=== PATIENT | female | born 1995 ===

== ENCOUNTER 2017-12-31 15:21 | Emergency (ER) | payer MEDICAID ==
[2017-12-31] MEDS ORDERED: Sodium Chloride 0.9% 1,000 ML IV STA (15:55)
--- NOTE | 2017-12-31 16:13 | ED PDOC ---
HPI: Chest Pain Time Seen by Provider: 12/31/17 15:47 Chief Complaint (Nursing): Palpitations Chief Complaint (Provider): Palpitations History Per: Patient History/Exam Limitations: no limitations Onset/Duration Of Symptoms: Days Current Symptoms Are (Timing): Still Present Additional Complaint(s): 22 y/o female with no significant PMHx presents to the ED for evaluation of on and off, sporadic palpitations, onset 3 months ago. Patient states palpitations are associated with shortness of breath and dizziness/lightheadedness. Patient reports symptoms resolve spontaneously. Denies nausea, vomiting, diarrhea, leg main, weakness, numbness, increase in caffeine intake, medications for pain and cough. No hormone pills or long distance travel. Patient is not on any me dications. No chest pain. PMD: No Provider Past Medical History Reviewed: Historical Data, Nursing Documentation, Vital Signs Vital Signs: Last Vital Signs Temp 97.3 F L 12/31/17 15:36 Pulse 79 12/31/17 17:55 Resp 20 12/31/17 17:55 BP 125/75 12/31/17 17:55 Pulse Ox 96 12/31/17 18:04 - Medical History PMH: No Chronic Diseases - Surgical History Surgical History: No Surg Hx - Family History Family History: States: Unknown Family Hx - Allergies Allergies/Adverse Reactions: Allergies Allergy/AdvReac Type Severity Reaction Status Date / Time No Known Allergies Allergy Verified 12/31/17 15:36 Review of Systems ROS Statement: Except As Marked, All Systems Reviewed And Found Negative Cardiovascular: Positive for: Palpitations Respiratory: Positive for: Shortness of Breath. Negative for: Cough Gastrointestinal: Negative for: Nausea, Vomiting, Diarrhea, Other (caffeine intake) Musculoskeletal: Negative for: Leg Pain Neurological: Positive for: Dizziness. Negative for: Weakness, Numbness Physical Exam - Reviewed Nursing Documentation Reviewed: Yes Vital Signs Reviewed: Yes - Physical Exam Appears: Positive for: Non-toxic, No Acute Distress Head Exam: Positive for: ATRAUMATIC, NORMOCEPHALIC Skin: Positive for: Normal Color, Warm, Dry Eye Exam: Positive for: Normal appearance, EOMI, PERRL ENT: Positive for: Normal ENT Inspection Neck: Positive for: Normal, Painless ROM, Supple Cardiovascular/Chest: Positive for: Regular Rate, Rhythm. Negative for: Edema, Murmur Respiratory: Positive for: Normal Breath Sounds. Negative for: Respiratory Distress Gastrointestinal/Abdominal: Positive for: Normal Exam, Soft. Negative for: Ten derness Back: Positive for: Normal Inspection. Negative for: L CVA Tenderness, R CVA Tenderness Extremity: Positive for: Normal ROM. Negative for: Tenderness, Pedal Edema, Deformity Neurologic/Psych: Positive for: Alert, teacher home therapy II-XII (INTACT), Oriented. Negative for: Motor/Sensory Deficits - Laboratory Results Result Diagrams: 12/31/17 16:36 12/31/17 16:36 Interpretation Of Abn Labs: no acute - ECG ECG: Positive for: Interpreted By Me, Viewed By Me ECG Rhythm: Positive for: ST/T Changes (anterior leads with inverted t waves.) O2 Sat by Pulse Oximetry: 96 (RA) Pulse Ox Interpretation: Normal - Progress ED Course And Treament: 1856: Stable. Dr. Amado to fu on imaging. Medical Decision Making Medical Decision Making: Time: 1600 Plan: -- EKG -- CMP -- Troponin I -- ED Urine -- CBC with differentials -- Sodium Chloride IV 1000 mls/hr -- POC Scribe Attestation: Documented by Jose Gordillo, acting as a scribe for Serafin Crespo MD. Provider Scribe Attestation: All medical record entries made by the Scribe were at my direction and personally dictated by me. I have reviewed the chart and agree that the record accurately reflects my personal performance of the history, physical exam, medical decision making, and the department course for this patient. I have also personally directed, reviewed, and agree with the discharge instructions and disposition. Disposition - Clinical Impression Clinical Impression: Palpitations, Dyspnea - Patient ED Disposition Is Patient to be Admitted: Yes - Disposition Disposition: Transfer of Care Disposition Time: 18:57 Condition: STABLE Patient Signed Over To: Shashi Amado
[2017-12-31 16:53] LABS: ALB/GLOB RATIO 1.1 (1.0-2.1); ALBUMIN 4.8 g/dL (3.5-5.0); BLOOD UREA NITROGEN 16 mg/dl (7-17); CALCIUM 9.6 mg/dL (8.4-10.2); GFR NON-AFRICAN AMERICAN > 60
[2017-12-31 16:59] LABS: BASO # 0.1 K/uL (0.0-0.2); BASO % 1.3 % (0.0-2.0); EOS # 0.2 K/uL (0.0-0.7); EOS % 1.8 % (0.0-4.0); HEMOGLOBIN 12.2 g/dL (12.0-16.0); LYMPH # 3.1 K/uL (1.0-4.3); LYMPH % 28.8 % (20.0-40.0); MEAN CELL VOLUME 72.3 fl (81.0-99.0); MEAN CORPUSCULAR HEMOGLOBIN 22.8 pg (27.0-31.0); MEAN CORPUSCULAR HGB CONC 31.5 g/dL (33.0-37.0); MEAN PLATELET VOLUME 8.5 fl (7.2-11.7); MONO # 0.9 K/uL (0.0-0.8); MONO % 8.1 % (0.0-10.0); NEUT # 6.5 K/uL (1.8-7.0); NRBC % 0.1 % (0.0-0.0); RBC 5.37 Mil/uL (3.80-5.20); WHITE BLOOD COUNT 10.8 K/uL (4.8-10.8)
[2017-12-31 17:02] LABS: ALT/SGPT 32 U/L (9-52); AST/SGOT 46 U/L (14-36)
[2017-12-31] MEDS ORDERED: Sodium Chloride 0.9% 50 ML IV ONE (18:09)
[2017-12-31] MEDS ORDERED: Iodixanol 320 MG/ML 100 ML BOTTLE IV ONE (18:09)
--- NOTE | 2017-12-31 19:01 | CT ---
Date of service: 12/31/2017 PROCEDURE: CT Chest with contrast (Pulmonary Angiogram) HISTORY: chest pain COMPARISON: None available. TECHNIQUE: Axial computed tomography images were obtained of the chest in the pulmonary arterial phase of enhancement. Coronal and sagittal reformatted images were created and reviewed. Intravenous contrast dose: Visipaque 320, 70 cc Radiation dose: Total exam DLP = 217.38 mGy-cm. This CT exam was performed using one or more of the following dose reduction techniques: Automated exposure control, adjustment of the mA and/or kV according to patient size, and/or use of iterative reconstruction technique. FINDINGS: PULMONARY ARTERIES: Unremarkable. No pulmonary embolism. AORTA: The thoracic aorta is normal in caliber. Main pulmonary artery is dilated to 3.1 cm. Clinically correlate for potential pulmonary artery hypertension. LUNGS: Unremarkable. No nodule, mass or pulmonary consolidation. PLEURAL SPACES: Unremarkable. No effusion or pneumothorax. HEART: Unremarkable. No cardiomegaly. No significant pericardial effusion. LYMPH NODES: No lymphadenopathy. BONES, CHEST WALL: Unremarkable. No fracture or destructive lesion OTHER FINDINGS: Unremarkable. IMPRESSION: 1. No pulmonary embolus identified by standard CT criteria. 2. No pulmonary infiltrate, pleural or pericardial effusion or significant lymphadenopathy. Main pulmonary artery appears somewhat dilated though not prominently so. Consider potential limited pulmonary artery hypertension. Clinically correlate further.
--- NOTE | 2017-12-31 19:05 | ED PDOC ---
- Laboratory Results Result Diagrams: 12/31/17 16:36 12/31/17 16:36 - ECG O2 Sat by Pulse Oximetry: 96 (RA) Pulse Ox Interpretation: Normal Medical Decision Making Medical Decision Making: Time: 1899 -- Patient endorsed to me by Dr. Crespo, pending CT scan results. 2099 -- Patient is feeling much better, no longer having shortness of breath -- Second troponin negative, Second EKG unchanged -- Case discussed with on-call blind eyeletter Dr. Goncalves who recommends no further intervention -- Will discharge to with strict instructions to followup in clinic in 2 days -- Advised to return to ER sooner if any worsening shortness of breath, chest pain, palpitations, dizziness, or any other concerning symptoms -- Upon discharge, patient is very well appearing with stable vital signs Scribe Attestation: Documented by Jose Gordillo acting as a scribe for Shashi Amado MD. Provider Scribe Attestation: All medical record entries made by the Scribe were at my direction and personally dictated by me. I have reviewed the chart and agree that the record accurately reflects my personal performance of the history, physical exam, medical decision making, and the department course for this patient. I have also personally directed, reviewed, and agree with the discharge instructions and disposition. Disposition - Clinical Impression Clinical Impression: Palpitations, Dyspnea - POA Present On Arrival: None - Disposition Referrals: [facility] [place] [Outside] Formerly [facility] [Outside] Disposition: Routine/Home Disposition Time: 21:21 Condition: STABLE Additional Instructions: You MUST followup in the clinic in 2 days for a checkup. If your symptoms of shortness of breath, palpitations, or any other concerning symptoms arise such as chest pain, please return to the ER for re-evaluation. Instructions: Palpitations, Shortness of Breath (Dyspnea) (DC) Forms: [facility] (Romansh)
[2017-12-31 19:12] LABS: ABG ALLEN TEST YES; ARTERIAL BLOOD GAS HCO3 20.7 mmol/L (21-28); ARTERIAL BLOOD GAS O2 SAT 92.5 % (95-98); ARTERIAL BLOOD GAS PCO2 24 mm/Hg (35-45); ARTERIAL BLOOD GAS PH 7.46 (7.35-7.45); ARTERIAL BLOOD GAS PO2 55 mm/Hg (80-100); ARTERIAL BLOOD GAS TCO2 17.8 mmol/L (22-28)
[2017-12-31 22:02] VITALS: BP 112/66; PULSE 66; RESP 18; TEMP 98.2; O2SAT 99
--- NOTE | 2018-01-01 07:52 | CARD ---
APPROVED REPORT Date of service: 12/31/2017 EKG Measurement Heart [id number] <Conclusion> Normal sinus rhythm Biatrial enlargement Right ventricular hypertrophy with repolarization abnormality Nonspecific T wave abnormality Prolonged QT Abnormal ECG
--- NOTE | 2018-01-01 10:32 | CARD ---
APPROVED REPORT Date of service: 12/31/2017 <Conclusion> Normal sinus rhythm Biatrial enlargement Right axis deviation Right ventricular hypertrophy with repolarization abnormality Nonspecific T wave abnormality Prolonged QT Abnormal ECG
== END 2017-12-31 21:42 | disposition home or self-care (01) ==
LOC: H.ER 15:21
DX: R00.2 Palpitations (principal); R06.00 Dyspnea, unspecified
CPT/HCPCS: 71275; 80053; 81025; 82803; 82948; 84484; 85025; 93005; 96360; 99285; J7030; Q9967

== ENCOUNTER 2018-01-03 16:12 | Inpatient (IN) | payer MEDICAID ==
--- NOTE | 2018-01-03 16:34 | ED PDOC ---
HPI: SOB/CHF/COPD Time Seen by Provider: 01/03/18 16:22 Chief Complaint (Nursing): Syncope Chief Complaint (Provider): SOB History Per: Patient History/Exam Limitations: no limitations Additional Complaint(s): Pt sent from [facility] for SOB. Pt reports 2 block WOLFE and palpitations X 2 months, constant. Denies fever, CP, recent travel, OCP use, calf pain/swelling. FP discussed case with Dr. Hardin who recommended admission and echo. - Risk Factors PE Risk Factors: Neg: Previous DVT, Previous PE Past Medical History Reviewed: Nursing Documentation, Vital Signs Vital Signs: Last Vital Signs Temp 97.6 F 01/03/18 16:14 Pulse 93 H 01/03/18 16:14 Resp 19 01/03/18 16:14 BP 119/63 01/03/18 16:14 Pulse Ox 100 01/03/18 16:14 - Medical History PMH: No Chronic Diseases - Surgical History Surgical History: No Surg Hx - Family History Family History: States: No Known Family Hx - Social History Current smoker - smoking cessation education provided: No Alcohol: None - Home Medications Home Medications: Ambulatory Orders Medication Instructions Recorded Apixaban [Eliquis] 2.5 mg PO BID #60 tab 01/08/18 - Allergies Allergies/Adverse Reactions: Allergies Allergy/AdvReac Type Severity Reaction Status Date / Time No Known Allergies Allergy Verified 12/31/17 15:36 Wells Criteria for PE - Wells Criteria for Pulmonary Embolism Clinical Signs and Symptoms of DVT: No P.E is #1 Diagnosis, or Equally Likely: No Heart Rate >100: No Immobilization at least 3 days;Surgery previous 4 weeks: No Previous, objectively diagnosed PE or DVT: No Hemoptysis: No Malignancy w/treatment within 6 months, or palliative: No Total Score: 0 Review of Systems Constitutional: Negative for: Fever, Chills Cardiovascular: Positive for: Palpitations. Negative for: Chest Pain, Edema Respiratory: Positive for: Shortness of Breath, SOB with Exertion. Negative for: Cough Gastrointestinal: Negative for: Abdominal Pain Skin: Negative for: Rash, Lesions Neurological: Negative for: Headache, Dizziness Physical Exam - Reviewed Nursing Documentation Reviewed: Yes Vital Signs Reviewed: Yes - Physical Exam Appears: Positive for: Well, No Acute Distress (Speaking full sentences) Skin: Positive for: Normal Color, Warm, Dry Eye Exam: Positive for: EOMI, PERRL Cardiovascular/Chest: Positive for: Regular Rate, Rhythm, Other (S3). Negative for: Murmur, Irregularly Irregular Respiratory: Positive for: Normal Breath Sounds. Negative for: Rales, Rhonchi, Wheezing Gastrointestinal/Abdominal: Positive for: Normal Exam Extremity: Positive for: Normal ROM. Negative for: Tenderness, Pedal Edema, Calf Tenderness, Swelling Neurologic/Psych: Positive for: Alert, Oriented - Laboratory Results Result Diagrams: 01/10/18 04:25 01/10/18 04:25 - ECG O2 Sat by Pulse Oximetry: 100 Medical Decision Making Medical Decision Makin yo female with WOLFE and palpitations. - labs - EKG - CXR - echo Accession No. : [id number] Patient Name / ID : CAROLIN SOSA / [id number] Exam Date : 01/03/2018 16:55:40 ( Approved ) Study Comment : Sex / Age : F / 22Y Creator : Prosper Wolfe MD Dictator : Prosper Wolfe MD [employer] Member : [employer] Officer : Prosper Wolfe MD Approver2 : Report Date : 01/03/2018 17:11:02 My Comment : Date of service: 01/03/2018 HISTORY: SOB COMPARISON: Correlations made to CT angiography of the pulmonary arteries performed 12/31/2017. TECHNIQUE: Chest PA and lateral FINDINGS: LUNGS: No active pulmonary disease. PLEURA: No significant pleural effusion identified. No pneumothorax apparent. CARDIOVASCULAR: Stable prominence of the main pulmonary artery. Cardiomediastinal silhouette otherwise within normal limits. OSSEOUS STRUCTURES: No significant abnormalities. VISUALIZED UPPER ABDOMEN: Normal. OTHER FINDINGS: None. IMPRESSION: No active disease. Disposition - Clinical Impression Clinical Impression: Palpitations, Dyspnea - Patient ED Disposition Is Patient to be Admitted: Yes - Disposition Disposition Time: 19:04 Condition: STABLE - Pt Status Changed To: Hospital Disposition Of: Inpatient - Admit Certification Admit to Inpatient:: After my assessment, the patient will require hospitalization for at least two midnights. This is because of the severity of symptoms shown, intensity of services needed, and/or the medical risk in this patient being treated as an outpatient. - POA Present On Arrival: None
[2018-01-03 16:48] LABS: BASO # 0.1 K/uL (0.0-0.2); EOS # 0.1 K/uL (0.0-0.7); EOS % 0.9 % (0.0-4.0); HEMOGLOBIN 12.7 g/dL (12.0-16.0); LYMPH # 3.3 K/uL (1.0-4.3); MEAN CORPUSCULAR HEMOGLOBIN 22.5 pg (27.0-31.0); MEAN CORPUSCULAR HGB CONC 31.2 g/dL (33.0-37.0); MONO # 0.7 K/uL (0.0-0.8); MONO % 6.8 % (0.0-10.0); NEUT # 5.6 K/uL (1.8-7.0); NEUT % 57.3 % (50.0-75.0); RBC 5.64 Mil/uL (3.80-5.20); RED CELL DISTRIBUTION WIDTH 17.6 % (11.5-14.5); WHITE BLOOD COUNT 9.7 K/uL (4.8-10.8)
[2018-01-03 16:53] LABS: INR 1.3; PROTHROMBIN TIME 14.1 Seconds (9.8-13.1)
[2018-01-03 17:11] LABS: ALB/GLOB RATIO 1.1 (1.0-2.1); ALBUMIN 5.1 g/dL (3.5-5.0); ALT/SGPT 34 U/L (9-52); AST/SGOT 32 U/L (14-36); BLOOD UREA NITROGEN 13 mg/dl (7-17); CALCIUM 9.7 mg/dL (8.4-10.2); GFR NON-AFRICAN AMERICAN > 60
--- NOTE | 2018-01-03 17:13 | RAD ---
Date of service: 01/03/2018 HISTORY: SOB COMPARISON: Correlations made to CT angiography of the pulmonary arteries performed 12/31/2017. TECHNIQUE: Chest PA and lateral FINDINGS: LUNGS: No active pulmonary disease. PLEURA: No significant pleural effusion identified. No pneumothorax apparent. CARDIOVASCULAR: Stable prominence of the main pulmonary artery. Cardiomediastinal silhouette otherwise within normal limits. OSSEOUS STRUCTURES: No significant abnormalities. VISUALIZED UPPER ABDOMEN: Normal. OTHER FINDINGS: None. IMPRESSION: No active disease.
[2018-01-03 17:19] LABS: B-TYPE NATRIURETIC PEPTIDE 1450 pg/ml (0-450)
[2018-01-03] MEDS ORDERED: Iodixanol 320 MG/ML 100 ML BOTTLE IV ONE (17:42)
[2018-01-03] MEDS ORDERED: Sodium Chloride 0.9% 50 ML IV ONE (17:42)
[2018-01-03 17:43] LABS: SQUAMOUS EPITHIAL 1 /hpf (0-5); URINE BILIRUBIN NEGATIVE (NEGATIVE); URINE BLOOD NEGATIVE (NEGATIVE); URINE CLARITY SLIGHTY-CLOUDY (Clear); URINE COLOR YELLOW (YELLOW); URINE GLUCOSE (UA) NEG (Normal); URINE LEUKOCYTE ESTERASE TRACE Leu/uL (Negative); URINE PROTEIN 30 mg/dL (NEGATIVE); URINE UROBILINOGEN 0.2-1.0 mg/dL (0.2-1.0)
--- NOTE | 2018-01-03 18:58 | CT ---
Date of service: 01/03/2018 CTA chest PE protocol Indication: Shortness of breath Technique: Contiguous axial images were obtained through the chest with intravenous contrast enhancement. Sagittal and coronal reconstructions were generated and reviewed. This CT exam was performed using 1 or more of the following dose reduction techniques: Automated exposure control, adjustment of the MAA and/or kV according to patient size, and/or use of iterative reconstruction technique. IV contrast: 99 mL Visipaque 320 Radiation dose (DLP): 185.41 MGy-cm. Comparison: Chest x-ray performed 01/03/18 Findings: Visualized portions of the inferior thyroid gland appear unremarkable. The mediastinal and hilar vascular structures appear within normal limits. The heart appears within normal limits of size. No large central or segmental pulmonary embolus evident. No focal consolidation. No pleural effusion. No pneumothorax. No suspicious pulmonary nodules measuring greater than 5 mm. Elevation of the right hemidiaphragm. Limited visualized portions of the upper abdomen appear grossly unremarkable. No acute osseous abnormality is detected. Impression: No large central or segmental pulmonary embolus identified.
--- NOTE | 2018-01-03 20:02 | CP.PCM.HP ---
<Keenan Roy - Last Filed: 01/03/18 19:25> History of Present Illness - History of Present Illness History of Present Illness: CC: dyspnea HPI: 22 y/o woman w/ no pmh sent from the clinic to the ED for dyspnea. Patient was seen in [facility] today and during ambulation, her O2 saturation dropped down in the 80s. The patient reports episodes of dyspnea w/ palpitations going on for the past 2 months. The patient is unsure of when exactly or how her symptoms started. Patient reports episodes are becoming more frequent and she is unable to walk without becoming short of breath after a few feet. Patient works in a [employer] and is unable to walk down entire aisle without becoming short of breath. Patient reports associated palpitations, headaches, and lightheadedness that lasts a few seconds. Patient reports 1 episode of LOC about 1 month ago for which she was brought to [facility]. Patient denies trauma, seizure, nausea, vomiting, diarrhea, dysuria, fever, swelling, recent illness, or recent travel. ED course: vitals: 98.3 F, 85 beats/min, 106/67 mm Hg, resp 19, O2 95% room air CBC: 9.7>12.7/40.6<424 PT: 14.1 INR: 1.3 aPTT: 35.0 D-dimer: 2102 CMP: 142/3.8, 107/20, 13/0.6, glucose 81, AST 32, ALT 34, alk phos 101 troponin: <0.0120 pro-BNP: 1450 TSH: 4.60 EKG: right axis deviation, RVH CXR: no active disease CT chest: no large central or segmental pulmonary embolus PMD: [facility] PMH: none meds: none PSH: none Fam: Hx LVH on mother's side of the family SOC: denies smoking, alcohol, and drugs ROS: 12 points assessed and negative unless otherwise reported in HPI Present on Admission - Present on Admission Any Indicators Present on Admission: No History of DVT/PE: No History of Uncontrolled Diabetes: No Urinary Catheter: No Decubitus Ulcer Present: No Review of Systems - Review of Systems All systems: reviewed and no additional remarkable complaints except - Constitutional Constitutional: Headache. absent: Chills, Fever - EENT Eyes: absent: Change in Vision - Cardiovascular Cardiovascular: As Per HPI, Dyspnea, Dyspnea on Exertion, Palpitations, Syncope. absent: Chest Pain, Leg Edema - Respiratory Respiratory: As Per HPI, Dyspnea. absent: Cough - Gastrointestinal Gastrointestinal: absent: Abdominal Pain, Diarrhea, Nausea, Vomiting - Genitourinary Genitourinary: absent: Dysuria - Integumentary Integumentary: absent: Rash - Neurological Neurological: Dizziness, Headaches, Syncope Past Patient History - Infectious Disease Hx of Infectious Diseases: None - Past Social History Alcohol: None - PSYCHIATRIC Hx Substance Use: No Meds Allergies/Adverse Reactions: Allergies Allergy/AdvReac Type Severity Reaction Status Date / Time No Known Allergies Allergy Verified 12/31/17 15:36 Physical Exam - Constitutional Appears: Non-toxic, No Acute Distress - Head Exam Head Exam: ATRAUMATIC, NORMAL INSPECTION, NORMOCEPHALIC - Eye Exam Eye Exam: EOMI, PERRL Additional comments: right amblyopia - ENT Exam ENT Exam: Mucous Membranes Moist - Neck Exam Neck exam: Positive for: Full Rom. Negative for: Tenderness - Respiratory Exam Respiratory Exam: Clear to Auscultation Bilateral. absent: Accessory Muscle Use, Decreased Breath Sounds, Rales, Rhonchi, Wheezes - Cardiovascular Exam Cardiovascular Exam: Tachycardia, Gallop, REGULAR RHYTHM, +S1, +S2. absent: Diastolic murmur, Systolic Murmur - GI/Abdominal Exam GI & Abdominal Exam: Normal Bowel Sounds, Soft. absent: Distended, Tenderness - Extremities Exam Extremities exam: Positive for: normal inspection, pedal pulses present. Negative for: calf tenderness, pedal edema, tenderness - Neurological Exam Neurological exam: Alert, Oriented x3 - Psychiatric Exam Psychiatric exam: Normal Affect, Normal Mood - Skin Skin Exam: Dry, Intact, Normal Color, Warm Results - Vital Signs Recent Vital Signs: Last Vital Signs Temp 97.6 F 01/03/18 16:14 Pulse 93 H 01/03/18 16:14 Resp 19 01/03/18 16:14 BP 119/63 01/03/18 16:14 Pulse Ox 100 01/03/18 17:14 - Labs Result Diagrams: 01/03/18 16:44 01/03/18 16:44 Labs: Laboratory Results - last 24 hr 01/03/18 01/03/18 01/03/18 16:44 16:44 16:44 WBC 9.7 RBC 5.64 H Hgb 12.7 Hct 40.6 MCV 72.0 L MCH 22.5 L MCHC 31.2 L RDW 17.6 H Plt Count 424 H MPV 8.0 Neut % (Auto) 57.3 Lymph % (Auto) 34.0 Leon % (Auto) 6.8 Eos % (Auto) 0.9 Baso % (Auto) 1.0 Neut # (Auto) 5.6 Lymph # (Auto) 3.3 Leon # (Auto) 0.7 Eos # (Auto) 0.1 Baso # (Auto) 0.1 PT 14.1 H INR 1.3 APTT 35.0 D-Dimer, Quantitative 2102 H Sodium 142 Potassium 3.8 Chloride 107 Carbon Dioxide 20 L Anion Gap 19 BUN 13 Creatinine 0.6 L Est GFR ( Amer) > 60 Est GFR (Non-Af Amer) > 60 Random Glucose 81 Calcium 9.7 Total Bilirubin 0.7 AST 32 ALT 34 Alkaline Phosphatase 101 Troponin I < 0.0120 NT-Pro-B Natriuret Pep 1450 H Total Protein 9.6 H Albumin 5.1 H Globulin 4.5 H Albumin/Globulin Ratio 1.1 TSH 3rd Generation Urine Color Urine Clarity Urine pH Ur Specific [place] Urine Protein Urine Glucose (UA) Urine Ketones Urine Blood Urine Nitrate Urine Bilirubin Urine Urobilinogen Ur Leukocyte Esterase Urine RBC (Auto) Urine Microscopic WBC Ur Squamous Epith Cells Blood Type Antibody Screen BBK History Checked 01/03/18 01/03/18 01/03/18 16:46 17:34 17:40 WBC RBC Hgb Hct MCV MCH MCHC RDW Plt Count MPV Neut % (Auto) Lymph % (Auto) Leon % (Auto) Eos % (Auto) Baso % (Auto) Neut # (Auto) Lymph # (Auto) Leon # (Auto) Eos # (Auto) Baso # (Auto) PT INR APTT D-Dimer, Quantitative Sodium Potassium Chloride Carbon Dioxide Anion Gap BUN Creatinine Est GFR ( Amer) Est GFR (Non-Af Amer) Random Glucose Calcium Total Bilirubin AST ALT Alkaline Phosphatase Troponin I NT-Pro-B Natriuret Pep Total Protein Albumin Globulin Albumin/Globulin Ratio TSH 3rd Generation 4.60 Urine Color Yellow Urine Clarity Slighty-cloudy Urine pH 5.0 Ur Specific [place] 1.019 Urine Protein 30 Urine Glucose (UA) Neg Urine Ketones Negative Urine Blood Negative Urine Nitrate Negative Urine Bilirubin Negative Urine Urobilinogen 0.2-1.0 Ur Leukocyte Esterase Trace Urine RBC (Auto) 1 Urine Microscopic WBC 2 Ur Squamous Epith Cells 1 Blood Type O POSITIVE Antibody Screen Negative BBK History Checked No verified bt Assessment & Plan (1) Dyspnea Status: Acute (2) Palpitations Status: Acute - Assessment and Plan (Free Text) Assessment: 22 y/o woman w/ no pmh sent from the clinic to the ED for dyspnea. Plan: Dyspnea - dyspnea on exertion - hypoxemia on exertion - vital signs stable - CBC: 9.7>12.7/40.6<424 - PT: 14.1 - INR: 1.3 - aPTT: 35.0 - D-dimer: 2102 - CMP: 142/3.8, 107/20, 13/0.6, glucose 81, AST 32, ALT 34, alk phos 101 - troponin: <0.0120 - pro-BNP: 1450 - TSH: 4.60 - EKG: right axis deviation, RVH - CXR: no active disease - CT chest: no large central or segmental pulmonary embolus - f/u CBC, CMP - f/u ABG - f/u repeat EKG - f/u echo - cardiology consult ordered - monitor for acute changes - admit to Tele Palpitations - no murmurs on exam - S3 audible - f/u repeat EKG - f/u echo - cardiology consulted Prophylactic measures - DVT: lovenox 40 mg SC daily <Marty Myrick - Last Filed: 01/04/18 17:35> Results - Vital Signs Recent Vital Signs: Last Vital Signs Temp 98 F 01/04/18 16:00 Pulse 89 01/04/18 16:00 Resp 18 01/04/18 16:00 BP 96/61 L 01/04/18 16:00 Pulse Ox 91 L 01/04/18 16:00 - Labs Result Diagrams: 01/04/18 05:25 01/04/18 05:25 Labs: Laboratory Results - last 24 hr 01/03/18 01/03/18 01/03/18 16:46 17:34 17:40 WBC RBC Hgb Hct MCV MCH MCHC RDW Plt Count MPV Neut % (Auto) Lymph % (Auto) Leon % (Auto) Eos % (Auto) Baso % (Auto) Neut # (Auto) Lymph # (Auto) Leon # (Auto) Eos # (Auto) Baso # (Auto) ESR pCO2 pO2 HCO3 ABG pH ABG Total CO2 ABG O2 Saturation ABG O2 Content ABG Base Excess ABG Hemoglobin ABG Carboxyhemoglobin POC ABG HHb (Measured) ABG Methemoglobin ABG O2 Capacity Jeff Test A-a O2 Difference Hgb O2 Saturation FiO2 Blood Gas Comments Crit Value Read Back Sodium Potassium Chloride Carbon Dioxide Anion Gap BUN Creatinine Est GFR ( Amer) Est GFR (Non-Af Amer) Random Glucose Calcium Iron TIBC % Saturation Total Bilirubin AST ALT Alkaline Phosphatase Total Protein Albumin Globulin Albumin/Globulin Ratio TSH 3rd Generation 4.60 Urine Color Yellow Urine Clarity Slighty-cloudy Urine pH 5.0 Ur Specific [place] 1.019 Urine Protein 30 Urine Glucose (UA) Neg Urine Ketones Negative Urine Blood Negative Urine Nitrate Negative Urine Bilirubin Negative Urine Urobilinogen 0.2-1.0 Ur Leukocyte Esterase Trace Urine RBC (Auto) 1 Urine Microscopic WBC 2 Ur Squamous Epith Cells 1 Blood Type O POSITIVE Antibody Screen Negative BBK History Checked No verified bt 01/03/18 01/04/18 01/04/18 19:56 05:25 05:25 WBC 10.7 RBC 5.11 Hgb 11.6 L Hct 36.2 MCV 71.0 L MCH 22.7 L MCHC 32.0 L RDW 17.8 H Plt Count 411 H MPV 8.3 Neut % (Auto) 48.5 L Lymph % (Auto) 40.2 H Leon % (Auto) 9.0 Eos % (Auto) 1.6 Baso % (Auto) 0.7 Neut # (Auto) 5.2 Lymph # (Auto) 4.3 Leon # (Auto) 1.0 H Eos # (Auto) 0.2 Baso # (Auto) 0.1 ESR pCO2 24 L pO2 60 L HCO3 21.6 ABG pH 7.48 H ABG Total CO2 18.6 L ABG O2 Saturation 94.1 L ABG O2 Content 15.3 ABG Base Excess -4.1 L ABG Hemoglobin 11.9 ABG Carboxyhemoglobin 1.8 H POC ABG HHb (Measured) 5.7 H ABG Methemoglobin 1.2 ABG O2 Capacity 16.3 Jeff Test Yes A-a O2 Difference 60.0 Hgb O2 Saturation 91.2 L FiO2 21.0 Blood Gas Comments 21%rr Crit Value Read Back N Sodium 142 Potassium 3.9 Chloride 110 H Carbon Dioxide 21 L Anion Gap 15 BUN 13 Creatinine 0.7 Est GFR ( Amer) > 60 Est GFR (Non-Af Amer) > 60 Random Glucose 79 Calcium 9.1 Iron TIBC % Saturation Total Bilirubin 0.6 AST 24 ALT 29 Alkaline Phosphatase 80 Total Protein 7.5 Albumin 4.0 Globulin 3.5 Albumin/Globulin Ratio 1.1 TSH 3rd Generation Urine Color Urine Clarity Urine pH Ur Specific [place] Urine Protein Urine Glucose (UA) Urine Ketones Urine Blood Urine Nitrate Urine Bilirubin Urine Urobilinogen Ur Leukocyte Esterase Urine RBC (Auto) Urine Microscopic WBC Ur Squamous Epith Cells Blood Type Antibody Screen BBK History Checked 01/04/18 01/04/18 13:58 13:58 WBC RBC Hgb Hct MCV MCH MCHC RDW Plt Count MPV Neut % (Auto) Lymph % (Auto) Leon % (Auto) Eos % (Auto) Baso % (Auto) Neut # (Auto) Lymph # (Auto) Leon # (Auto) Eos # (Auto) Baso # (Auto) ESR 8 pCO2 pO2 HCO3 ABG pH ABG Total CO2 ABG O2 Saturation ABG O2 Content ABG Base Excess ABG Hemoglobin ABG Carboxyhemoglobin POC ABG HHb (Measured) ABG Methemoglobin ABG O2 Capacity Jeff Test A-a O2 Difference Hgb O2 Saturation FiO2 Blood Gas Comments Crit Value Read Back Sodium Potassium Chloride Carbon Dioxide Anion Gap BUN Creatinine Est GFR ( Amer) Est GFR (Non-Af Amer) Random Glucose Calcium Iron 20 L TIBC 419 % Saturation 5 L Total Bilirubin AST ALT Alkaline Phosphatase Total Protein Albumin Globulin Albumin/Globulin Ratio TSH 3rd Generation Urine Color Urine Clarity Urine pH Ur Specific [place] Urine Protein Urine Glucose (UA) Urine Ketones Urine Blood Urine Nitrate Urine Bilirubin Urine Urobilinogen Ur Leukocyte Esterase Urine RBC (Auto) Urine Microscopic WBC Ur Squamous Epith Cells Blood Type Antibody Screen BBK History Checked Attending/Attestation - Attestation I have personally seen and examined this patient.: Yes I have fully participated in the care of the patient.: Yes I have reviewed all pertinent clinical information: Yes Notes (Text): Hypoxia Dyspnea on exertion Possible PE Possible Shunt? check bubble study
[2018-01-04 06:37] LABS: BASO # 0.1 K/uL (0.0-0.2); BASO % 0.7 % (0.0-2.0); EOS # 0.2 K/uL (0.0-0.7); EOS % 1.6 % (0.0-4.0); HEMOGLOBIN 11.6 g/dL (12.0-16.0); LYMPH # 4.3 K/uL (1.0-4.3); LYMPH % 40.2 % (20.0-40.0); MEAN CORPUSCULAR HEMOGLOBIN 22.7 pg (27.0-31.0); MEAN PLATELET VOLUME 8.3 fl (7.2-11.7); NEUT # 5.2 K/uL (1.8-7.0); NEUT % 48.5 % (50.0-75.0); NRBC % 0.1 % (0.0-0.0); RBC 5.11 Mil/uL (3.80-5.20); RED CELL DISTRIBUTION WIDTH 17.8 % (11.5-14.5); WHITE BLOOD COUNT 10.7 K/uL (4.8-10.8)
[2018-01-04 06:54] LABS: ALB/GLOB RATIO 1.1 (1.0-2.1); ALT/SGPT 29 U/L (9-52); AST/SGOT 24 U/L (14-36); BLOOD UREA NITROGEN 13 mg/dl (7-17); CALCIUM 9.1 mg/dL (8.4-10.2); GFR NON-AFRICAN AMERICAN > 60
[2018-01-04 08:51] LABS: ABG ALLEN TEST YES; ARTERIAL BLOOD GAS HCO3 21.6 mmol/L (21-28); ARTERIAL BLOOD GAS HEMOGLOBIN 11.9 g/dL (11.7-17.4); ARTERIAL BLOOD GAS O2 CAPACITY 16.3 mL/dL (16-24); ARTERIAL BLOOD GAS O2 CONTENT 15.3 ML/dL (15-23); ARTERIAL BLOOD GAS O2 SAT 94.1 % (95-98); ARTERIAL BLOOD GAS PCO2 24 mm/Hg (35-45); ARTERIAL BLOOD GAS PH 7.48 (7.35-7.45); ARTERIAL BLOOD GAS PO2 60 mm/Hg (80-100); ARTERIAL BLOOD GAS TCO2 18.6 mmol/L (22-28)
--- NOTE | 2018-01-04 09:31 | CARD ---
APPROVED REPORT Date of service: 01/03/2018 EKG Measurement Heart [id number] <Conclusion> Normal sinus rhythm Biatrial enlargement Right axis deviation Pulmonary disease pattern Right ventricular hypertrophy with repolarization abnormality Nonspecific T wave abnormality Prolonged QT Abnormal ECG
--- NOTE | 2018-01-04 10:53 | CP.PCM.CON ---
History of Present Illness - History of Present Illness History of Present Illness: CARDIOLOGY CONSULT 22 y/o female admitted with WOLFE and palpitations Pt claims that 1 month ago she started having WOLFE associated with palpitations vague c/o chest pain no leg swelling or pain CT Scan 12/31 : dilated Pulmonary Artery 01/03 does not report this EKG: [facility] Echo: Dilated Right Ventricle / RA and large Pulmonary Artery with increased PA pressure @ 76 Severe TR All consistent with Pulmonary Embolus Past Patient History - Infectious Disease Hx of Infectious Diseases: None - Past Medical History & Family History Past Medical History?: No - Past Social History Smoking Status: Never Smoked - CARDIAC Hx Cardiac Disorders: No - PULMONARY Hx Respiratory Disorders: No - NEUROLOGICAL Hx Syncope: Yes - HEENT Hx HEENT Problems: No - RENAL Hx Chronic Kidney Disease: No - ENDOCRINE/METABOLIC Hx Endocrine Disorders: No - HEMATOLOGICAL/ONCOLOGICAL Hx Blood Disorders: No - INTEGUMENTARY Hx Dermatological Problems: No - MUSCULOSKELETAL/RHEUMATOLOGICAL Hx Falls: Yes - GASTROINTESTINAL Hx Gastrointestinal Disorders: No - GENITOURINARY/GYNECOLOGICAL Hx Genitourinary Disorders: No - PSYCHIATRIC Hx Substance Use: No - SURGICAL HISTORY Hx Surgeries: No - ANESTHESIA Hx Anesthesia: No Hx Anesthesia Reactions: No Meds Allergies/Adverse Reactions: Allergies Allergy/AdvReac Type Severity Reaction Status Date / Time No Known Allergies Allergy Verified 12/31/17 15:36 - Medications Medications: Current Medications Enoxaparin Sodium (Lovenox) 40 mg SC DAILY [facility]; Protocol Physical Exam - Constitutional Appears: Well - Head Exam Head Exam: NORMAL INSPECTION, NORMOCEPHALIC - Eye Exam Eye Exam: Normal appearance - ENT Exam ENT Exam: Normal Exam - Neck Exam Neck exam: Positive for: Normal Inspection - Respiratory Exam Respiratory Exam: NORMAL BREATHING PATTERN - Cardiovascular Exam Cardiovascular Exam: REGULAR RHYTHM Results - Vital Signs Recent Vital Signs: Last Vital Signs Temp 98.2 F 01/04/18 08:00 Pulse 84 01/04/18 08:00 Resp 22 01/04/18 08:00 BP 88/60 L 01/04/18 08:00 Pulse Ox 99 01/04/18 08:00 - Labs Result Diagrams: 01/04/18 05:25 01/04/18 05:25 Labs: Laboratory Results - last 24 hr 01/03/18 01/03/18 01/03/18 16:44 16:44 16:44 WBC 9.7 RBC 5.64 H Hgb 12.7 Hct 40.6 MCV 72.0 L MCH 22.5 L MCHC 31.2 L RDW 17.6 H Plt Count 424 H MPV 8.0 Neut % (Auto) 57.3 Lymph % (Auto) 34.0 [place] % (Auto) 6.8 Eos % (Auto) 0.9 Baso % (Auto) 1.0 Neut # (Auto) 5.6 Lymph # (Auto) 3.3 [place] # (Auto) 0.7 Eos # (Auto) 0.1 Baso # (Auto) 0.1 PT 14.1 H INR 1.3 APTT 35.0 D-Dimer, Quantitative 2102 H pCO2 pO2 HCO3 ABG pH ABG Total CO2 ABG O2 Saturation ABG O2 Content ABG Base Excess ABG Hemoglobin ABG Carboxyhemoglobin POC ABG HHb (Measured) ABG Methemoglobin ABG O2 Capacity Jeff Test A-a O2 Difference Hgb O2 Saturation FiO2 Blood Gas Comments Crit Value Read Back Sodium 142 Potassium 3.8 Chloride 107 Carbon Dioxide 20 L Anion Gap 19 BUN 13 Creatinine 0.6 L Est GFR ( Amer) > 60 Est GFR (Non-Af Amer) > 60 Random Glucose 81 Calcium 9.7 Total Bilirubin 0.7 AST 32 ALT 34 Alkaline Phosphatase 101 Troponin I < 0.0120 NT-Pro-B Natriuret Pep 1450 H Total Protein 9.6 H Albumin 5.1 H Globulin 4.5 H Albumin/Globulin Ratio 1.1 TSH 3rd Generation Urine Color Urine Clarity Urine pH Ur Specific [place] Urine Protein Urine Glucose (UA) Urine Ketones Urine Blood Urine Nitrate Urine Bilirubin Urine Urobilinogen Ur Leukocyte Esterase Urine RBC (Auto) Urine Microscopic WBC Ur Squamous Epith Cells Blood Type Antibody Screen BBK History Checked 01/03/18 01/03/18 01/03/18 16:46 17:34 17:40 WBC RBC Hgb Hct MCV MCH MCHC RDW Plt Count MPV Neut % (Auto) Lymph % (Auto) [place] % (Auto) Eos % (Auto) Baso % (Auto) Neut # (Auto) Lymph # (Auto) [place] # (Auto) Eos # (Auto) Baso # (Auto) PT INR APTT D-Dimer, Quantitative pCO2 pO2 HCO3 ABG pH ABG Total CO2 ABG O2 Saturation ABG O2 Content ABG Base Excess ABG Hemoglobin ABG Carboxyhemoglobin POC ABG HHb (Measured) ABG Methemoglobin ABG O2 Capacity Jeff Test A-a O2 Difference Hgb O2 Saturation FiO2 Blood Gas Comments Crit Value Read Back Sodium Potassium Chloride Carbon Dioxide Anion Gap BUN Creatinine Est GFR ( Amer) Est GFR (Non-Af Amer) Random Glucose Calcium Total Bilirubin AST ALT Alkaline Phosphatase Troponin I NT-Pro-B Natriuret Pep Total Protein Albumin Globulin Albumin/Globulin Ratio TSH 3rd Generation 4.60 Urine Color Yellow Urine Clarity Slighty-cloudy Urine pH 5.0 Ur Specific [place] 1.019 Urine Protein 30 Urine Glucose (UA) Neg Urine Ketones Negative Urine Blood Negative Urine Nitrate Negative Urine Bilirubin Negative Urine Urobilinogen 0.2-1.0 Ur Leukocyte Esterase Trace Urine RBC (Auto) 1 Urine Microscopic WBC 2 Ur Squamous Epith Cells 1 Blood Type O POSITIVE Antibody Screen Negative BBK History Checked No verified bt 01/03/18 01/04/18 01/04/18 19:56 05:25 05:25 WBC 10.7 RBC 5.11 Hgb 11.6 L Hct 36.2 MCV 71.0 L MCH 22.7 L MCHC 32.0 L RDW 17.8 H Plt Count 411 H MPV 8.3 Neut % (Auto) 48.5 L Lymph % (Auto) 40.2 H [place] % (Auto) 9.0 Eos % (Auto) 1.6 Baso % (Auto) 0.7 Neut # (Auto) 5.2 Lymph # (Auto) 4.3 [place] # (Auto) 1.0 H Eos # (Auto) 0.2 Baso # (Auto) 0.1 PT INR APTT D-Dimer, Quantitative pCO2 24 L pO2 60 L HCO3 21.6 ABG pH 7.48 H ABG Total CO2 18.6 L ABG O2 Saturation 94.1 L ABG O2 Content 15.3 ABG Base Excess -4.1 L ABG Hemoglobin 11.9 ABG Carboxyhemoglobin 1.8 H POC ABG HHb (Measured) 5.7 H ABG Methemoglobin 1.2 ABG O2 Capacity 16.3 Jeff Test Yes A-a O2 Difference 60.0 Hgb O2 Saturation 91.2 L FiO2 21.0 Blood Gas Comments 21%rr Crit Value Read Back N Sodium 142 Potassium 3.9 Chloride 110 H Carbon Dioxide 21 L Anion Gap 15 BUN 13 Creatinine 0.7 Est GFR ( Amer) > 60 Est GFR (Non-Af Amer) > 60 Random Glucose 79 Calcium 9.1 Total Bilirubin 0.6 AST 24 ALT 29 Alkaline Phosphatase 80 Troponin I NT-Pro-B Natriuret Pep Total Protein 7.5 Albumin 4.0 Globulin 3.5 Albumin/Globulin Ratio 1.1 TSH 3rd Generation Urine Color Urine Clarity Urine pH Ur Specific [place] Urine Protein Urine Glucose (UA) Urine Ketones Urine Blood Urine Nitrate Urine Bilirubin Urine Urobilinogen Ur Leukocyte Esterase Urine RBC (Auto) Urine Microscopic WBC Ur Squamous Epith Cells Blood Type Antibody Screen BBK History Checked Assessment & Plan (1) Pulmonary embolus Assessment and Plan: Echo is consistent with Pulmonary Embolus Suggest Pulmonary Consult Status: Acute
[2018-01-04] MEDS: Enoxaparin 40 mg Syringe SC SCH ×2 (10:56→11:53)
[2018-01-04] MEDS ORDERED: Heparin 25,000units in D5W 25,000 UNITS/250 ML BAG IV SCH (11:15)
--- NOTE | 2018-01-04 11:45 | CP.PCM.PN ---
Addendum entered and electronically signed by Valarie Godwin MD 01/04/18 16:02: Patient seen and examined. All chart and clinical data reviewed . Care resumed . Case discussed with resident . Agree with assessment and plan. 22 y/o female with no significant PMH admitted for hypoxemia. ABG showed PO2 60 CTA chest showed no PE ( was discussed with radiologist Dr. Gee in detail ) ECho showed RV and RA dilatation with elevated PA pressures [address] Sacha Quevedo etiology of hypoxemia, probably primary pulmonary hypertenison Will transfer patient to ICU for close monitoring 3 L O2 via [place] Pulmonary consulted Original Note: Subjective - Date & Time of Evaluation Date of Evaluation: 01/04/18 Time of Evaluation: 08:45 - Subjective Subjective: Patient seen at bedside in not acute distress. NO acute events since admission. She tolerates flat decubitus. Denies CP, afebrile. States all symptoms started about 1 M/a. SOB is usually with exertion. 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 Denies recent illness, born in the [facility] and no recent travel Hx. Denies drugs or tobacco abuse. Objective - Vital Signs/Intake and Output Vital Signs (last 24 hours): Temp Pulse Resp BP Pulse Ox 98.2 F 84 22 88/60 L 99 01/04/18 08:00 01/04/18 09:00 01/04/18 08:00 01/04/18 08:00 01/04/18 08:00 Intake and Output: 01/04/18 01/04/18 06:59 18:59 Intake Total 860 Balance 860 - Medications Medications: Current Medications Enoxaparin Sodium (Lovenox) 40 mg SC DAILY [facility]; Protocol Last Admin: 01/04/18 10:56 Dose: Not Given - Labs Labs: 01/04/18 05:25 01/04/18 05:25 PT 14.1 Seconds (9.8-13.1) H 01/03/18 16:44 INR 1.3 01/03/18 16:44 APTT 35.0 Seconds (25.6-37.1) 01/03/18 16:44 - Constitutional Appears: Non-toxic, No Acute Distress - Eye Exam Eye Exam: EOMI, PERRL. absent: Normal appearance (R/eye ptosis) - ENT Exam ENT Exam: Mucous Membranes Moist - Respiratory Exam Respiratory Exam: Clear to Ausculation Bilateral, NORMAL BREATHING PATTERN - Cardiovascular Exam Cardiovascular Exam: REGULAR RHYTHM, +S1, +S2. absent: Murmur - Extremities Exam Extremities Exam: Full ROM, Normal Capillary Refill, Normal Inspection. absent: Pedal Edema, Tenderness - Neurological Exam Neurological Exam: Alert, Awake, Oriented x3 - Psychiatric Exam Psychiatric exam: Normal Affect, Normal Mood - Skin Skin Exam: Normal Color, Warm Assessment and Plan - Assessment and Plan (Free Text) Assessment: 22 y/o admitted for recent onset of SOB on exertion Hypoxemia with Dyspnea and palpitations on exertion Started 1 m/a and worsened Tolerates room air ABG this AM shows low PO2(60) and PH is 7.[address] angio x2(12/31/17 and 01/03/18) neg for PE DDimers elevated Rest of blood work unremarkable EKG shows RVH Cardiology consulted: Dr Goncalves, Echo reviewed and positive for pulm HTN, and increased r/heart pressures. As per Cardio suspicious for PE and rec Pulm Consult Pulmonology consult placed: Dr Cardoan. F/U recs Critical Care consult: Dr Hair. Patient transferred to ICU for closer monitoring and questionable PE Hypercoag workup ordered. F/U LE US ordered to R/O DVT Prophylactic measures - DVT: lovenox 40 mg SC daily
--- NOTE | 2018-01-04 12:16 | CARD ---
APPROVED REPORT Date of service: 01/04/2018 EXAM: Two-dimensional and M-mode echocardiogram with Doppler and color Doppler. Other Information Quality : GoodRhythm : NSR INDICATION Dyspnea 2D DIMENSIONS IVSd0.91 (0.7-1.1cm)LVDd3.06 (3.9-5.9cm) LVOT Diameter1.88 (1.8-2.4cm)PWd0.91 (0.7-1.1cm) IVSs0.78 (0.8-1.2cm)LVDs2.68 (2.5-4.0cm) FS (%) 12.7 %PWs1.12 (0.8-1.2cm) M-Mode DIMENSIONS Left Atrium (MM)2.94 (2.5-4.0cm)IVSd1.00 (0.7-1.1cm) Aortic Root2.37 (2.2-3.7cm)LVDd3.49 (4.0-5.6cm) Aortic Cusp Exc.1.74 (1.5-2.0cm)PWd0.72 (0.7-1.1cm) IVSs1.00 cmFS (%) 29 % LVDs2.49 (2.0-3.8cm)PWs1.31 cm Aortic Valve AoV Peak Aznlbpmc11.7cm/sAoV VTI16.2cmAO Peak GR.3mmHg LVOT Peak Kaecfhpr54.8cm/sLVOT VTI10.99cmAO Mean GR.2mmHg PARISH (VMAX)1.59oe6VXT (VTI)1.22cm2 Mitral Valve MV E Srgxabii52.7cm/sMV DECEL [id number] A Kyafqmmc62.2cm/s MV [id number]/A ratio1.0MVA (PHT)2.10cm2 TDI E/Lateral E'0.0E/Medial E'0.0 Tricuspid Valve TR Peak Dcxqrymn578hy/sRAP PTLLHBKS14ihNuTT Peak Gr.66mmHg [id number] LEFT VENTRICLE The left ventricle is normal size. There is normal left ventricular wall thickness. The left ventricular systolic function is normal. The estimated ejection fraction is 55%. Calculated EF on M mode is 56%. No regional wall motion abnormalities noted.. Transmitral Doppler flow pattern is normal for age. No left ventricle thrombus noted on this study. There is no ventricular septal defect visualized. There is no left ventricular aneurysm. There is no mass noted in the left ventricle. RIGHT VENTRICLE The right ventricle is moderate to severely dilated. There is normal right ventricular wall thickness. Systolic function is mildly reduced ( TAPSE 1.47 cm). Right Ventricular septal motion is consistent with both pressure and volume overload. ATRIA The left atrium size is normal. The right atrium is mildly dilated. The interatrial septum is intact with no evidence for an atrial septal defect. AORTIC VALVE The aortic valve is normal in structure. No aortic regurgitation is present. There is no aortic valvular stenosis. There is no aortic valvular vegetation. MITRAL VALVE The mitral valve is normal in structure. There is no evidence of mitral valve prolapse. There is no mitral valve stenosis. There is no mitral valve regurgitation noted. TRICUSPID VALVE The tricuspid valve is normal in structure. There is moderate to severe tricuspid regurgitation. RVSP is calculated at 72 mm Hg and consistent with severe pulmonary HTN. There is no tricuspid valve prolapse or vegetation. There is no tricuspid valve stenosis. PULMONIC VALVE The pulmonary valve is normal in structure. There is no pulmonic valvular regurgitation. There is no pulmonic valvular stenosis. GREAT VESSELS The aortic root is normal in size. The ascending aorta is normal in size. The pulmonary artery is normal. The IVC is likely normal in size but collapses <50% with inspiration. PERICARDIAL EFFUSION There is no pericardial effusion. There is no pleural effusion. <Conclusion> The estimated ejection fraction is 55%. Calculated EF on M mode is 56%. Transmitral Doppler flow pattern is normal for age. The right ventricle is moderate to severely dilated. RV Systolic function is mildly reduced ( TAPSE 1.47 cm). Right Ventricular septal motion is consistent with both pressure and volume overload. There is moderate to severe tricuspid regurgitation. RVSP is calculated at 72 mm Hg and consistent with moderate to severe pulmonary HTN.
--- NOTE | 2018-01-04 15:04 | US ---
Date of service: 01/04/2018 PROCEDURE: Bilateral lower extremity venous duplex Doppler. HISTORY: Rule out DVT COMPARISON: None available. TECHNIQUE: Bilateral common femoral, superficial femoral, popliteal and posterior tibial veins were evaluated. Flow was assessed with color Doppler, compressibility, assessment of phasic flow and augmentation response. FINDINGS: COMMON FEMORAL VEIN: Right CFV: Unremarkable. Left CFV: Unremarkable. SUPERFICIAL FEMORAL VEIN: Right SFV: Unremarkable. Left SFV: Unremarkable. POPLITEAL VEIN: Right Popliteal: Unremarkable. Left Popliteal: Unremarkable. POSTERIOR TIBIAL VEIN: Right PTV: Unremarkable. Left PTV: Unremarkable. OTHER FINDINGS: None. IMPRESSION: No evidence of deep venous thrombosis.
[2018-01-04 17:07] LABS: IRON 20 ug/dL (37-170)
[2018-01-04 17:17] LABS: % IRON SATURATION 5 % (20-55); TOTAL IRON BINDING CAPACITY 419 ug/dL (250-450)
--- NOTE | 2018-01-04 22:32 | CARD ---
APPROVED REPORT Date of service: 01/04/2018 EKG Measurement Heart [id number] <Conclusion> Normal sinus rhythm Right ventricular hypertrophy with repolarization abnormality Nonspecific T wave abnormality Abnormal ECG
--- NOTE | 2018-01-05 02:05 | PN ---
DATE: 01/04/2018 patient is seen and evaluated at the bedside. Past medical, surgical, family and social history reviewed as noted in H and P. 22-year-old female was seen in family practice clinic and noted to be dyspneic on exertion and associated with oxygen desaturation, was sent to emergency room for further evaluation. HISTORY OF PRESENT ILLNESS: Ms. Padron is a 22-year-old female,non smoker,nonEtOH user. Denies recreational drug use presented to clinic complaining of dyspnea more so on mild to moderate exertion, worsening over the last 2-3 months. The patient reports that she becomes dyspneic on moderate exertion and that has progressed to mild exertion associated with palpitations, discomfort in the chest, also complaining of headache. She is unable to work in [employer] because of her activity being limited by dyspnea. Also reportedly had an episode of syncope while on the street. The patient was evaluated at the [facility] and was discharged with no further recommendation. PAST MEDICAL HISTORY: Negative for asthma, chronic obstructive pulmonary disease, diabetes, hypertension, hyperlipidemia. Denies swelling of her extremities. No cramps. She does not use any oral contraceptives. No trauma. No travel history outside the [facility]. PAST SURGICAL HISTORY: Noncontributory. FAMILY HISTORY: Negative for deep venous thrombosis, pulmonary embolism, premature miscarriage or . REVIEW OF SYSTEMS: Dyspnea on mild to moderate exertion, progressively worsening. No swelling of the lower extremities. Denies cough, hemoptysis. Palpitation associated with exertion, bilateral diffuse headache not associated withnausea,photophobia. PHYSICAL EXAMINATION: GENERAL: A thin well-built female, oriented to name, place and time. No distress noted. Able to sleep without discomfort. VITAL SIGNS: Temperature 98.4, heart rate 78, respiratory rate 15-21 thoracoabdominal, blood pressure 99/63 to 103/56, oxygen saturation 98% on room air. Her intake and output to be recorded. Weight 123 pounds. HEAD, EYES, EARS, NOSE AND THROAT: Pupils are reactive. Conjunctivae pink. Sclerae white. NECK: Supple. Trachea is central. CHEST: Bilateral breath sounds clear to auscultation. HEART: Rhythm regular. S1, S2 normal intensity. No S3, S4 or gallop. No audible murmur. ABDOMEN: Bowel sounds are present, soft. Liver and spleen not pulsatile. EXTREMITIES: Without clubbing, cyanosis or edema. No palpable cord. Dorsalis pedis palpable, equal in intensity. No central or peripheral cyanosis. NEUROLOGIC: No cranial nerve deficit. No motor deficit. No sensory impairment. Deep tendon reflex 2+. No cerebellar insufficiency. CURRENT MEDICATIONS: Lovenox 40 mg subcu daily. LABORATORY DATA: WBC 10.7, hemoglobin 11.6, hematocrit 36.2, platelet count: 411, neutrophils 48.5, lymphocytes 40.2, monocytes 9. PT 14.1, INR1.3, PTT 35, D-dimer 2102. ABG; pH of 7.48, pCO2 24, pO2 60, bicarb 21.6 on room air consistent with respiratory alkalosis, hypoxemia with wide A-a gradient. SMA-7; sodium 142, potassium 3.9, chloride 110, CO2 21, blood urea nitrogen 13, creatinine 0.7. Random glucose 79, calcium 9.1, total bilirubin 0.6, AST 24, ALT 29, alkaline phosphatase 80. Troponin less than 0.0120. ProBNP 1450, total protein 7.5, albumin 4, A/G ratio 1.1. TSH 4.6. Urinalysis negative. Microbiology, none reported. Chest x-ray, prominent pulmonary artery, cardiomediastinal silhouette, otherwise within normal limits, no pleural effusion, no pneumonia, attenuation of the peripheral pulmonary artery. Electrocardiogram, normal sinus rhythm,biatrial enlargement, right axis deviation, incomplete right bundle branch block, right ventricular hypertrophy with nonspecific ST-T changes. Echocardiogram, estimated EF 55%, right ventricle is moderate to severely dilated, RV systolic function is mildly reduced, right ventricular septal motion is consistent with both pressure and volume overload, moderate to severe tricuspid regurgitation, RVSP calculated at 72 mm and consistent with moderate to severe pulmonary hypertension, the interatrial septum is intact with no evidence for atrial septal defect. There is no evidence of ventricular septal defect. Chest CT with contrast shows no large central or segmental pulmonary embolus, no focal consolidation, no pleural effusion, no pneumothorax. IMPRESSION: 22-year-old female,non smoker, non ethyl alcohol user. No recreational drug use. Not on oral contraceptives, noted taking any anorexic agents, no history of recent trauma, presenting with dyspnea since 3 months, more on moderate exertion, currently progressive to mild to moderate exertion associated with palpitation and a recent syncopal episode. CT chest with contrast shows no pulmonary embolism. Echocardiogram shows moderate to severe pulmonary hypertension with right ventricular hypertrophy significant tricuspid regurgitation consistent with pulmonary artery hypertension, etiology unclear. No clear evidence of left heart disease. No significant lung disease. Denies using anorexic agents or similar narcotic abuse. The patient has no sign or symptoms suggesting systemic disorders such as sarcoidosis, lymphangioleiomyomatosis, histiocytosis., likely pulmonary arterial hypertension idiopathic;clss 2 to 3. however, chronic thromboembolic disease needs to be ruled out. No family history suggestive of hypercoagulable state. PLAN: To follow iron and iron saturation level. Collagen vascular disease screening with BUSTER, rheumatoid factor, ANCA, and scleroderma 70, centromere and O[employer] antibodies. HIV testing to rule out the possibility as a cause for pulmonary hypertension, so also we will obtain hepatitis B and C serology. though no evidence of portal hypertension Chest x-ray and EKG are consistent with right ventricular hypertrophy, strain, right axis deviation and increased P-wave amplitude consistent with pulmonic pattern.. Echocardiogram suggest RV dilatation, RV thickening with tricuspid regurgitation and pulmonary hypertension . We will obtain a V/Q scan to rule out any thromboembolic events. The patient may benefit from right heart catheterization to assess pulmonary hypertension, and response to vasodilator therapy. including calcium channel blockers and/or PDEF or prostacyclin derivatives. We will hold until right heart catheterization is completed to avoid systemic hypotension and assessment of the response to the dilator therapy.. We will also schedule for PFTs to assess any ongoing lung pathology though clinically less likely. Continue oxygen 2 liters nasal cannula, 2 gm low-sodium diet, head of bed 30 degrees up, DVT prophylaxis. We will discuss with cardiology and pulmonary to see warfarin would be of any benefit, as thromboemboloic events are associated with pulmonary hypertension.. Munir Hair MD [facility]
[2018-01-05 04:52] LABS: HEMOGLOBIN 11.3 g/dL (12.0-16.0); MEAN CELL VOLUME 71.2 fl (81.0-99.0); MEAN CORPUSCULAR HEMOGLOBIN 21.9 pg (27.0-31.0); MEAN CORPUSCULAR HGB CONC 30.8 g/dL (33.0-37.0); RBC 5.17 Mil/uL (3.80-5.20); RED CELL DISTRIBUTION WIDTH 17.6 % (11.5-14.5); WHITE BLOOD COUNT 11.2 K/uL (4.8-10.8)
[2018-01-05 04:59] LABS: BLOOD UREA NITROGEN 13 mg/dl (7-17); CALCIUM 9.3 mg/dL (8.4-10.2); GFR NON-AFRICAN AMERICAN > 60
[2018-01-05 08:22] LABS: HEPATITIS B SURFACE AG Negative (NEGATIVE)
[2018-01-05 08:28] LABS: HEPATITIS B CORE AB NEGATIVE (NEGATIVE)
[2018-01-05 08:40] LABS: HEPATITIS C ANTIBODY NEGATIVE (NEGATIVE)
--- NOTE | 2018-01-05 08:57 | CP.PCM.PN ---
<GerardoPriyank - Last Filed: 01/05/18 09:46> Subjective - Date & Time of Evaluation Date of Evaluation: 01/05/18 Time of Evaluation: 09:30 - Subjective Subjective: Seen at bedside in not aucte distress. No events overnight. Tolerating PO. No acute changes in urination or stools. States she feels "fine". Afebrile. Objective - Vital Signs/Intake and Output Vital Signs (last 24 hours): Temp Pulse Resp BP Pulse Ox 98.0 F 86 22 88/56 L 96 01/05/18 04:00 01/05/18 06:00 01/05/18 06:00 01/05/18 06:00 01/05/18 06:00 Intake and Output: 01/05/18 01/05/18 06:59 18:59 Intake Total 265 Output Total 400 Balance -135 - Medications Medications: Current Medications Ferrous Sulfate (Feosol) 325 mg PO DAILY [facility] Multivitamins/Minerals (Therapeutic-M Tab) 1 tab PO DAILY [facility] - Labs Labs: 01/05/18 04:41 01/05/18 04:41 PT 14.1 Seconds (9.8-13.1) H 01/03/18 16:44 INR 1.3 01/03/18 16:44 APTT 35.0 Seconds (25.6-37.1) 01/03/18 16:44 - Constitutional Appears: Non-toxic, No Acute Distress - Eye Exam Eye Exam: EOMI, PERRL. absent: Normal appearance (R/ptosis) - ENT Exam ENT Exam: Mucous Membranes Moist - Neck Exam Neck Exam: Full ROM - Respiratory Exam Respiratory Exam: Clear to Ausculation Bilateral, NORMAL BREATHING PATTERN - Cardiovascular Exam Cardiovascular Exam: REGULAR RHYTHM, +S1, +S2. absent: Gallop - GI/Abdominal Exam GI & Abdominal Exam: Soft, Normal Bowel Sounds. absent: Distended, Guarding, Tenderness - Extremities Exam Extremities Exam: Full ROM, Normal Capillary Refill, Normal Inspection. absent: Calf Tenderness, Pedal Edema - Neurological Exam Neurological Exam: Alert, Awake, Oriented x3 - Psychiatric Exam Psychiatric exam: Normal Affect, Normal Mood - Skin Skin Exam: Normal Color, Warm Assessment and Plan - Assessment and Plan (Free Text) Assessment: 22 y/o admitted for recent onset of SOB on exertion Hypoxemia with Dyspnea and palpitations on exertion Stable Unclear cause at this time R/O PE no resp distress at rest CT angio x2(12/31/17 and 01/03/18) neg for PE DDimers elevated EKG shows RVH Cardiology consulted: Dr Goncalves, Echo reviewed and positive for pulm HTN, and increased r/heart pressures. As per Cardio suspicious for PE and rec Pulm Consult Pulmonology consult placed: Dr Cardona. F/U recs Hypercoag workup ordered. F/U LE US neg for DVT VQ scan ordered to r/o PE Radiologist re-reviewed both CT angio and there is no obvious PE present on any study. Technique was appropriate. Iron deficiency Started on iron PO RVH on Echocardiogram F/U Cardio recs Pulmonary hypertension on Echocardiogram F/U Cardio recs <Mayra Delacruz - Last Filed: 01/05/18 14:36> Objective - Vital Signs/Intake and Output Vital Signs (last 24 hours): Temp Pulse Resp BP Pulse Ox 98 F 78 20 89/56 L 98 01/05/18 12:00 01/05/18 12:00 01/05/18 12:00 01/05/18 12:00 01/05/18 12:00 Intake and Output: 01/05/18 01/05/18 06:59 18:59 Intake Total 265 0 Output Total 400 400 Balance -135 -400 - Medications Medications: Current Medications Ferrous Sulfate (Feosol) 325 mg PO DAILY [facility] Last Admin: 01/05/18 12:20 Dose: 325 mg Multivitamins/Minerals (Therapeutic-M Tab) 1 tab PO DAILY [facility] Last Admin: 01/05/18 12:20 Dose: 1 tab - Labs Labs: 01/05/18 04:41 01/05/18 04:41 PT 14.1 Seconds (9.8-13.1) H 01/03/18 16:44 INR 1.3 01/03/18 16:44 APTT 35.0 Seconds (25.6-37.1) 01/03/18 16:44 Attending/Attestation - Attestation I have personally seen and examined this patient.: Yes I have fully participated in the care of the patient.: Yes I have reviewed all pertinent clinical information, including history, physical exam and plan: Yes Notes (Text): Will consult Interventional Cardiology - Dr Barry for possible Right Heart Catheterization
[2018-01-05] MEDS ORDERED: Multivitamin With Minerals Tab PO SCH (09:00)
[2018-01-05] MEDS: Multivitamin With Minerals Tab PO SCH (12:20)
--- NOTE | 2018-01-05 23:02 | CON ---
DATE: 01/05/2018 HISTORY OF PRESENT ILLNESS: Ms. Padron is a 22-year-old female who was referred for pulmonary consultation by Dr. Delacruz. She was admitted from the [facility] because of exertional dyspnea for the past several months. She indicates that symptoms have worsened over the past several months. She denies dyspnea at rest, but indicates that when she starts to walk around over the past 2 to 3 months, she has become more short of breath and unable to function. She denies chest pains or palpitations. Her past medical history is unremarkable, including drug use, alcohol use, or cigarette use. She does not use control pills, and family history is nonrevealing. PHYSICAL EXAMINATION: GENERAL: The patient is alert, oriented, appears to be comfortable at present, in no apparent distress. VITAL SIGNS: Remarkable for blood pressure of 96/65, pulse of 70, respiratory rate is 20 per minute. She is afebrile. O2 sat is 100% on room air. SKIN: Shows fair turgor. Pupils are equal and reactive to light and accommodation. JVP flat. LUNGS: Clear. HEART: Regular. No murmurs or gallop. ABDOMEN: Soft, nontender. No organomegaly. EXTREMITIES: Shows no edema, clubbing, or cyanosis. CENTRAL NERVOUS SYSTEM: Grossly intact. LABORATORY DATA: Remarkable for WBC of 11.2, hemoglobin 11.3, platelet count 419,000. Arterial blood gas: PH 7.48, pCO2 of 24, pO2 of 60. O2 saturation 94.1, this is on room air. Sodium 140, potassium 4.2, BUN 13, creatinine 0.7, AST 24, ALT 29. ProBNP 1450. Thyroid function normal. Chest x-ray, no active disease. CT scan of the chest, no large central or segmental pulmonary embolus, elevation of right hemidiaphragm. Venous Doppler of lower extremities, no evidence of deep venous thrombosis. Echocardiogram is remarkable for left ventricular ejection fraction of 55%. Right ventricle moderately to severely dilated. Systolic function is mildly reduced. Right ventricular septum motion is consistent with both pressure and volume overload. There is moderate to severe tricuspid regurgitation. RV systolic pressure is calculated as 72 mmHg, consistent with moderate to severe pulmonary hypertension. IMPRESSION: A young female with exertional dyspnea and echocardiogram finding of pulmonary hypertension, question is etiology of pulmonary hypertension. It could be primary pulmonary hypertension. It could also be secondary to some undiagnosed pathology at present. One has to rule out connective tissue disease, pulmonary sarcoidosis, some form of interstitial lung disease. One also has to consider interventional cardiology evaluation for possible cardiac catheterization to evaluate right heart pressures. Presently, oxygen is advised. We will offer intravenous steroids empirically. We will continue to follow with you. Case was discussed at length with Dr. Delacruz. Alex Healy MD
--- NOTE | 2018-01-05 23:47 | CP.PCM.CON ---
History of Present Illness - History of Present Illness History of Present Illness: consult for RHCx 22-year-old female presented with complains of dyspnea on exertion and palpitations symptoms of dyspnea on exertion started about a month prior to presentation I was called for evaluation of pulmonary hypertension which was noted on the echocardiogram EKG showed LVH CAT scan showed a dilated pulmonary artery with no evidence of PE a VQ scan was done which showed no evidence of PE. Review of Systems - Review of Systems Systems not reviewed;Unavailable: Acuity of Condition - Constitutional Constitutional: As Per HPI - EENT Eyes: As Per HPI Ears: As Per HPI Nose/Mouth/Throat: As Per HPI - Breasts Breasts: As Per HPI - Cardiovascular Cardiovascular: As Per HPI - Respiratory Respiratory: As Per HPI - Gastrointestinal Gastrointestinal: As Per HPI - Genitourinary Genitourinary: As Per HPI - Reproductive: Female Reproductive:Female: As Per HPI - Menstruation Menstruation: As Per HPI - Musculoskeletal Musculoskeletal: As Per HPI - Integumentary Integumentary: As Per HPI - Neurological Neurological: As Per HPI - Psychiatric Psychiatric: As Per HPI - Endocrine Endocrine: As Per HPI - Hematologic/Lymphatic Hematologic: As Per HPI Past Patient History - Infectious Disease Hx of Infectious Diseases: None - Past Medical History & Family History Past Medical History?: No - Past Social History Smoking Status: Never Smoked - CARDIAC Hx Cardiac Disorders: No - PULMONARY Hx Respiratory Disorders: No - NEUROLOGICAL Hx Syncope: Yes - HEENT Hx HEENT Problems: No - RENAL Hx Chronic Kidney Disease: No - ENDOCRINE/METABOLIC Hx Endocrine Disorders: No - HEMATOLOGICAL/ONCOLOGICAL Hx Blood Disorders: No - INTEGUMENTARY Hx Dermatological Problems: No - MUSCULOSKELETAL/RHEUMATOLOGICAL Hx Falls: Yes - GASTROINTESTINAL Hx Gastrointestinal Disorders: No - GENITOURINARY/GYNECOLOGICAL Hx Genitourinary Disorders: No - PSYCHIATRIC Hx Substance Use: No - SURGICAL HISTORY Hx Surgeries: No - ANESTHESIA Hx Anesthesia: No Hx Anesthesia Reactions: No Meds Home Medications: Home Medication List Medication Instructions Recorded Confirmed Type Apixaban [Eliquis] 2.5 mg PO BID #60 tab 01/08/18 Rx Allergies/Adverse Reactions: Allergies Allergy/AdvReac Type Severity Reaction Status Date / Time No Known Allergies Allergy Verified 12/31/17 15:36 - Medications Medications: Current Medications Ferrous Sulfate (Feosol) 325 mg PO DAILY [facility] Last Admin: 01/05/18 12:20 Dose: 325 mg Multivitamins/Minerals (Therapeutic-M Tab) 1 tab PO DAILY [facility] Last Admin: 01/05/18 12:20 Dose: 1 tab Physical Exam - Constitutional Appears: Well - Head Exam Head Exam: ATRAUMATIC, NORMAL INSPECTION, NORMOCEPHALIC - Eye Exam Eye Exam: EOMI, Normal appearance, PERRL Pupil Exam: NORMAL ACCOMODATION, PERRL - ENT Exam ENT Exam: Mucous Membranes Moist, Normal Exam - Neck Exam Neck exam: Positive for: Normal Inspection - Respiratory Exam Respiratory Exam: Clear to Auscultation Bilateral, NORMAL BREATHING PATTERN - Cardiovascular Exam Cardiovascular Exam: REGULAR RHYTHM, Systolic Murmur - GI/Abdominal Exam GI & Abdominal Exam: Normal Bowel Sounds, Soft. absent: Tenderness - Extremities Exam Extremities exam: Positive for: normal inspection - Back Exam Back exam: NORMAL INSPECTION - Neurological Exam Neurological exam: Alert, CN II-XII Intact, Normal Gait, Oriented x3, Reflexes Normal - Psychiatric Exam Psychiatric exam: Normal Affect, Normal Mood - Skin Skin Exam: Dry, Intact, Normal Color, Warm Results - Vital Signs Recent Vital Signs: Last Vital Signs Temp 98.6 F 01/05/18 16:00 Pulse 106 H 01/05/18 18:00 Resp 22 01/05/18 18:00 BP 93/64 L 01/05/18 18:00 Pulse Ox 97 01/05/18 18:00 - Labs Result Diagrams: 01/08/18 04:30 01/08/18 04:30 Labs: Laboratory Results - last 24 hr 01/04/18 01/04/18 01/05/18 13:58 13:58 04:41 WBC 11.2 H RBC 5.17 Hgb 11.3 L Hct 36.8 MCV 71.2 L MCH 21.9 L MCHC 30.8 L RDW 17.6 H Plt Count 419 H Sodium Potassium Chloride Carbon Dioxide Anion Gap BUN Creatinine Est GFR ( Amer) Est GFR (Non-Af Amer) Random Glucose Calcium Hep Bs Antigen Negative Hep B Core IgM Ab Negative Hepatitis C Antibody Negative HIV 1&2 Antibody Screen Negative 01/05/18 04:41 WBC RBC Hgb Hct MCV MCH MCHC RDW Plt Count Sodium 140 Potassium 4.2 Chloride 107 Carbon Dioxide 23 Anion Gap 14 BUN 13 Creatinine 0.7 Est GFR ( Amer) > 60 Est GFR (Non-Af Amer) > 60 Random Glucose 91 Calcium 9.3 Hep Bs Antigen Hep B Core IgM Ab Hepatitis C Antibody HIV 1&2 Antibody Screen Assessment & Plan (1) Pulmonary HTN Assessment and Plan: rhc immune workup evaluation for pda Status: Acute Priority: High (2) Dyspnea Status: Acute Priority: High (3) Palpitations Status: Acute Priority: High
--- NOTE | 2018-01-06 01:35 | PN ---
DATE: 01/05/2018 CRITICAL CARE PROGRESS NOTE LOCATION: The patient in ICU, bed 431. TIME SPENT: 35 minutes. The patient is seen and evaluated at the bedside. Past medical, surgical, family, and social history reviewed. A 22-year-old female, nonsmoker, non-EtOH user, admitted with exertional dyspnea, fatigue, palpitation, status post syncopal episode. CT chest negative for pulmonary embolism. Venous Doppler negative for deep venous thrombosis. Echocardiogram consistent with severe pulmonary hypertension with right ventricular wall hypertrophy and tricuspid regurgitation. Overnight normotensive, afebrile, telemetry sinus rhythm. This morning alert and awake, follows commands appropriate. No distress noted at rest. Denies shortness of breath at rest. No cough, chest pain, or palpitation. No abdominal discomfort. No diarrhea, dysuria, or hematuria. No swelling of lower extremities. PHYSICAL EXAMINATION: VITAL SIGNS: Temperature 97.9, heart rate 71 to 90 regular, blood pressure 96/55, mean arterial pressure 68, respiratory rate 21, oxygen saturation 100% on oxygen supplement 2 liters nasal cannula. Intake 1125, output of 400, positive balance 725. Weight 122 pounds. EXAMINATION OF HEAD, EYES, EARS, NOSE, AND THROAT: Pupils are reactive. Conjunctivae pink. Sclerae are white. NECK: Supple. Trachea central. CHEST: Bilateral breath sounds. Clear to auscultation. HEART: Rhythm regular. S1, S2 normal intensity. No S3, S4 gallop. No audible murmur. ABDOMEN: Bowel sounds are present. Soft. Liver and spleen are not palpable. Bladder not distended. EXTREMITIES: No clubbing, cyanosis, or edema. NEUROLOGIC: Nonfocal. CURRENT MEDICATIONS: Iron tablet 325 mg p.o. daily, multivitamin with minerals 1 tablet p.o. daily. LABORATORY DATA: WBC 11.2, hemoglobin 11.3, hematocrit 36.8, MCV 71.2, MCH 21.9, platelet count 490. PT 14.1, INR 1.3, PTT 35. D-dimer 2102. SMA-7, sodium 140, potassium 4.2, chloride 107, CO2 of 23, BUN 13, creatinine of 0.7, random glucose 91, calcium 9.3, iron 20, iron saturation 5, TIBC 419, homocystine 12.8. TSH of 4.6, albumin 5.1. Normal LFT. Microbiology, none reported. Ultrasound extremities, no deep venous thrombosis bilaterally. EKG, normal sinus rhythm, right ventricular hypertrophy with repolarization abnormality. Nonspecific T-wave abnormality. P-wave consistent with pulmonary _pattern_ CT chest, no large central or segmental pulmonary embolus. No focal consolidation/pleural effusions/pneumothorax, elevation of the right hemidiaphragm. Echocardiogram: Left ventricle normal in size, normal LV wall thickness. LV systolic function, normal. Estimated EF 55%. No wall motion abnormality. No left ventricular thrombus. No ventricular septal defect. No left ventricular aneurysm. No mass noted in the left ventricle. Right ventricle is moderate to severely dilated. Normal right ventricular wall thickness, systolic function is mildly reduced. Right ventricular septal wall motion is consistent with both pressure and volume overload. The left atrium is normal. Right atrium is mildly dilated. The intra-atrial septum is intact with no evidence for an atrial septal defect. No aortic regurgitation. No aortic valve stenosis. No aortic valve vegetation. Mitral valve normal in structure. No mitral valve stenosis. No mitral valve regurgitation. Tricuspid valve is normal in structure. Moderate to severe tricuspid regurgitation. Calculated RVSP of 72, consistent with severe pulmonary hypertension. Tricuspid valve prolapse vegetation. No pulmonic valve regurgitation. The ascending aorta is normal. Pulmonary valve__ normal. No pericardial effusion. IMPRESSION AND PLAN: 1. Neurologic: Status post syncopal episode x1 in the past, likely related to pulmonary artery hypertension. EKG shows right atrial enlargement, right ventricular hypertrophy, tricuspid regurgitation with severe pulmonary hypertension. Cardiology evaluation in progress. May need right heart catheterization to assess the degree of pulmonary hypertension and the response to vasodilator treatment. 2. Pulmonary: Pulmonary arterial hypertension, likely idiopathic, thromboembolic events to be ruled out. V/Q scan pending. We will discuss with Pulmonary/Cardiology to add Warfarin if indicated as thromboembolic events are associated with pulmonary artery hypertension. 3. Cardiac: Associated with palpitation, syncopal episode, pulmonary artery hypertension. No evidence of left heart disease, normal left ventricular function and no wall motion abnormality based on echocardiogram pending cardiac catheterization. 4. Gastrointestinal: No evidence of portal hypertension. Normal liver function tests. Follow hepatitis B and C serology. 5. Renal. No electrolyte abnormalities. Normal renal function. 6. Infectious Disease. No acute issues. 7. Hematology. Microcytic hyperchromic anemia, likely related to loss of iron associated with menstrual cycle. We will add iron and multivitamin tablet. especially in the setting of pulmonary hypertension and hypoxemia. 8. Endocrinology. No evidence of thyroid disease. No history of diabetes. Maintain blood sugar in the normal range. Munir Hair MD [facility]
[2018-01-06 05:32] LABS: HEMOGLOBIN 11.8 g/dL (12.0-16.0); MEAN CELL VOLUME 71.8 fl (81.0-99.0); MEAN CORPUSCULAR HEMOGLOBIN 22.2 pg (27.0-31.0); RBC 5.3 Mil/uL (3.80-5.20); RED CELL DISTRIBUTION WIDTH 18.1 % (11.5-14.5); WHITE BLOOD COUNT 12.8 K/uL (4.8-10.8)
[2018-01-06 05:41] LABS: BLOOD UREA NITROGEN 10 mg/dl (7-17); CALCIUM 9.3 mg/dL (8.4-10.2); GFR NON-AFRICAN AMERICAN > 60
--- NOTE | 2018-01-06 09:22 | CP.PCM.PN ---
Subjective - Date & Time of Evaluation Date of Evaluation: 01/06/18 Time of Evaluation: 09:22 - Subjective Subjective: NO DYSPNEA AT REST NO NEW CLINICAL FINDINGS CARDIAC NOTE REVIEWED IMP-PULMONARY HTN--?ETIOLOGY PLAN-FOR V/Q SCAN TO R/O CHRONIC PULM EMBOLI SYNDROME IF NO CARDIAC INTERVENTION IS PLABNNED,THE PT MAY CONTINUE OUT PT WORKUP IF V/Q SCAN IS NON-REVEALING Objective - Vital Signs/Intake and Output Vital Signs (last 24 hours): Temp Pulse Resp BP Pulse Ox 98 F 79 17 92/73 L 94 L 01/06/18 04:00 01/06/18 08:00 01/06/18 08:00 01/06/18 08:00 01/06/18 08:00 - Medications Medications: Current Medications Ferrous Sulfate (Feosol) 325 mg PO DAILY [facility] Last Admin: 01/05/18 12:20 Dose: 325 mg Multivitamins/Minerals (Therapeutic-M Tab) 1 tab PO DAILY [facility] Last Admin: 01/05/18 12:20 Dose: 1 tab - Labs Labs: 01/06/18 04:50 01/06/18 04:50 PT 14.1 Seconds (9.8-13.1) H 01/03/18 16:44 INR 1.3 01/03/18 16:44 APTT 35.0 Seconds (25.6-37.1) 01/03/18 16:44
[2018-01-06] MEDS: Multivitamin With Minerals Tab PO SCH (11:41)
--- NOTE | 2018-01-06 12:12 | RAD ---
Date of service: 01/06/2018 HISTORY: Shortness of breath. COMPARISON: Chest CT 01/03/2018 and echocardiogram 12/31/2017. FINDINGS: LUNGS: No active pulmonary disease. PLEURA: No significant pleural effusion identified, no pneumothorax apparent. CARDIOVASCULAR: Cardiac size remains normal however the main pulmonary artery segment appears dilated, likely related to pulmonary artery hypertension as diagnosed by echocardiogram 01/04/2018. Dilated pulmonary artery also appreciated on prior chest CT 01/03/2018 as well OSSEOUS STRUCTURES: No significant abnormalities. VISUALIZED UPPER ABDOMEN: Normal. OTHER FINDINGS: None. IMPRESSION: No acute pulmonary disease bilaterally. Dilated main pulmonary segment is suggested based on convex superior structure superior to the left heart border in this patient with known diagnosis of pulmonary artery hypertension.
--- NOTE | 2018-01-06 16:18 | CP.PCM.PN ---
<Sarthak Mora - Last Filed: 01/06/18 16:32> Subjective - Date & Time of Evaluation Date of Evaluation: 01/06/18 Time of Evaluation: 16:15 - Subjective Subjective: 22 YO F seen resting comfortably in bed. Denies any chest pain, palpitation or SOB while resting currently. Awaiting to be taken for VQ scan -Cath scheduled for AM Objective - Vital Signs/Intake and Output Vital Signs (last 24 hours): Temp Pulse Resp BP Pulse Ox 98.3 F 103 H 25 H 95/63 L 96 01/06/18 15:57 01/06/18 15:57 01/06/18 15:57 01/06/18 14:00 01/06/18 15:57 Intake and Output: 01/06/18 01/06/18 06:59 18:59 Intake Total 120 Output Total 250 Balance -130 - Medications Medications: Current Medications Ferrous Sulfate (Feosol) 325 mg PO DAILY [facility] Last Admin: 01/06/18 11:41 Dose: 325 mg Multivitamins/Minerals (Therapeutic-M Tab) 1 tab PO DAILY [facility] Last Admin: 01/06/18 11:41 Dose: 1 tab - Labs Labs: 01/06/18 04:50 01/06/18 04:50 PT 14.1 Seconds (9.8-13.1) H 01/03/18 16:44 INR 1.3 01/03/18 16:44 APTT 35.0 Seconds (25.6-37.1) 01/03/18 16:44 - Constitutional Appears: Non-toxic, No Acute Distress - Head Exam Head Exam: NORMAL INSPECTION - Eye Exam Eye Exam: Normal appearance - ENT Exam ENT Exam: Mucous Membranes Moist, Normal Exam - Respiratory Exam Respiratory Exam: Clear to Ausculation Bilateral, NORMAL BREATHING PATTERN. a bsent: Rales, Rhonchi - Cardiovascular Exam Cardiovascular Exam: REGULAR RHYTHM, +S1, +S2 - GI/Abdominal Exam GI & Abdominal Exam: Soft, Normal Bowel Sounds - Extremities Exam Extremities Exam: Normal Capillary Refill - Neurological Exam Neurological Exam: Alert, Awake, CN II-XII Intact, Oriented x3 - Skin Skin Exam: Normal Color, Warm Assessment and Plan - Assessment and Plan (Free Text) Assessment: 22 y/o admitted for recent onset of SOB on exertion Hypoxemia with Dyspnea and palpitations on exertion Stable Unclear cause at this time CT angio x2(12/31/17 and 01/03/18) neg for PE no resp distress at rest Dimers elevated EKG shows RVH Cardiology consulted: Dr Goncalves, Echo reviewed and positive for pulm HTN, and increased r/heart pressures. As per Cardio suspicious for PE - Pulmonary consult appreciated Hypercoag workup ordered. F/U LE US neg for DVT Chest X ray from today (01/06/18) No active disease Dilated pulmonary segment. Consistent with pulm HTN VQ scan ordered to r/o PE: Follow up with results Radiologist re-reviewed both CT angio and there is no obvious PE present on any study. Technique was appropriate. Patient scheduled for Cath tomorrow with Dr. Barry Iron deficiency Started on iron PO Pulmonary hypertension on Echocardiogram F/U Cardio recs Cath scheduled for AM NPO overnight <Mayra Delacruz - Last Filed: 01/06/18 18:02> Objective - Vital Signs/Intake and Output Vital Signs (last 24 hours): Temp Pulse Resp BP Pulse Ox 98.3 F 103 H 25 H 95/63 L 96 01/06/18 15:57 01/06/18 15:57 01/06/18 15:57 01/06/18 14:00 01/06/18 15:57 Intake and Output: 01/06/18 01/06/18 06:59 18:59 Intake Total 120 Output Total 1750 Balance -1630 - Medications Medications: Current Medications Ferrous Sulfate (Feosol) 325 mg PO DAILY [facility] Last Admin: 01/06/18 11:41 Dose: 325 mg Multivitamins/Minerals (Therapeutic-M Tab) 1 tab PO DAILY [facility] Last Admin: 01/06/18 11:41 Dose: 1 tab - Labs Labs: 01/06/18 04:50 01/06/18 04:50 PT 14.1 Seconds (9.8-13.1) H 01/03/18 16:44 INR 1.3 01/03/18 16:44 APTT 35.0 Seconds (25.6-37.1) 01/03/18 16:44 Attending/Attestation - Attestation I have personally seen and examined this patient.: Yes I have fully participated in the care of the patient.: Yes I have reviewed all pertinent clinical information, including history, physical exam and plan: Yes Notes (Text): 10/01/18 18:[address] Goncalves and Dr Camilo - plan for Right hEart catheterization
--- NOTE | 2018-01-06 21:47 | PN ---
DATE: 01/06/2018 LOCATION: The patient in ICU, bed 431. TIME SPENT: 35 minutes. The patient is seen and evaluated at the bedside. Past medical, surgical, family, social history reviewed. SUBJECTIVE: A 22-year-old female nonsmoker, non-EtOH user, admitted with exertional dyspnea, fatigue, palpitation status post syncopal episode with sustained abrasion on the knee. CT chest negative for pulmonary embolism but for pulmonary artery dilatation. Venous Doppler negative for deep venous thrombosis. Echocardiogram consistent with severe pulmonary hypertension with right ventricular wall hypertrophy, tricuspid regurgitation. Overnight, normotensive, afebrile. Telemetry sinus rhythm. No arrhythmias noted. This morning, alert, awake, follows commands appropriate. No distress noted at rest. Complaining of dyspnea on exertion only. No further palpitation. Denies cough, chest pain. No abdominal discomfort. No swelling of the lower extremities. PHYSICAL EXAMINATION: VITAL SIGNS: Temperature 98, heart rate 77-79 regular, saturating 94% on room air, respiratory rate 17-19 thoracoabdominal. HEAD, EYES, EARS, NOSE AND THROAT: Pupils are reactive. Conjunctivae pink. Sclerae are white. NECK: Supple. Trachea central. CHEST: Bilateral breath sounds clear to auscultation. HEART: Rhythm regular. S1, S2 normal intensity. No S3, S4 gallop. No audible murmur. ABDOMEN: Bowel sounds are present. Soft. Liver and spleen not palpable. Bladder not distended. EXTREMITIES: Without clubbing, cyanosis or edema. NEUROLOGIC: Nonfocal. LABORATORY DATA: Urinalysis negative. SMA-7 sodium 139, potassium 4.1, chloride 107, CO2 19, blood urea nitrogen 10, creatinine 0.4, calcium 9.3, INR 20, TIBC of 419, percent iron saturation 5, homocystine 12.8. Serology; hepatitis B surface antigen negative, hepatitis B core IgM antibody negative, hepatitis C antibody negative. HIV-1 and 2 antibody screen negative. Microbiology, nasal smear MRSA not detected. Extremity ultrasound, negative DVT. IMPRESSION: 1. Neurologic: Status post syncopal episode x1 in the past, likely related to pulmonary artery hyper tension. EKG shows right atrial enlargement, right ventricular hypertrophy, tricuspid regurgitation with severe pulmonary hypertension, estimated by echo around 72 mm. Cardiology evaluation in progress. May need right heart catheterization to assess the degree of pulmonary hypertension and the response to vasodilator treatment likely to be done today. 2. Pulmonary: Pulmonary arterial hypertension, likely idiopathic, thromboembolic events to be ruled out, V/Q scan pending. Based on the V/Q scan consider adding Coumadin if needed to prevent further thromboembolic events. 3. Cardiac: Associated palpitations, status post syncopal episode, pulmonary artery hypertension. No evidence of left heart disease, normal left ventricular function and no wall motion abnormality based on echocardiogram. The patient awaiting for cardiac catheterization today. 4. Gastrointestinal: No evidence of portal hypertension. Normal liver function test. Hepatitis B and C serology negative. 5. Renal: No acute issues noted. 6. Infectious disease: No acute issues. Leukocytosis noted, probably reactive. We will closely monitor. 7. Hematology: Microcytic hypochromic anemia, likely related to loss of iron through the menstrual cycle. The patient currently on iron and multivitamin tablet. 8. Endocrinology: No evidence of thyroid disease. No history of diabetes. Maintain blood sugar in the normal range. Keep head of bed 30 degrees up. Follow cardiac catheter report, V/Q scan report, also followup rheumatology workup. Continue iron and the multivitamin tablet. Munir Hair MD
[2018-01-07 05:59] LABS: HEMOGLOBIN 11.8 g/dL (12.0-16.0); MEAN CELL VOLUME 72.1 fl (81.0-99.0); MEAN CORPUSCULAR HGB CONC 31.9 g/dL (33.0-37.0); RBC 5.11 Mil/uL (3.80-5.20); RED CELL DISTRIBUTION WIDTH 17.7 % (11.5-14.5)
[2018-01-07 06:47] LABS: BLOOD UREA NITROGEN 15 mg/dl (7-17); CALCIUM 9.2 mg/dL (8.4-10.2); GFR NON-AFRICAN AMERICAN > 60
[2018-01-07] MEDS: Multivitamin With Minerals Tab PO SCH (08:48)
--- NOTE | 2018-01-07 08:54 | CP.PCM.PN ---
Subjective - Date & Time of Evaluation Date of Evaluation: 01/07/18 Time of Evaluation: 08:54 - Subjective Subjective: MORE AWAKE AND RESPONSIVE TO VERBAL COMMANDS LESS DYSPNEIC Objective - Vital Signs/Intake and Output Vital Signs (last 24 hours): Temp Pulse Resp BP Pulse Ox 98.5 F 81 100 H 86/50 L 95 01/07/18 08:00 01/07/18 08:00 01/07/18 08:00 01/07/18 04:00 01/07/18 04:00 - Medications Medications: Current Medications Ferrous Sulfate (Feosol) 325 mg PO DAILY [facility] Last Admin: 01/07/18 08:48 Dose: Not Given Multivitamins/Minerals (Therapeutic-M Tab) 1 tab PO DAILY [facility] Last Admin: 01/07/18 08:48 Dose: Not Given - Labs Labs: 01/07/18 04:20 01/07/18 04:20 PT 14.1 Seconds (9.8-13.1) H 01/03/18 16:44 INR 1.3 01/03/18 16:44 APTT 35.0 Seconds (25.6-37.1) 01/03/18 16:44 - Constitutional Appears: Chronically Ill - Head Exam Head Exam: ATRAUMATIC, NORMAL INSPECTION, NORMOCEPHALIC - Eye Exam Eye Exam: EOMI, Normal appearance, PERRL Pupil Exam: NORMAL ACCOMODATION, PERRL - ENT Exam ENT Exam: Mucous Membranes Moist, Normal Exam - Neck Exam Neck Exam: Full ROM, Normal Inspection. absent: Lymphadenopathy - Respiratory Exam Respiratory Exam: Decreased Breath Sounds, Prolonged Expiratory Phase, Rales, NORMAL BREATHING PATTERN Additional comments: ON O2 SUPPLEMENT - Cardiovascular Exam Cardiovascular Exam: REGULAR RHYTHM, +S1, +S2. absent: Murmur - GI/Abdominal Exam GI & Abdominal Exam: Soft, Normal Bowel Sounds. absent: Tenderness - Rectal Exam Rectal Exam: NORMAL INSPECTION - Extremities Exam Extremities Exam: Full ROM, Normal Capillary Refill, Normal Inspection, Pedal Edema. absent: Joint Swelling - Back Exam Back Exam: NORMAL INSPECTION - Neurological Exam Neurological Exam: Alert, Awake, CN II-XII Intact - Psychiatric Exam Psychiatric exam: Normal Affect, Normal Mood - Skin Skin Exam: Dry, Intact, Normal Color, Warm Assessment and Plan - Assessment and Plan (Free Text) Assessment: ACUTE CHF SUPERIMPOSED PNEUMONIA Plan: CONTINUE CURRENT RX
--- NOTE | 2018-01-07 12:25 | CP.CCUPN ---
CCU Subjective - Physician Review Events Since Last Encounter (Free Text): 01/07/18 The patient was Seen/interviewed and examined by me at the bedside during ICU round, Medical records reviewed and Management issues were discussed and formulated with the house staff. Events reviewed Clinically improving, hemodynamically stable This morning she feels well Denies any chest pain, SOB or Palpitations Pt AAO x3 Comfortable, NAD Afebrile, NSR on the monitor Last 24H I&O 120/1750 Scheduled for transfer to [facility] for Cardiac Cath Pt's current status is discussed with pt CCU Objective - Vital Signs / Intake & Output Intake and Output (Last 8hrs): Intake & Output 01/06/18 01/07/18 01/07/18 22:59 06:59 14:59 Output Total 1500 Balance -1500 Output: Urine 1500 Urine, Voided 1500 - Physical Exam Head: Positive for: Atraumatic, Normocephalic Pupils: Positive for: PERRL Extroacular Muscles: Positive for: EOMI Conjunctiva: Positive for: Normal Ears: Positive for: Normal Mouth: Positive for: Moist Mucous Membranes Pharnyx: Positive for: Normal. Negative for: ERYTHEMA Nose (Internal): Positive for: Normal Inspection Neck: Positive for: Normal Range of Motion, Trachea Midline. Negative for: Meningeal Signs, MIDLINE TENDERNESS, Paraspinal Tenderness, JVD, Lymphadenopathy, Bruit, Other Respiratory/Chest: Positive for: Clear to Auscultation, Good Air Exchange. Negative for: Respiratory Distress, Accessory Muscle Use, Wheezes, Decreased Breath Sounds, Rales, Retracting, Rhonchi, Tender to Palpation Cardiovascular: Positive for: Regular Rate and Rhythm, Normal S1, S2, Peripheal Pulses Present. Negative for: Murmurs, Irregular Rhythm, Tachycardic, Bradycardic Abdomen: Positive for: Normal Bowel Sounds. Negative for: Tenderness, Distention, Peritoneal Signs Back: Negative for: Normal Inspection, CVA Tenderness Upper Extremity: Positive for: Normal Inspection. Negative for: Cyanosis, Edema Lower Extremity: Positive for: Normal Inspection. Negative for: Edema, CALF TENDERNESS Neurological: Positive for: GCS=15, CN II-XII Intact, Speech Normal, Motor Func Grossly Intact, Normal Sensory Function Psychiatric: Positive for: Alert, Oriented x 3. Negative for: Anxious, Agitated - Medications Active Medications: Active Medications Generic Name Dose Route Start Last Admin Trade Name Malena PRN Reason Stop Dose Admin Ferrous Sulfate 325 mg 01/05/18 09:00 01/07/18 08:48 Feosol PO Not Given DAILY [facility] Multivitamins/Minerals 1 tab 01/05/18 09:00 01/07/18 08:48 Therapeutic-M Tab PO Not Given DAILY [facility] - Patient Studies Lab Studies: Lab Studies 01/07/18 01/07/18 01/04/18 Range/Units 04:20 04:20 13:58 WBC 12.0 H (4.8-10.8) K/uL RBC 5.11 (3.80-5.20) Mil/uL Hgb 11.8 L (12.0-16.0) g/dL Hct 36.8 (34.0-47.0) % MCV 72.1 L (81.0-99.0) fl MCH 23.0 L (27.0-31.0) pg MCHC 31.9 L (33.0-37.0) g/dL RDW 17.7 H (11.5-14.5) % Plt Count 444 H (130-400) K/uL Sodium 138 (132-148) mmol/l Potassium 3.9 (3.6-5.0) MMOL/L Chloride 108 H (98-107) mmol/L Carbon Dioxide 20 L (22-30) mmol/L Anion Gap 14 (10-20) BUN 15 (7-17) mg/dl Creatinine 0.6 L (0.7-1.2) mg/dl Est GFR ( Amer) > 60 Est GFR (Non-Af Amer) > 60 Random Glucose 87 (65-105) mg/dL Calcium 9.2 (8.4-10.2) mg/dL Proteinase 3 (PR3) <1.0 (<1.0) AI Myeloperoxidase Ab <1.0 (<1.0) AI Laboratory Results - last 24 hr 01/04/18 01/07/18 01/07/18 13:58 04:20 04:20 WBC 12.0 H RBC 5.11 Hgb 11.8 L Hct 36.8 MCV 72.1 L MCH 23.0 L MCHC 31.9 L RDW 17.7 H Plt Count 444 H Sodium 138 Potassium 3.9 Chloride 108 H Carbon Dioxide 20 L Anion Gap 14 BUN 15 Creatinine 0.6 L Est GFR ( Amer) > 60 Est GFR (Non-Af Amer) > 60 Random Glucose 87 Calcium 9.2 Proteinase 3 (PR3) <1.0 Myeloperoxidase Ab <1.0 Review of Systems - Constitutional Constitutional: absent: Fever, Chills, Sweats, Weakness, Malaise - Cardiovascular Cardiovascular: absent: Chest Pain, Chest Pain at Rest, Chest Pain with Activity, Claudication, Diaphoresis - Respiratory Respiratory: Dyspnea on Exertion. absent: Cough, Dyspnea, Hemoptysis, Wheezing, Snoring - Gastrointestinal Gastrointestinal: absent: Abdominal Pain, Coffee Ground Emesis, Melena, Nausea, Vomiting Critical Care Progress Note - Extremities/Vascular Does the Patient have a Central Venous Catheter?: No Does the Patient need a Central Venous Catheter?: No Does the Patient have a Moore Catheter?: No Does the Patient need a Moore Catheter?: No - Nutrition Nutrition: Nutrition Category Date Time Status NPO Diet [DIET] Diets 01/06/18 Breakfast Active Assessment/Plan (1) Pulmonary HTN Current Visit: Yes Status: Acute Priority: High Comment: Scheduled for transfer to [facility] for Cardiac Cath Hypercoag workup and rheumatological work up in progress, (2) Pulmonary embolus Current Visit: No Status: Ruled-out Priority: Medium Comment: B/L LE ultrasound neg for DVT CT angio no central PE (3) Dyspnea Current Visit: Yes Status: Acute Priority: High (4) Palpitations Current Visit: Yes Status: Acute Priority: High
--- NOTE | 2018-01-07 15:02 | CP.PCM.PN ---
Addendum entered and electronically signed by Alejandro Moyer MD 01/07/18 19:19: pt seen and evaluated at bedside this evening. s/p cath procedure today. Pt tolerated procedure well, w/o complications. Pt seen laying comfortably in bed. No complaints. Tolerated PO intake w/o issue. Dressing overlying cath insertion site C/D/I. Denies pain. Original Note: <Sarthak Mora - Last Filed: 01/07/18 16:57> Subjective - Date & Time of Evaluation Date of Evaluation: 01/07/18 Time of Evaluation: 14:59 - Subjective Subjective: 22 YO F who was admitted for SOB was transported to [facility] this morning for Cath. Patient was not at bedside during evaluation today. Objective - Vital Signs/Intake and Output Vital Signs (last 24 hours): Temp Pulse Resp BP Pulse Ox 98.5 F 81 100 H 86/50 L 95 01/07/18 08:00 01/07/18 08:00 01/07/18 08:00 01/07/18 04:00 01/07/18 04:00 - Medications Medications: Current Medications Ferrous Sulfate (Feosol) 325 mg PO DAILY [facility] Last Admin: 01/07/18 08:48 Dose: Not Given Multivitamins/Minerals (Therapeutic-M Tab) 1 tab PO DAILY [facility] Last Admin: 01/07/18 08:48 Dose: Not Given - Labs Labs: 01/07/18 04:20 01/07/18 04:20 PT 14.1 Seconds (9.8-13.1) H 01/03/18 16:44 INR 1.3 01/03/18 16:44 APTT 35.0 Seconds (25.6-37.1) 01/03/18 16:44 Assessment and Plan - Assessment and Plan (Free Text) Assessment: 22 y/o admitted for recent onset of SOB on exertion Hypoxemia with Dyspnea and palpitations on exertion Stable Unclear cause at this time CT angio x2(12/31/17 and 01/03/18) neg for PE. Radiologist re-reviewed both CT angio and there is no obvious PE present on any study. Dimers elevated EKG shows RVH Cardiology consulted: Dr Goncalves, Echo reviewed and positive for pulm HTN, and increased r/heart pressures. As per Cardio suspicious for PE - Pulmonary consult appreciated LE US neg for DVT VQ scan ordered: Showed low probability of pulm embolism Patient currently gone for cath today with Dr. Barry today. Hypercoag workup ordered. F/U Iron deficiency c/w iron PO Pulmonary hypertension on Echocardiogram Patient had Cath today <Mayra Delacruz - Last Filed: 01/07/18 17:28> Objective - Vital Signs/Intake and Output Vital Signs (last 24 hours): Temp Pulse Resp BP Pulse Ox 98.5 F 81 100 H 86/50 L 95 01/07/18 08:00 01/07/18 08:00 01/07/18 08:00 01/07/18 04:00 01/07/18 04:00 - Medications Medications: Current Medications Ferrous Sulfate (Feosol) 325 mg PO DAILY [facility] Last Admin: 01/07/18 08:48 Dose: Not Given Multivitamins/Minerals (Therapeutic-M Tab) 1 tab PO DAILY [facility] Last Admin: 01/07/18 08:48 Dose: Not Given - Labs Labs: 01/07/18 04:20 01/07/18 04:20 PT 14.1 Seconds (9.8-13.1) H 01/03/18 16:44 INR 1.3 01/03/18 16:44 APTT 35.0 Seconds (25.6-37.1) 01/03/18 16:44 Attending/Attestation - Attestation I have fully participated in the care of the patient.: Yes I have reviewed all pertinent clinical information, including history, physical exam and plan: Yes Notes (Text): I did not see patient today as she was transferred to [facility] early in the morning for Cardiac cath and has not come back will wait to see patient again later in the day and will discuss Cardiac cath result with Dr Barry
[2018-01-07 15:35] LABS: RNP <1.0 AI (<1.0)
[2018-01-07 22:02] LABS: B2 GLYCOPROTEIN I AB(IGA) 13 SAU (<=20); B2 GLYCOPROTEIN I AB(IGG) <9 SGU (<=20); B2 GLYCOPROTEIN I AB(IGM) >150 SMU (<=20); CARDIOLIPIN AB (IGA) <11 APL (<=11); CARDIOLIPIN AB (IGG) <14 GPL (<=14); CARDIOLIPIN AB (IGM) 116 MPL (<=12)
[2018-01-08 02:24] LABS: PHOSPHATIDYLSERINE AB IGA <20 U/mL (<20); PHOSPHATIDYLSERINE AB IGG 19 U/mL (<10); PHOSPHATIDYLSERINE AB IGM >100 U/mL (<25)
[2018-01-08 05:45] LABS: HEMOGLOBIN 11.1 g/dL (12.0-16.0); MEAN CORPUSCULAR HEMOGLOBIN 22.4 pg (27.0-31.0); MEAN CORPUSCULAR HGB CONC 31.2 g/dL (33.0-37.0); RBC 4.94 Mil/uL (3.80-5.20); RED CELL DISTRIBUTION WIDTH 17.9 % (11.5-14.5); WHITE BLOOD COUNT 13.9 K/uL (4.8-10.8)
[2018-01-08 06:16] LABS: BLOOD UREA NITROGEN 15 mg/dl (7-17); GFR NON-AFRICAN AMERICAN > 60
[2018-01-08 08:08] LABS: BASO # 0.1 K/uL (0.0-0.2); BASO % 0.6 % (0.0-2.0); EOS # 0.1 K/uL (0.0-0.7); LYMPH % 28.8 % (20.0-40.0); MEAN PLATELET VOLUME 8.7 fl (7.2-11.7); MONO # 1.2 K/uL (0.0-0.8); MONO % 8.7 % (0.0-10.0); NEUT # 8.5 K/uL (1.8-7.0); NEUT % 60.9 % (50.0-75.0)
--- NOTE | 2018-01-08 09:01 | CP.PCM.PN ---
Subjective - Date & Time of Evaluation Date of Evaluation: 01/08/18 Time of Evaluation: 09:02 - Subjective Subjective: NO APPARENT DISTRESS S/P CARDIAC CATH YESTERDAY Objective - Vital Signs/Intake and Output Vital Signs (last 24 hours): Temp Pulse Resp BP Pulse Ox 98.2 F 85 18 88/56 L 94 L 01/08/18 08:00 01/08/18 08:00 01/08/18 08:00 01/08/18 08:00 01/08/18 08:00 - Medications Medications: Current Medications Ferrous Sulfate (Feosol) 325 mg PO DAILY [facility] Last Admin: 01/07/18 08:48 Dose: Not Given Multivitamins/Minerals (Therapeutic-M Tab) 1 tab PO DAILY [facility] Last Admin: 01/07/18 08:48 Dose: Not Given - Labs Labs: 01/08/18 04:30 01/08/18 04:30 PT 14.1 Seconds (9.8-13.1) H 01/03/18 16:44 INR 1.3 01/03/18 16:44 APTT 35.0 Seconds (25.6-37.1) 01/03/18 16:44 - Constitutional Appears: No Acute Distress - Head Exam Head Exam: ATRAUMATIC, NORMAL INSPECTION, NORMOCEPHALIC - Eye Exam Eye Exam: EOMI, Normal appearance, PERRL Pupil Exam: NORMAL ACCOMODATION, PERRL - ENT Exam ENT Exam: Mucous Membranes Moist, Normal Exam - Neck Exam Neck Exam: Full ROM, Normal Inspection. absent: Lymphadenopathy - Respiratory Exam Respiratory Exam: Clear to Ausculation Bilateral, NORMAL BREATHING PATTERN - Cardiovascular Exam Cardiovascular Exam: REGULAR RHYTHM, +S1, +S2. absent: Murmur - GI/Abdominal Exam GI & Abdominal Exam: Soft, Normal Bowel Sounds. absent: Tenderness - Rectal Exam Rectal Exam: NORMAL INSPECTION - Extremities Exam Extremities Exam: Full ROM, Normal Capillary Refill, Normal Inspection. absent: Joint Swelling, Pedal Edema - Back Exam Back Exam: NORMAL INSPECTION - Neurological Exam Neurological Exam: Alert, Awake, CN II-XII Intact, Normal Gait, Oriented x3 - Psychiatric Exam Psychiatric exam: Normal Affect, Normal Mood - Skin Skin Exam: Dry, Intact, Normal Color, Warm Assessment and Plan - Assessment and Plan (Free Text) Assessment: PUMONARY HYPERTENSION--?ETIOLOGY Plan: AWAIT CARDIOLOGY RECOMMENDATION RE-THERAPY
[2018-01-08] MEDS ORDERED: Iohexol 240 (50 ml) PO ONE (10:22)
[2018-01-08] MEDS: Multivitamin With Minerals Tab PO SCH (10:34)
--- NOTE | 2018-01-08 11:04 | CP.PCM.CON ---
History of Present Illness - History of Present Illness History of Present Illness: This is a 22 yrs old female who was admitted because she was seen in the clinic with mild shortness of breath and chest pain . CXR and CT scan were [id number] for PE, and there was no DVT either. Her D dimers were very elevated . She had a echocadiogram which showed evidence of pulmonary hypertension, She has a cath yesterday but no results are available yet. She is very hypoxic with a po2 of 60%. No family h/o CVA or thrombotic problems. No respiratory problema either. She is not a smoker She does not drink. Past Patient History - Infectious Disease Hx of Infectious Diseases: None - Past Medical History & Family History Past Medical History?: No - Past Social History Smoking Status: Never Smoked - CARDIAC Hx Cardiac Disorders: No - PULMONARY Hx Respiratory Disorders: No - NEUROLOGICAL Hx Syncope: Yes - HEENT Hx HEENT Problems: No - RENAL Hx Chronic Kidney Disease: No - ENDOCRINE/METABOLIC Hx Endocrine Disorders: No - HEMATOLOGICAL/ONCOLOGICAL Hx Blood Disorders: No - INTEGUMENTARY Hx Dermatological Problems: No - MUSCULOSKELETAL/RHEUMATOLOGICAL Hx Falls: Yes - GASTROINTESTINAL Hx Gastrointestinal Disorders: No - GENITOURINARY/GYNECOLOGICAL Hx Genitourinary Disorders: No - PSYCHIATRIC Hx Substance Use: No - SURGICAL HISTORY Hx Surgeries: No - ANESTHESIA Hx Anesthesia: No Hx Anesthesia Reactions: No Meds Allergies/Adverse Reactions: Allergies Allergy/AdvReac Type Severity Reaction Status Date / Time No Known Allergies Allergy Verified 12/31/17 15:36 - Medications Medications: Current Medications Ferrous Sulfate (Feosol) [address] [facility] Last Admin: 01/08/18 10:34 Dose: 325 mg Multivitamins/Minerals (Therapeutic-M Tab) [address] [facility] Last Admin: 01/08/18 10:34 Dose: 1 tab Physical Exam - Additional Findings Additional findings: Physical exam; Alert well oriented with mild respiratory distress. Neck; supple ,no adenopathy Chest; air entry poor bilaterallly, no rhonchi or rales Heartt; RSR, no murmur Abd; soft, no mass, no h/s megaly Results - Vital Signs Recent Vital Signs: Last Vital Signs Temp 98.2 F 01/08/18 08:00 Pulse 85 01/08/18 08:00 Resp 18 01/08/18 08:00 BP 88/56 L 01/08/18 08:00 Pulse Ox 94 L 01/08/18 08:00 - Labs Result Diagrams: 01/08/18 04:30 01/08/18 04:30 Labs: Laboratory Results - last 24 hr 01/04/18 01/04/18 01/04/18 13:58 13:58 13:58 WBC RBC Hgb Hct MCV MCH MCHC RDW Plt Count MPV Neut % (Auto) Lymph % (Auto) [place] % (Auto) Eos % (Auto) Baso % (Auto) Neut # (Auto) Lymph # (Auto) [place] # (Auto) Eos # (Auto) Baso # (Auto) Total Counted Neutrophils % (Manual) Band Neutrophils % Lymphocytes % (Manual) Reactive Lymphs % Monocytes % (Manual) Eosinophils % (Manual) Basophils % (Manual) Metamyelocytes % Myelocytes % Promyelocytes % Blast Cells % Plasma Cell % (Manual) Nucleated RBC % Hypersegmented Polys Smudge Cells Toxic Granulation Dohle Bodies Mami Rods Platelet Estimate Plt Clumps, EDTA Large Platelets Giant Platelets RBC Morphology Polychromasia Hypochromasia (manual) Poikilocytosis (manual Basophilic Stippling Anisocytosis (manual) Microcytosis (manual) Macrocytosis (manual) Spherocytes Sickle Cells Target Cells Tear Drop Cells Ovalocytes Stomatocytes Helmet Cells Reyes-Spalding Bodies Ignacio Cells Acanthocytes (Spur) Rouleaux Schistocytes Protein C Activity 64 L Protein S Activity 63 Sodium Potassium Chloride Carbon Dioxide Anion Gap BUN Creatinine Est GFR ( Amer) Est GFR (Non-Af Amer) Random Glucose Calcium Angiotensin Convert Enz Proteinase 3 (PR3) Myeloperoxidase Ab CLINICAL DATA MANAGEMENT MANAGER Antibody CLINICAL DATA MANAGEMENT MANAGER Antibody Interp Double Strand DNA Ab 1 [id number] Ab Beta-2 GPI IgG Ab Beta-2 GPI IgM Ab Phosphatidylserine IgG Phosphatidylserine IgA Phosphatidylserine IgM Anti-Phospholipid Intrp Anti-Cardiolipin IgG Ab Anti-Cardiolipin IgA Ab Anti-Cardiolipin IgM Ab 01/04/18 01/04/18 01/04/18 13:58 13:58 13:58 WBC RBC Hgb Hct MCV MCH MCHC RDW Plt Count MPV Neut % (Auto) Lymph % (Auto) [place] % (Auto) Eos % (Auto) Baso % (Auto) Neut # (Auto) Lymph # (Auto) [place] # (Auto) Eos # (Auto) Baso # (Auto) Total Counted Neutrophils % (Manual) Band Neutrophils % Lymphocytes % (Manual) Reactive Lymphs % Monocytes % (Manual) Eosinophils % (Manual) Basophils % (Manual) Metamyelocytes % Myelocytes % Promyelocytes % Blast Cells % Plasma Cell % (Manual) Nucleated RBC % Hypersegmented Polys Smudge Cells Toxic Granulation Dohle Bodies Mami Rods Platelet Estimate Plt Clumps, EDTA Large Platelets Giant Platelets RBC Morphology Polychromasia Hypochromasia (manual) Poikilocytosis (manual Basophilic Stippling Anisocytosis (manual) Microcytosis (manual) Macrocytosis (manual) Spherocytes Sickle Cells Target Cells Tear Drop Cells Ovalocytes Stomatocytes Helmet Cells Reyes-Spalding Bodies Ignacio Cells Acanthocytes (Spur) Rouleaux Schistocytes Protein C Activity Protein S Activity Sodium Potassium Chloride Carbon Dioxide Anion Gap BUN Creatinine Est GFR ( Amer) Est GFR (Non-Af Amer) Random Glucose Calcium Angiotensin Convert Enz Proteinase 3 (PR3) <1.0 Myeloperoxidase Ab <1.0 CLINICAL DATA MANAGEMENT MANAGER Antibody <1.0 CLINICAL DATA MANAGEMENT MANAGER Antibody Interp Negative Double Strand DNA Ab [id number] Ab 13 Beta-2 GPI IgG Ab <9 Beta-2 GPI IgM Ab >150 H Phosphatidylserine IgG 19 H Phosphatidylserine IgA <20 Phosphatidylserine IgM >100 H Anti-Phospholipid Intrp see note Anti-Cardiolipin IgG Ab <14 Anti-Cardiolipin IgA Ab <11 Anti-Cardiolipin IgM Ab 116 H 01/05/18 01/08/18 01/08/18 12:07 04:30 04:30 WBC 13.9 H RBC 4.94 Hgb 11.1 L Hct 35.6 MCV 72.0 L MCH 22.4 L MCHC 31.2 L RDW 17.9 H Plt Count 415 H MPV 8.7 Neut % (Auto) 60.9 Lymph % (Auto) 28.8 [place] % (Auto) 8.7 Eos % (Auto) 1.0 Baso % (Auto) 0.6 Neut # (Auto) 8.5 H Lymph # (Auto) 4.0 [place] # (Auto) 1.2 H Eos # (Auto) 0.1 Baso # (Auto) 0.1 Total Counted Cancelled Neutrophils % (Manual) Cancelled Band Neutrophils % Cancelled Lymphocytes % (Manual) Cancelled Reactive Lymphs % Cancelled Monocytes % (Manual) Cancelled Eosinophils % (Manual) Cancelled Basophils % (Manual) Cancelled Metamyelocytes % Cancelled Myelocytes % Cancelled Promyelocytes % Cancelled Blast Cells % Cancelled Plasma Cell % (Manual) Cancelled Nucleated RBC % Cancelled Hypersegmented Polys Cancelled Smudge Cells Cancelled Toxic Granulation Cancelled Dohle Bodies Cancelled Mami Rods Cancelled Platelet Estimate Cancelled Plt Clumps, EDTA Cancelled Large Platelets Cancelled Giant Platelets Cancelled RBC Morphology Cancelled Polychromasia Cancelled Hypochromasia (manual) Cancelled Poikilocytosis (manual Cancelled Basophilic Stippling Cancelled Anisocytosis (manual) Cancelled Microcytosis (manual) Cancelled Macrocytosis (manual) Cancelled Spherocytes Cancelled Sickle Cells Cancelled Target Cells Cancelled Tear Drop Cells Cancelled Ovalocytes Cancelled Stomatocytes Cancelled Helmet Cells Cancelled Reyes-Spalding Bodies Cancelled Daphne Cells Cancelled Acanthocytes (Spur) Cancelled Rouleaux Cancelled Schistocytes Cancelled Protein C Activity Protein S Activity Sodium 138 Potassium 4.0 Chloride 108 H Carbon Dioxide 18 L Anion Gap 16 BUN 15 Creatinine 0.6 L Est GFR ( Amer) > 60 Est GFR (Non-Af Amer) > 60 Random Glucose 86 Calcium 9.0 Angiotensin Convert Enz 42 Proteinase 3 (PR3) Myeloperoxidase Ab CLINICAL DATA MANAGEMENT MANAGER Antibody CLINICAL DATA MANAGEMENT MANAGER Antibody Interp Double Strand DNA Ab [id number] Ab Beta-2 GPI IgG Ab Beta-2 GPI IgM Ab Phosphatidylserine IgG Phosphatidylserine IgA Phosphatidylserine IgM Anti-Phospholipid Intrp Anti-Cardiolipin IgG Ab Anti-Cardiolipin IgA Ab Anti-Cardiolipin IgM Ab Assessment & Plan - Assessment and Plan (Free Text) Assessment: Impression; Severe chest discomfort and hypoxia ? pulmonary emboli ? Pulmonary hypertension Plan: Plan; I have ordered a ct scan of the abdomen and pelvis to r/O occult malignancy or IVC clot. Have also ordered tests for hypercoagulable state Will follow. - Date & Time Date: 01/08/18 Time: 11:30
[2018-01-08] MEDS ORDERED: Sodium Chloride 0.9% 50 ML IV ONE (13:18)
[2018-01-08] MEDS ORDERED: Iohexol 300 100 ML IJ ONE (13:18)
--- NOTE | 2018-01-08 14:14 | CT ---
Date of service: 01/08/2018 PROCEDURE: CT Abdomen and Pelvis with contrast HISTORY: chst pain ? PE COMPARISON: Upper abdomen sections from chest CT with contrast 01/03/2018. TECHNIQUE: Following oral and intravenous contrast administration, a CT examination of the abdomen and pelvis performed from the domes of the diaphragms to the symphysis pubis with reformatted datasets provided not only axial but also sagittal and coronal series. Coronal and sagittal reformats were generated. contrast dose: Omnipaque 300, 95 cc Radiation dose: Total exam DLP = 257.25 mGy-cm. This CT exam was performed using one or more of the following dose reduction techniques: Automated exposure control, adjustment of the mA and/or kV according to patient size, and/or use of iterative reconstruction technique. FINDINGS: LOWER THORAX: Elevated right hemidiaphragm. No pleural or pericardial effusion appreciable. Dilated right lateral ventricle with straightening of the interventricular septum suggesting strain. LIVER: Heterogeneous, mottled attenuation is seen throughout the liver with moderate prominence of the inferior vena cava. No focal mass is appreciated or definite intrahepatic biliary dilatation with a pattern suggesting hepatic venous congestion. In a patient with history of pulmonary artery hypertension, this pattern is not unusual. Other etiologies could include congestive heart failure from other etiologies, constrictive pericarditis or patent veno-occlusive disease. The caudate lobe also enhances abnormally and Budd-Chiari syndrome is not included in the differential diagnosis. GALLBLADDER AND BILE DUCTS: Moderate gallbladder distension. Cholelithiasis is minimally identified. No mural thickening or pericholecystic fluid to suggest active gallbladder disease at this time. PANCREAS: Unremarkable. No gross lesion or ductal dilatation. SPLEEN: Unremarkable. ADRENALS: Unremarkable. No mass. KIDNEYS AND URETERS: Unremarkable. No hydronephrosis. No solid mass. VASCULATURE: Unremarkable. No aortic aneurysm. BOWEL: The stomach is distended with retained food and a bit of oral contrast and is otherwise unremarkable appearing. Bowel is not appear obstructed. No constricting or obstructing mass grossly appreciated in large bowel. Retained fecal material obscures the lumen of left hemicolon somewhat. APPENDIX: Normal appendix. PERITONEUM: Unremarkable. No free fluid. No free air. LYMPH NODES: Unremarkable. No enlarged lymph nodes. BLADDER: Unremarkable. REPRODUCTIVE: 1.9 cm left adnexal cyst. Fluid is seen in the endometrial cavity with trace cul-de-sac fluid of uncertain origin. BONES: No acute fracture. OTHER FINDINGS: None. IMPRESSION: Findings most compatible with congestive hepatopathy likely as a function of patient's known pulmonary artery hypertension and likely right heart failure. Cholelithiasis. 1.9 cm left adnexal cyst. Fluid is seen in the endometrial cavity and there is trace cul-de-sac fluid in the pelvis. Consider follow-up pelvic ultrasonography, both transabdominal and transvaginal.
--- NOTE | 2018-01-08 15:18 | NM ---
Date of service: 01/04/2018 COMPARISON: CT angiogram chest 01/03/2018. TECHNIQUE: 37.98 mCi technetium 99-m DTPA aerosol. 4.88 mCI technetium 99-m MAA administered intravenously. FINDINGS: VENTILATION COMPONENT: Limited nonsegmental defect right hilar region. PERFUSION COMPONENT: Matching nonsegmental defect right hilar region. No suspicious perfusion mismatches. IMPRESSION: Lowprobability ventilation perfusion scan for pulmonary embolism.
--- NOTE | 2018-01-08 16:02 | CP.PCM.PN ---
Subjective - Date & Time of Evaluation Date of Evaluation: 01/07/18 Time of Evaluation: 09:00 - Subjective Subjective: plan for RHCx today machinery murmur on exam Objective - Vital Signs/Intake and Output Vital Signs (last 24 hours): Temp Pulse Resp BP Pulse Ox 98.5 F 115 H 18 103/67 95 01/08/18 12:00 01/08/18 14:00 01/08/18 14:00 01/08/18 14:00 01/08/18 14:00 - Medications Medications: Current Medications Ferrous Sulfate (Feosol) 325 mg PO DAILY [facility] Last Admin: 01/08/18 10:34 Dose: 325 mg Multivitamins/Minerals (Therapeutic-M Tab) 1 tab PO DAILY [facility] Last Admin: 01/08/18 10:34 Dose: 1 tab - Labs Labs: 01/08/18 04:30 01/08/18 04:30 PT 14.1 Seconds (9.8-13.1) H 01/03/18 16:44 INR 1.3 01/03/18 16:44 APTT 35.0 Seconds (25.6-37.1) 01/03/18 16:44 - Constitutional Appears: Well - Head Exam Head Exam: ATRAUMATIC, NORMAL INSPECTION, NORMOCEPHALIC - Eye Exam Eye Exam: EOMI, Normal appearance, PERRL Pupil Exam: NORMAL ACCOMODATION, PERRL - ENT Exam ENT Exam: Mucous Membranes Moist, Normal Exam - Neck Exam Neck Exam: Full ROM, Normal Inspection. absent: Lymphadenopathy - Respiratory Exam Respiratory Exam: Clear to Ausculation Bilateral, NORMAL BREATHING PATTERN - Cardiovascular Exam Cardiovascular Exam: REGULAR RHYTHM, +S1, +S2, Murmur - GI/Abdominal Exam GI & Abdominal Exam: Soft, Normal Bowel Sounds. absent: Tenderness - Extremities Exam Extremities Exam: Full ROM, Normal Capillary Refill, Normal Inspection. absent: Joint Swelling, Pedal Edema - Back Exam Back Exam: NORMAL INSPECTION - Neurological Exam Neurological Exam: Alert, Awake, CN II-XII Intact, Normal Gait, Oriented x3 - Psychiatric Exam Psychiatric exam: Normal Affect, Normal Mood - Skin Skin Exam: Dry, Intact, Normal Color, Warm Assessment and Plan (1) Pulmonary HTN Assessment & Plan: Step up from RV to PA suggestive of left to right shunt will need OLIVA with bubble study severe pulmonary HTN with PASP of 90/50 with mean PAP of 54 Status: Acute (2) Dyspnea Status: Acute (3) Palpitations Status: Acute
--- NOTE | 2018-01-08 17:08 | CP.PCM.PN ---
Addendum entered and electronically signed by Valarie Godwin MD 01/08/18 18:20: Patient seen and examined bedside.All chart and clinical data reviewed . Case discussed with resident. Agree with assessment and plan . 22 y/o f with no PMH admitted for dyspnea omn exertion and hypoxia PO2 60 in RA CTA showed no PE , Doppler US - neg for DVT Echo showed dilated RV , RA and PA s/p cardic cath that showed pulmonary hypertension , normal coronaries plan to perform OLIVA in Am to r/o PDA Continue current management hematology consulted and case discussed.Will start patient on Low dose eliquist on discharge Original Note: Subjective - Date & Time of Evaluation Date of Evaluation: 01/08/18 Time of Evaluation: 10:02 - Subjective Subjective: 22 YO F seen at bedside resting comfortably at bedside. Resting comfortably today. Have spoke with the patient in detail with Dr. Barry at bedside regarding her Cath findings. She will require a OLIVA with bubble study tomorrow, for possible PDA. - Denies any chest pain, SOB, N/V/D today. Objective - Vital Signs/Intake and Output Vital Signs (last 24 hours): Temp Pulse Resp BP Pulse Ox 97.5 F L 112 H 22 90/58 L 95 01/08/18 16:00 01/08/18 16:00 01/08/18 16:00 01/08/18 16:00 01/08/18 16:00 - Medications Medications: Current Medications Ferrous Sulfate (Feosol) 325 mg PO DAILY [facility] Last Admin: 01/08/18 10:34 Dose: 325 mg Multivitamins/Minerals (Therapeutic-M Tab) 1 tab PO DAILY [facility] Last Admin: 01/08/18 10:34 Dose: 1 tab - Labs Labs: 01/08/18 04:30 01/08/18 04:30 PT 14.1 Seconds (9.8-13.1) H 01/03/18 16:44 INR 1.3 01/03/18 16:44 APTT 35.0 Seconds (25.6-37.1) 01/03/18 16:44 Assessment and Plan - Assessment and Plan (Free Text) Assessment: 22 y/o admitted for recent onset of SOB on exertion 1) Hypoxemia with Dyspnea and palpitations on exertion Stable Unclear cause at this time CT angio x2(12/31/17 and 01/03/18) neg for PE. Radiologist re-reviewed both CT angio and there is no obvious PE present on any study. Dimers elevated EKG shows RVH Cardiology consulted: Dr Goncalves, Echo reviewed and positive for pulm HTN, and increased r/heart pressures. As per Cardio suspicious for PE - Pulmonary consult appreciated LE US neg for DVT VQ scan ordered: Showed low probability of pulm embolism Patient went for cath yesterday: Showed Step up from RV to PA suggestive of left to right shunt. Possibly PDA. Will need OLIVA with bubble study tomorrow . NPO overnight 2) Iron deficiency c/w iron PO. 3) Pulmonary hypertension on Echocardiogram Patient had Cath yesterday Showed Step up from RV to PA suggestive of left to right shunt. Possibly PDA.
[2018-01-09 05:34] LABS: BASO # 0.1 K/uL (0.0-0.2); BASO % 0.7 % (0.0-2.0); EOS # 0.2 K/uL (0.0-0.7); EOS % 1.7 % (0.0-4.0); HEMOGLOBIN 11.3 g/dL (12.0-16.0); LYMPH # 4.8 K/uL (1.0-4.3); LYMPH % 32.8 % (20.0-40.0); MEAN CORPUSCULAR HEMOGLOBIN 22.8 pg (27.0-31.0); MEAN CORPUSCULAR HGB CONC 31.6 g/dL (33.0-37.0); MEAN PLATELET VOLUME 8.3 fl (7.2-11.7); MONO # 1.2 K/uL (0.0-0.8); MONO % 8.2 % (0.0-10.0); NEUT # 8.2 K/uL (1.8-7.0); NEUT % 56.6 % (50.0-75.0); RBC 4.95 Mil/uL (3.80-5.20); WHITE BLOOD COUNT 14.5 K/uL (4.8-10.8)
[2018-01-09 05:58] LABS: ALB/GLOB RATIO 1.2 (1.0-2.1); ALBUMIN 3.8 g/dL (3.5-5.0); ALT/SGPT 28 U/L (9-52); AST/SGOT 29 U/L (14-36); BLOOD UREA NITROGEN 11 mg/dl (7-17); CALCIUM 9.2 mg/dL (8.4-10.2); GFR NON-AFRICAN AMERICAN > 60
[2018-01-09] MEDS: Multivitamin With Minerals Tab PO SCH (08:03)
--- NOTE | 2018-01-09 09:17 | CP.PCM.PN ---
Subjective - Date & Time of Evaluation Date of Evaluation: 01/09/18 Time of Evaluation: 09:04 - Subjective Subjective: Pt's VQ scan was negative. She is to have a OLIVA today. Among the hypercoagulable tests sent the one that has come back positive is the ardiolipin antibody. Since there is no evidence of thrombosis this may be an incidental finding. On discharge however would put her on ASA 81 mg. or eliquis because pulmonary hypertension may lead to thrombosis. Her abdominal CT scan only showed some mottling of the liver, but there was no evidence of thrombosis., or malignancy. Objective - Vital Signs/Intake and Output Vital Signs (last 24 hours): Temp Pulse Resp BP Pulse Ox 98.2 F 79 16 98/63 L 95 01/09/18 08:00 01/09/18 08:00 01/09/18 08:00 01/09/18 08:00 01/09/18 08:00 Intake and Output: 01/09/18 01/09/18 06:59 18:59 Intake Total 240 Balance 240 - Medications Medications: Current Medications Ferrous Sulfate (Feosol) 325 mg PO DAILY [facility] Last Admin: 01/09/18 08:03 Dose: Not Given Multivitamins/Minerals (Therapeutic-M Tab) 1 tab PO DAILY [facility] Last Admin: 01/09/18 08:03 Dose: Not Given - Labs Labs: 01/09/18 04:30 01/09/18 04:30 PT 14.1 Seconds (9.8-13.1) H 01/03/18 16:44 INR 1.3 01/03/18 16:44 APTT 35.0 Seconds (25.6-37.1) 01/03/18 16:44
[2018-01-09] MEDS ORDERED: Benzocaine/Butamben/Tetracai 14-2-2% TOP Spray TOP ONE (11:56)
--- NOTE | 2018-01-09 13:57 | CP.PCM.PN ---
Addendum entered and electronically signed by Valarie Godwin MD 01/09/18 18:43: Patient seen and examined bedside.All chart and clinical data reviewed . Case discussed with resident. Agree with assessment and plan . 22 y/o F with no PMH admitted for dyspnea on exertion and hypoxia, PO2 60 n ABG in RA CTA showed no PE , Doppler US - neg for DVT Echo showed dilated RV , RA and PA s/p cardic cath that showed pulmonary hypertension , normal coronaries Underwent OLIVA today that showed VSD Continue current management Patient will nee to follow up with tertiary center for surgical correction of VSD Hematology consulted and case discussed.Will start patient on Low dose eliquist on discharge Dispo : d/c in AM with follow up with clinic Original Note: Subjective - Date & Time of Evaluation Date of Evaluation: 01/09/18 Time of Evaluation: 13:54 - Subjective Subjective: 22 YO F is seen at bedside. Appears to be doing well. Denies any chest pain or SOB. - She has been NPO overnight and is awaiting OLIVA today. She otherwise is doing well and is seen happily spending time with her friend. Objective - Vital Signs/Intake and Output Vital Signs (last 24 hours): Temp Pulse Resp BP Pulse Ox 98.7 F 86 16 93/53 L 96 01/09/18 12:00 01/09/18 12:00 01/09/18 12:00 01/09/18 12:00 01/09/18 12:00 Intake and Output: 01/09/18 01/09/18 06:59 18:59 Intake Total 240 Balance 240 - Medications Medications: Current Medications Ferrous Sulfate (Feosol) 325 mg PO DAILY [facility] Last Admin: 01/09/18 08:03 Dose: Not Given Multivitamins/Minerals (Therapeutic-M Tab) 1 tab PO DAILY [facility] Last Admin: 01/09/18 08:03 Dose: Not Given - Labs Labs: 01/09/18 04:30 01/09/18 04:30 PT 14.1 Seconds (9.8-13.1) H 01/03/18 16:44 INR 1.3 01/03/18 16:44 APTT 35.0 Seconds (25.6-37.1) 01/03/18 16:44 - Constitutional Appears: No Acute Distress - Head Exam Head Exam: NORMAL INSPECTION - Eye Exam Eye Exam: Normal appearance - ENT Exam ENT Exam: Mucous Membranes Moist - Neck Exam Neck Exam: Full ROM, Normal Inspection - Respiratory Exam Respiratory Exam: Clear to Ausculation Bilateral, NORMAL BREATHING PATTERN. absent: Rhonchi, Wheezes - Cardiovascular Exam Cardiovascular Exam: REGULAR RHYTHM, +S1, +S2, Murmur (systolic) Additional comments: systolic murmur - GI/Abdominal Exam GI & Abdominal Exam: Soft, Normal Bowel Sounds - Extremities Exam Extremities Exam: Full ROM, Normal Inspection - Neurological Exam Neurological Exam: Alert, Awake, Oriented x3 - Skin Skin Exam: Dry, Warm Assessment and Plan - Assessment and Plan (Free Text) Assessment: 22 y/o admitted for recent onset of SOB on exertion 1) Hypoxemia with Dyspnea and palpitations on exertion - Stable - CT angio x2(12/31/17 and 01/03/18) neg for PE. Radiologist re-reviewed both CT angio and there is no obvious PE present on any study. - Dimers elevated - EKG shows RVH - Cardiology consulted: Dr Goncalves, Echo reviewed and positive for pulm HTN, and increased r/heart pressures. As per Cardio suspicious for PE - Pulmonary consult appreciated. - Patient had positive cardiolipin antibody. Since patient was found to have positive cardiolipin antibody and pulmonary HTN which may lead to thrombosis. - - Plan is to discharge patient on asprin or Elliquis on discharge. - LE US neg for DVT - VQ scan ordered: Showed low probability of pulm embolism - Patient went for cath yesterday: PO2:60 in RA. Showed Step up from RV to PA suggestive of left to right shunt. Possibly PDA. - Most likely secondary to VSD - OLIVA shows psuedomembronous VSD. Spoke with Dr. Barry in detail. 2) Iron deficiency c/w iron PO. 3) Pulmonary hypertension on Echocardiogram - Most likely secondary to VS - Showed Step up from RV to PA suggestive of left to right shunt. Possibly PDA. - OLIVA shows psuedomembronous VSD
[2018-01-09 14:06] LABS: SQUAMOUS EPITHIAL 2 /hpf (0-5); URINE BILIRUBIN NEGATIVE (NEGATIVE); URINE BLOOD NEGATIVE (NEGATIVE); URINE CLARITY SLIGHTY-CLOUDY (Clear); URINE COLOR YELLOW (YELLOW); URINE GLUCOSE (UA) NEG (Normal); URINE LEUKOCYTE ESTERASE SMALL Leu/uL (Negative); URINE PROTEIN NEGATIVE (NEGATIVE); URINE UROBILINOGEN 0.2-1.0 mg/dL (0.2-1.0)
[2018-01-09] MEDS ORDERED: Phenylephrine 10 mg/ml Inj ONE (14:46)
[2018-01-09] MEDS ORDERED: Propofol 10 mg/ml Inj (20 ML) ONE (14:52)
[2018-01-09] MEDS ORDERED: Midazolam 2 MG/2 ML VIAL ONE (14:53)
[2018-01-09] MEDS ORDERED: Etomidate 20 mg/10ml Inj IV ONE (14:53)
--- NOTE | 2018-01-09 16:01 | CP.PCM.PN ---
Subjective - Date & Time of Evaluation Date of Evaluation: 01/09/18 Time of Evaluation: 16:00 - Subjective Subjective: s/p OLIVA showing perimembranous VSD Objective - Vital Signs/Intake and Output Vital Signs (last 24 hours): Temp Pulse Resp BP Pulse Ox 98.7 F 98 H 17 104/43 L 99 01/09/18 12:00 01/09/18 14:00 01/09/18 14:00 01/09/18 14:00 01/09/18 14:00 Intake and Output: 01/09/18 01/09/18 06:59 18:59 Intake Total 240 Balance 240 - Medications Medications: Current Medications Ferrous Sulfate (Feosol) 325 mg PO DAILY [facility] Last Admin: 01/09/18 08:03 Dose: Not Given Multivitamins/Minerals (Therapeutic-M Tab) 1 tab PO DAILY [facility] Last Admin: 01/09/18 08:03 Dose: Not Given - Labs Labs: 01/09/18 04:30 01/09/18 04:30 PT 14.1 Seconds (9.8-13.1) H 01/03/18 16:44 INR 1.3 01/03/18 16:44 APTT 35.0 Seconds (25.6-37.1) 01/03/18 16:44 - Constitutional Appears: Well - Head Exam Head Exam: ATRAUMATIC, NORMAL INSPECTION, NORMOCEPHALIC - Eye Exam Eye Exam: EOMI, Normal appearance, PERRL Pupil Exam: NORMAL ACCOMODATION, PERRL - ENT Exam ENT Exam: Mucous Membranes Moist, Normal Exam - Neck Exam Neck Exam: Full ROM, Normal Inspection. absent: Lymphadenopathy - Respiratory Exam Respiratory Exam: Clear to Ausculation Bilateral, NORMAL BREATHING PATTERN - Cardiovascular Exam Cardiovascular Exam: REGULAR RHYTHM, +S1, +S2, Murmur - GI/Abdominal Exam GI & Abdominal Exam: Soft, Normal Bowel Sounds. absent: Tenderness - Extremities Exam Extremities Exam: Full ROM, Normal Capillary Refill, Normal Inspection. absent: Joint Swelling, Pedal Edema - Back Exam Back Exam: NORMAL INSPECTION - Neurological Exam Neurological Exam: Alert, Awake, CN II-XII Intact, Normal Gait, Oriented x3 - Psychiatric Exam Psychiatric exam: Normal Affect, Normal Mood - Skin Skin Exam: Dry, Intact, Normal Color, Warm Assessment and Plan (1) VSD (ventricular septal defect), perimembranous Assessment & Plan: s/p OLIVA showing perimembranous VSD will need surgical correction Status: Acute (2) Pulmonary HTN Status: Acute (3) Dyspnea Status: Acute (4) Palpitations Status: Acute
[2018-01-10 01:02] VITALS: RESP 18
[2018-01-10 06:00] LABS: BASO % 0.3 % (0.0-2.0); EOS # 0.3 K/uL (0.0-0.7); EOS % 2.3 % (0.0-4.0); HEMOGLOBIN 11.3 g/dL (12.0-16.0); LYMPH # 4.1 K/uL (1.0-4.3); LYMPH % 32.1 % (20.0-40.0); MEAN CELL VOLUME 72.3 fl (81.0-99.0); MEAN CORPUSCULAR HEMOGLOBIN 22.7 pg (27.0-31.0); MEAN CORPUSCULAR HGB CONC 31.5 g/dL (33.0-37.0); MEAN PLATELET VOLUME 8.5 fl (7.2-11.7); MONO # 0.9 K/uL (0.0-0.8); NEUT # 7.5 K/uL (1.8-7.0); NEUT % 58.3 % (50.0-75.0); RBC 4.97 Mil/uL (3.80-5.20); RED CELL DISTRIBUTION WIDTH 18.3 % (11.5-14.5); WHITE BLOOD COUNT 12.9 K/uL (4.8-10.8)
[2018-01-10 06:30] LABS: BLOOD UREA NITROGEN 7 mg/dl (7-17); GFR NON-AFRICAN AMERICAN > 60
--- NOTE | 2018-01-10 08:12 | CP.PCM.PN ---
Subjective - Date & Time of Evaluation Date of Evaluation: 01/10/18 Time of Evaluation: 08:08 - Subjective Subjective: Pt is feeling ok but is more anxious to go home. Dr Barry's note seen. Pt is going to need surgery for her VSD. if she is going for surgery,she will need anticoagulants immediately after surgery. The MTHFR resilt is not back yet, so as of now, the only hypercoagulable factor seems to be the cardiolipin antibody Objective - Vital Signs/Intake and Output Vital Signs (last 24 hours): Temp Pulse Resp BP Pulse Ox 98.1 F 87 18 90/50 L 94 L 01/10/18 04:59 01/10/18 04:59 01/10/18 04:59 01/10/18 04:59 01/10/18 04:59 - Medications Medications: Current Medications Ferrous Sulfate (Feosol) 325 mg PO DAILY [facility] Last Admin: 01/09/18 08:03 Dose: Not Given Multivitamins/Minerals (Therapeutic-M Tab) 1 tab PO DAILY [facility] Last Admin: 01/09/18 08:03 Dose: Not Given - Labs Labs: 01/10/18 04:25 01/10/18 04:25 PT 14.1 Seconds (9.8-13.1) H 01/03/18 16:44 INR 1.3 01/03/18 16:44 APTT 35.0 Seconds (25.6-37.1) 01/03/18 16:44
[2018-01-10] MEDS: Multivitamin With Minerals Tab PO SCH (09:39)
--- NOTE | 2018-01-10 10:50 | CP.PCM.DIS ---
Provider - Provider Date of Admission: 01/03/18 19:04 Attending physician: Marty Myrick MD Primary care physician: [facility] Consults: cardiology consult Hematology consult Pulmonary consult Time Spent in preparation of Discharge (in minutes): 20 Hospital Course - Lab Results Lab Results: Micro Results 01/04/18 15:21 Naris MRSA Culture (Admit) - Final MRSA NOT DETECTED Most Recent Lab Values WBC 12.9 K/uL (4.8-10.8) H 01/10/18 04:25 RBC 4.97 Mil/uL (3.80-5.20) 01/10/18 04:25 Hgb 11.3 g/dL (12.0-16.0) L 01/10/18 04:25 Hct 36.0 % (34.0-47.0) 01/10/18 04:25 MCV 72.3 fl (81.0-99.0) L 01/10/18 04:25 MCH 22.7 pg (27.0-31.0) L 01/10/18 04:25 MCHC 31.5 g/dL (33.0-37.0) L 01/10/18 04:25 RDW 18.3 % (11.5-14.5) H 01/10/18 04:25 Plt Count 370 K/uL (130-400) 01/10/18 04:25 MPV 8.5 fl (7.2-11.7) 01/10/18 04:25 Neut % (Auto) 58.3 % (50.0-75.0) 01/10/18 04:25 Lymph % (Auto) 32.1 % (20.0-40.0) 01/10/18 04:25 Rawlins % (Auto) 7.0 % (0.0-10.0) 01/10/18 04:25 Eos % (Auto) 2.3 % (0.0-4.0) 01/10/18 04:25 Baso % (Auto) 0.3 % (0.0-2.0) 01/10/18 04:25 Neut # (Auto) 7.5 K/uL (1.8-7.0) H 01/10/18 04:25 Lymph # (Auto) 4.1 K/uL (1.0-4.3) 01/10/18 04:25 [place] # (Auto) 0.9 K/uL (0.0-0.8) H 01/10/18 04:25 Eos # (Auto) 0.3 K/uL (0.0-0.7) 01/10/18 04:25 Baso # (Auto) 0.0 K/uL (0.0-0.2) 01/10/18 04:25 Total Counted Cancelled 01/08/18 04:30 Neutrophils % (Manual) Cancelled 01/08/18 04:30 Band Neutrophils % Cancelled 01/08/18 04:30 Lymphocytes % (Manual) Cancelled 01/08/18 04:30 Reactive Lymphs % Cancelled 01/08/18 04:30 Monocytes % (Manual) Cancelled 01/08/18 04:30 Eosinophils % (Manual) Cancelled 01/08/18 04:30 Basophils % (Manual) Cancelled 01/08/18 04:30 Metamyelocytes % Cancelled 01/08/18 04:30 Myelocytes % Cancelled 01/08/18 04:30 Promyelocytes % Cancelled 01/08/18 04:30 Blast Cells % Cancelled 01/08/18 04:30 Plasma Cell % (Manual) Cancelled 01/08/18 04:30 Nucleated RBC % Cancelled 01/08/18 04:30 Hypersegmented Polys Cancelled 01/08/18 04:30 Smudge Cells Cancelled 01/08/18 04:30 Toxic Granulation Cancelled 01/08/18 04:30 Dohle Bodies Cancelled 01/08/18 04:30 Mami Rods Cancelled 01/08/18 04:30 Platelet Estimate Cancelled 01/08/18 04:30 Plt Clumps, EDTA Cancelled 01/08/18 04:30 Large Platelets Cancelled 01/08/18 04:30 Giant Platelets Cancelled 01/08/18 04:30 RBC Morphology Cancelled 01/08/18 04:30 Polychromasia Cancelled 01/08/18 04:30 Hypochromasia (manual) Cancelled 01/08/18 04:30 Poikilocytosis (manual Cancelled 01/08/18 04:30 Basophilic Stippling Cancelled 01/08/18 04:30 Anisocytosis (manual) Cancelled 01/08/18 04:30 Microcytosis (manual) Cancelled 01/08/18 04:30 Macrocytosis (manual) Cancelled 01/08/18 04:30 Spherocytes Cancelled 01/08/18 04:30 Sickle Cells Cancelled 01/08/18 04:30 Target Cells Cancelled 01/08/18 04:30 Tear Drop Cells Cancelled 01/08/18 04:30 Ovalocytes Cancelled 01/08/18 04:30 Stomatocytes Cancelled 01/08/18 04:30 Helmet Cells Cancelled 01/08/18 04:30 [place] Bodies Cancelled 01/08/18 04:30 Ignacio Cells Cancelled 01/08/18 04:30 Acanthocytes (Spur) Cancelled 01/08/18 04:30 Rouleaux Cancelled 01/08/18 04:30 Schistocytes Cancelled 01/08/18 04:30 ESR 8 mm/hr (0-20) 01/04/18 13:58 PT 14.1 Seconds (9.8-13.1) H 01/03/18 16:44 INR 1.3 01/03/18 16:44 APTT 35.0 Seconds (25.6-37.1) 01/03/18 16:44 D-Dimer, Quantitative 2102 ng/mlDDU (0-230) H 01/03/18 16:44 Protein C Activity 64 % (70-180) L 01/04/18 13:58 Protein S Activity 63 % (60-140) 01/04/18 13:58 Factor V see note 01/04/18 13:58 pCO2 24 mm/Hg (35-45) L 01/03/18 19:56 pO2 60 mm/Hg (80-100) L 01/03/18 19:56 HCO3 21.6 mmol/L (21-28) 01/03/18 19:56 ABG pH 7.48 (7.35-7.45) H 01/03/18 19:56 ABG Total CO2 18.6 mmol/L (22-28) L 01/03/18 19:56 ABG O2 Saturation 94.1 % (95-98) L 01/03/18 19:56 ABG O2 Content 15.3 ML/dL (15-23) 01/03/18 19:56 ABG Base Excess -4.1 mmol/L (-2.0-3.0) L 01/03/18 19:56 ABG Hemoglobin 11.9 g/dL (11.7-17.4) 01/03/18 19:56 ABG Carboxyhemoglobin 1.8 % (0.5-1.5) H 01/03/18 19:56 POC ABG HHb (Measured) 5.7 % (0.0-5.0) H 01/03/18 19:56 ABG Methemoglobin 1.2 % (0.0-3.0) 01/03/18 19:56 ABG O2 Capacity 16.3 mL/dL (16-24) 01/03/18 19:56 Jeff Test Yes 01/03/18 19:56 A-a O2 Difference 60.0 mm/Hg 01/03/18 19:56 Hgb O2 Saturation 91.2 % (95.0-98.0) L 01/03/18 19:56 FiO2 21.0 % 01/03/18 19:56 Blood Gas Comments 21%rr 01/03/18 19:56 Crit Value Read Back N 01/03/18 19:56 Sodium 138 mmol/l (132-148) 01/10/18 04:25 Potassium 4.0 MMOL/L (3.6-5.0) 01/10/18 04:25 Chloride 108 mmol/L (98-107) H 01/10/18 04:25 Carbon Dioxide 22 mmol/L (22-30) 01/10/18 04:25 Anion Gap 12 (10-20) 01/10/18 04:25 BUN 7 mg/dl (7-17) 01/10/18 04:25 Creatinine 0.6 mg/dl (0.7-1.2) L 01/10/18 04:25 Est GFR ( Amer) > 60 01/10/18 04:25 Est GFR (Non-Af Amer) > 60 01/10/18 04:25 Random Glucose 83 mg/dL (65-105) 01/10/18 04:25 Calcium 9.0 mg/dL (8.4-10.2) 01/10/18 04:25 Iron 20 ug/dL (37-170) L 01/04/18 13:58 TIBC 419 ug/dL (250-450) 01/04/18 13:58 % Saturation 5 % (20-55) L 01/04/18 13:58 Total Bilirubin 0.3 mg/dl (0.2-1.3) 01/09/18 04:30 AST 29 U/L (14-36) 01/09/18 04:30 ALT 28 U/L (9-52) 01/09/18 04:30 Alkaline Phosphatase 84 U/L (38-126) 01/09/18 04:30 Troponin I < 0.0120 ng/mL (0.00-0.120) 01/03/18 16:44 NT-Pro-B Natriuret Pep 1450 pg/ml (0-450) H 01/03/18 16:44 Total Protein 7.1 G/DL (6.3-8.2) 01/09/18 04:30 Albumin 3.8 g/dL (3.5-5.0) 01/09/18 04:30 Globulin 3.3 gm/dL (2.2-3.9) 01/09/18 04:30 Albumin/Globulin Ratio 1.2 (1.0-2.1) 01/09/18 04:30 Angiotensin Convert Enz 42 U/L (9-67) 01/05/18 12:07 Homocysteine 12.8 umol/L (4.7-12.6) H 01/04/18 13:58 TSH 3rd Generation 4.60 mIU/ML (0.46-4.68) 01/03/18 16:46 Urine Color Yellow (YELLOW) 01/09/18 12:00 Urine Clarity Slighty-cloudy (Clear) 01/09/18 12:00 Urine pH 5.0 (5.0-8.0) 01/09/18 12:00 Ur Specific Una 1.017 (1.003-1.030) 01/09/18 12:00 Urine Protein Negative mg/dL (NEGATIVE) 01/09/18 12:00 Urine Glucose (UA) Neg mg/dL (Normal) 01/09/18 12:00 Urine Ketones Negative mg/dL (NEGATIVE) 01/09/18 12:00 Urine Blood Negative (NEGATIVE) 01/09/18 12:00 Urine Nitrate Negative (NEGATIVE) 01/09/18 12:00 Urine Bilirubin Negative (NEGATIVE) 01/09/18 12:00 Urine Urobilinogen 0.2-1.0 mg/dL (0.2-1.0) 01/09/18 12:00 Ur Leukocyte Esterase Small Adeline/uL (Negative) 01/09/18 12:00 Urine RBC (Auto) 1 /hpf (0-3) 01/09/18 12:00 Urine Microscopic WBC 9 /hpf (0-5) H 01/09/18 12:00 Ur Squamous Epith Cells 2 /hpf (0-5) 01/09/18 12:00 BUSTER Nuclear Membr Pat Positive (Negative) H 01/04/18 13:58 Proteinase 3 (PR3) <1.0 AI (<1.0) 01/04/18 13:58 Myeloperoxidase Ab <1.0 AI (<1.0) 01/04/18 13:58 BLOOD COLLECTOR Antibody <1.0 AI (<1.0) 01/04/18 13:58 BLOOD COLLECTOR Antibody Interp Negative (Negative) 01/04/18 13:58 A-PM Scleroderma 100 Ab <20 Units (<20) 01/04/18 12:00 Double Strand DNA Ab 1 IU/mL 01/04/18 13:58 [id number] Ab 13 PAMELA (<=20) 01/04/18 13:58 Beta-2 GPI IgG Ab <9 SGU (<=20) 01/04/18 13:58 Beta-2 GPI IgM Ab >150 SMU (<=20) H 01/04/18 13:58 Phosphatidylserine IgG 19 U/mL (<10) H 01/04/18 13:58 Phosphatidylserine IgA <20 U/mL (<20) 01/04/18 13:58 Phosphatidylserine IgM >100 U/mL (<25) H 01/04/18 13:58 Anti-Phospholipid Intrp see note 01/04/18 13:58 Anti-Cardiolipin IgG Ab <14 GPL (<=14) 01/04/18 13:58 Anti-Cardiolipin IgA Ab <11 APL (<=11) 01/04/18 13:58 Anti-Cardiolipin IgM Ab 116 MPL (<=12) H 01/04/18 13:58 Hep Bs Antigen Negative (NEGATIVE) 01/04/18 13:58 Hep B Core IgM Ab Negative (NEGATIVE) 01/04/18 13:58 Hepatitis C Antibody Negative (NEGATIVE) 01/04/18 13:58 HIV 1&2 Antibody Screen Negative (NEGATIVE) 01/04/18 13:58 Prothrombin Mut Interp see note 01/04/18 13:58 Prothrombin Gene Mutate see note 01/04/18 13:58 Prothromb Gene Review see note 01/04/18 13:58 Blood Type O POSITIVE 01/03/18 17:40 Antibody Screen Negative 01/03/18 17:40 BBK History Checked No verified bt 01/03/18 17:40 - Hospital Course Hospital Course: 22 y/o F with no PMH admitted for dyspnea on exertion and hypoxia, PO2 60 in ABG in RA CTA showed no PE , Doppler US - neg for DVT Echo showed dilated RV , RA and PA Pulmonary , cardiology and hematology were consulted . Hypercoagulable work up and immunologic work up were sent .Patient was transferred to ICU for lose monitoring . She underwent right sided cardic cath that showed pulmonary hypertension , normal coronaries and step up oxygenation from RV to PA Underwent OLIVA that showed perimembranous VSD Patient is currently hemodynamically stable with no dyspnea and 100 % O2 sat 100% Patient will need to follow up with tertiary center for surgical correction of VSD Hematology consulted and case discussed.Will start patient on Low dose eliquist on discharge Will discharge patient home in stable conditions All test results were discussed with patient and questions answered Follow up with [facility] Discharge Exam - Head Exam Head Exam: NORMAL INSPECTION - Eye Exam Eye Exam: EOMI, Normal appearance, PERRL Pupil Exam: NORMAL ACCOMODATION Additional comments: right ptosis and strabismus - ENT Exam ENT Exam: Mucous Membranes Moist, Normal Exam - Neck Exam Neck exam: Full Rom, Normal Inspection - Respiratory Exam Respiratory Exam: Clear to PA & Lateral, NORMAL BREATHING PATTERN. absent: Rales, Rhonchi, Wheezes, Respiratory Distress - Cardiovascular Exam Cardiovascular Exam: REGULAR RHYTHM, RRR, +S1, +S2. absent: JVD - GI/Abdominal Exam GI & Abdominal Exam: Normal Bowel Sounds, Soft. absent: Distended, Guarding, Rebound, Tenderness - Rectal Exam Rectal Exam: Deferred - Extremities Exam Extremities exam: normal capillary refill, normal inspection, pedal pulses present - Back Exam Back exam: NORMAL INSPECTION - Neurological Exam Neurological exam: Alert, CN II-XII Intact, Oriented x3 - Psychiatric Exam Psychiatric exam: Normal Affect - Skin Skin Exam: Dry, Intact, Normal Color, Warm Discharge Plan - Discharge Medications Prescriptions: Apixaban [Eliquis] 2.5 mg PO BID #60 tab - Follow Up Plan Condition: GOOD Disposition: HOME/ ROUTINE Patient education suggested?: Yes Instructions: Ventricular Septal Defect Additional Instructions: Please follow up with Dr. Grimaldo on January 10 @ 4 pm. If symptoms worsen or reoccur please return to the ER. Referrals: [facility] [place] [Outside] Jamie Barry MD [Staff Provider] -
[2018-01-10 12:45] VITALS: BP 90/63; PULSE 95; TEMP 98
--- NOTE | 2018-01-10 17:30 | PQF ---
PROVIDER RESPONSE TEXT: VSD (Ventral septal defect) leading to right sided hypertrophy and pulmonary hypertension. REVIEWER QUERY TEXT: Symptom Underlying Cause Please document the underlying diagnosis causing the patient?s documented symptom(s) of dyspnea and h ypoxia: if known OR: Unable to determine D/C Summary: PMH admitted for dyspnea on exertion and hypoxia, PO2 60 in ABG in RA CTA showed no PE , Doppler US - neg for DVT Echo showed dilated RV , RA and PA Pulmonary , cardiology and hematology w ere consulted . Hypercoagulable work up and immunologic work up were sent .Patient was transferred to ICU for lose monitoring . She underwent right sided cardic cath that showed pulmonary hypertension , normal coronaries and step up oxygenation from RV to PA Underwent OLIVA that showed perimembranous VSD Patient is currently hemodynamically stable with no dyspnea and 100 % O2 sat 100% Patient will need to follow up with tertiary center for surgical correction of VSD Hematology consulted and case discu ssed.Will start patient on Low dose eliquist on discharge Will discharge patient home in stable condi tions The patient's Clinical Indicators include: xx Query created by: Tania Farias on 01/10/2018 12:51 PM Electronically signed by: Sarthak Mora 01/10/2018 5:26 PM
[2018-01-23 10:55] VITALS: O2SAT 100
--- NOTE | 2018-02-05 16:45 | CARD ---
APPROVED REPORT Date of service: 01/09/2018 EXAM: Transesophageal echocardiogram with color flow Doppler. INDICATION ICD: Dilated RV and RA / ASD evaluation PDA/VSD Mitral Valve E/A ratio0.0 TDI E/Lateral E'0.0E/Medial E'0.0 Reason For Test : Evaluation of VSD PROCEDURE After obtaining informed consent, patient underwent transesophageal echo in the ICU/CCU. Type of Sedation : Conscious Sedation Sedation was provided by anesthesiologist. Sedation was achieved with intravenously. Transesophageal probe was inserted and advanced into esophagus without difficulty. Echo enhancement indication: R/O Septal defect. Echo enhancement agent administered: Agitated Saline The OLIVA was performed without complications. Throughout the procedure, the blood pressure, pulse oximetry, cardiac rhythm, and rate were monitored. The patient tolerated the procedure without adverse effects. Recovery from conscious sedation was uneventful and vital signs were stable. LEFT VENTRICLE The left ventricle is normal size. There is borderline concentric left ventricular hypertrophy. The left ventricular function is normal. The left ventricular ejection fraction is within the normal range. LVEF is 55-60%. There is normal LV segmental wall motion. The left ventricular diastolic function is normal. No left ventricle thrombus noted on this study. There is moderate sized supracristal ventricular septal defect present. There is no left ventricular aneurysm. RIGHT VENTRICLE The right ventricle is moderately to severely dilated. The right ventricle is mildly hypertrophied. The right ventricular systolic function is normal. ATRIA The left atrium is borderline dilated. The right atrium is severely dilated. The interatrial septum is intact with no evidence for an atrial septal defect. AORTIC VALVE The aortic valve is normal in structure. There is trace to mild aortic regurgitation. There is no aortic valvular stenosis. There is no aortic valvular vegetation. MITRAL VALVE The mitral valve is normal in structure. There is no evidence of mitral valve prolapse. There is no mitral valve stenosis. Mitral regurgitation is trace to mild. TRICUSPID VALVE The tricuspid valve is normal in structure. There is mild to moderate tricuspid regurgitation. There is no tricuspid valve prolapse or vegetation. There is no tricuspid valve stenosis. PULMONIC VALVE The pulmonary valve is normal in structure. There is no pulmonic valvular regurgitation. There is no pulmonic valvular stenosis. GREAT VESSELS The aortic root is normal in size. The IVC is normal in size and collapses >50% with inspiration. PERICARDIAL EFFUSION The pericardium appears normal. There is no pleural effusion. <Conclusion> The left ventricular function is normal. The left ventricular ejection fraction is within the normal range. LVEF is 55-60%. There is moderate sized supracristal ventricular septal defect present. The right ventricle is moderately to severely dilated. The right ventricle is mildly hypertrophied. The right atrium is severely dilated.
== END 2018-01-10 15:00 | disposition home or self-care (01) | DRG 125 ==
LOC: H.ER 16:12 → H.ERHOLD 19:04 → H.TEL 20:35 → H.ICU/CCU 01-04 11:47 → H.TEL 01-09 18:25
PROVIDERS: ADMIT Internal Medicine; ATTEND Internal Medicine
PROC: 4A023N8 Measurement of Cardiac Sampling and Pressure, Bilateral, Percutaneous Approach (ICD-10-PCS; principal; 2018-01-07)
PROC: B215YZZ Fluoroscopy of Left Heart using Other Contrast (ICD-10-PCS; 2018-01-07)
PROC: B246ZZ4 Ultrasonography of Right and Left Heart, Transesophageal (ICD-10-PCS; 2018-01-09)
DX: Q21.0 Ventricular septal defect (principal); R09.02 Hypoxemia; I07.1 Rheumatic tricuspid insufficiency; D50.9 Iron deficiency anemia, unspecified; I27.21 Secondary pulmonary arterial hypertension

== ENCOUNTER 2018-03-01 19:06 | Observation (INO) | payer MEDICAID, OTHER ==
[2018-03-01 19:07] VITALS: BMI 22.6
[2018-03-01 20:22] LABS: BASO # 0.1 K/uL (0.0-0.2); BASO % 1.2 % (0.0-2.0); EOS # 0.2 K/uL (0.0-0.7); EOS % 1.6 % (0.0-4.0); HEMOGLOBIN 13.1 g/dL (12.0-16.0); LYMPH # 3.4 K/uL (1.0-4.3); LYMPH % 34.2 % (20.0-40.0); MEAN CELL VOLUME 75.4 fl (81.0-99.0); MEAN CORPUSCULAR HEMOGLOBIN 23.8 pg (27.0-31.0); MEAN CORPUSCULAR HGB CONC 31.6 g/dL (33.0-37.0); MEAN PLATELET VOLUME 8.7 fl (7.2-11.7); MONO % 9.7 % (0.0-10.0); NEUT # 5.4 K/uL (1.8-7.0); NEUT % 53.3 % (50.0-75.0); NRBC % 0.2 % (0.0-0.0); RBC 5.5 Mil/uL (3.80-5.20); RED CELL DISTRIBUTION WIDTH 20.7 % (11.5-14.5); WHITE BLOOD COUNT 10.1 K/uL (4.8-10.8)
[2018-03-01 20:32] LABS: BLOOD UREA NITROGEN 10 mg/dl (7-17); CALCIUM 9.1 mg/dL (8.4-10.2); GFR NON-AFRICAN AMERICAN > 60
--- NOTE | 2018-03-01 20:34 | ED PDOC ---
HPI: SOB/CHF/COPD Time Seen by Provider: 03/01/18 19:39 Chief Complaint (Nursing): Respiratory Distress History Per: Patient History/Exam Limitations: no limitations Onset/Duration Of Symptoms: Hrs Current Symptoms Are (Timing): Better Initiating Event: Upper Respiratory Illness Additional Complaint(s): Hx of recently diagnosed PDA and Pulmonary HTN diagnosed on cath in January presenting with shortness of breath. Patient states it started right prior to arrival, states she was going up a flight of stairs and started having shortness of breath, palpitations, and "pain in the lungs" but denies chest pain. States that she felt worsening shortness of breath until she came to the ER and was put on oxygen. States that on oxygen she feels "completely fine". Patient states she's due for "surgery" for her "hole in the heart". PMD: [facility] Past Medical History Reviewed: Historical Data, Nursing Documentation, Vital Signs Vital Signs: Last Vital Signs Temp 98 F 03/01/18 19:11 Pulse 118 H 03/01/18 19:11 Resp 21 03/01/18 20:13 BP 107/53 L 03/01/18 19:11 Pulse Ox 93 L 03/01/18 20:13 - Medical History PMH: Denies: Chronic Kidney Disease Other PMH: PDA, Pulmonary HTN - Surgical History Surgical History: No Surg Hx - Family History Family History: States: Unknown Family Hx - Home Medications Home Medications: Ambulatory Orders Medication Instructions Recorded Apixaban [Eliquis] 2.5 mg PO BID #60 tab 01/08/18 - Allergies Allergies/Adverse Reactions: Allergies Allergy/AdvReac Type Severity Reaction Status Date / Time No Known Allergies Allergy Verified 12/31/17 15:36 Review of Systems ROS Statement: Except As Marked, All Systems Reviewed And Found Negative Respiratory: Positive for: Shortness of Breath Physical Exam - Reviewed Nursing Documentation Reviewed: Yes Vital Signs Reviewed: Yes - Physical Exam Appears: Positive for: Well, Non-toxic, No Acute Distress Head Exam: Positive for: ATRAUMATIC, NORMAL INSPECTION, NORMOCEPHALIC Skin: Positive for: Normal Color, Warm, DRY Eye Exam: Positive for: EOMI, Normal appearance, PERRL ENT: Positive for: Normal ENT Inspection Neck: Positive for: Normal, Painless ROM Cardiovascular/Chest: Positive for: Tachycardia Respiratory: Positive for: Normal Breath Sounds. 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 Negative for: Motor/Sensory Deficits - Laboratory Results Result Diagrams: 03/01/18 20:17 03/01/18 20:17 - ECG ECG Rhythm: Positive for: Sinus Tachycardia, ST/T Changes Interpretation Of Abn EKG: TWI in anterolateral leads. Pulmonary Disease pattern Rate: 109 O2 Sat by Pulse Oximetry: 93 Pulse Ox Interpretation: Abnormal Medical Decision Making Medical Decision Making: Patient presenting with palpitations, hypoxia, "lung pain" with recent diagnosis of pulmonary HTN and PFO --Patient is hypoxic to 85% on RA, goes up to 94% on 3L NC --Patient likely suffering from worsening pulmonary HTN, possibly PE --CTA showed no PE --Patient placed in Tele Obs for dypsnea, tachycardia, hypoxia, and for further workup of condition. --Condition guarded Disposition - Clinical Impression Clinical Impression: Dyspnea, Palpitations, Pulmonary HTN - Disposition Disposition Time: 22:00 Condition: GUARDED
[2018-03-01 20:47] LABS: INR 1.3; PROTHROMBIN TIME 14.5 Seconds (9.8-13.1)
[2018-03-01 20:49] LABS: PARTIAL THROMBOPLASTIN TIME 32.9 Seconds (25.6-37.1)
[2018-03-01 21:03] LABS: VENOUS BLOOD GAS BASE EXCESS -3.9 mmol/L (0.0-2.0); VENOUS BLOOD GAS PCO2 31 mmHg (40-60); VENOUS BLOOD GAS PO2 37 mm/Hg (30-55); VENOUS BLOOD PH 7.41 (7.32-7.43)
[2018-03-01] MEDS ORDERED: Iodixanol 320 MG/ML 100 ML BOTTLE IV ONE (22:19)
[2018-03-01] MEDS ORDERED: Sodium Chloride 0.9% 50 ML IV ONE (22:19)
[2018-03-01 23:42] LABS: SQUAMOUS EPITHIAL < 1 /hpf (0-5); URINE BILIRUBIN NEGATIVE (NEGATIVE); URINE BLOOD NEGATIVE (NEGATIVE); URINE CLARITY SLIGHTY-CLOUDY (Clear); URINE COLOR YELLOW (YELLOW); URINE GLUCOSE (UA) NEG (Normal); URINE LEUKOCYTE ESTERASE TRACE Leu/uL (Negative); URINE PROTEIN NEGATIVE (NEGATIVE); URINE UROBILINOGEN 0.2-1.0 mg/dL (0.2-1.0)
--- NOTE | 2018-03-01 23:44 | CP.PCM.HP ---
History of Present Illness - History of Present Illness History of Present Illness: 22-year-old female with PMH of pulmonary hypertension secondary to VSD presents to ED for an episode of "pain in lungs" and dyspnea while walking up one flight of stairs earlier this evening. Her mom was able to help her remain standing and she denies LOC but admits to lightheadedness, palpitations, dizziness and headache. Upon arrival to the ED her O2 Sat was 87% on room air and 93% on 3L O2. The patient reports numerous episodes of dyspnea with palpitations and lightheadedness plus a chronic dry cough for the last 6 months. The associated palpitations, headaches, and lightheadedness last less than a minute and self resolve. She is unable to walk 1 block and was forced to leave her job due to the severity of her dyspnea. In January she was admitted to [facility] for a similar episode of dyspnea and was seen by cardiology who recommended she follow-up outpatient for scheduling surgical correction of VSD, however she has not yet been able to make an appointment. Patient denies LOC, seizure, nausea, vomiting, diarrhea, dysuria, fever, edema, and recent travel. PMD: [facility] PMH: Pulmonary HTN (2/2 VSD) Meds: Eliquis 2.5 mg PO BID PSH: None Social Hx: Denies smoking, alcohol, and illicit drugs OBGYN Hx: monthly - irregular, lasting 2-7 days, normal blood loss Fam Hx: Denies ROS: 12 points assessed and negative unless otherwise reported in HPI Present on Admission - Present on Admission Any Indicators Present on Admission: No History of DVT/PE: No History of Uncontrolled Diabetes: No Past Patient History - Infectious Disease Hx of Infectious Diseases: None - Past Medical History & Family History Past Medical History?: No - Past Social History Smoking Status: Never Smoked - CARDIAC Hx Cardiac Disorders: No - PULMONARY Hx Respiratory Disorders: No - NEUROLOGICAL Hx Neurological Disorder: Yes - HEENT Hx HEENT Problems: No - RENAL Hx Chronic Kidney Disease: No - ENDOCRINE/METABOLIC Hx Endocrine Disorders: No - HEMATOLOGICAL/ONCOLOGICAL Hx Blood Disorders: No - INTEGUMENTARY Hx Dermatological Problems: No - MUSCULOSKELETAL/RHEUMATOLOGICAL Hx Musculoskeletal Disorders: Yes Hx Falls: Yes - GASTROINTESTINAL Hx Gastrointestinal Disorders: No - GENITOURINARY/GYNECOLOGICAL Hx Genitourinary Disorders: No - PSYCHIATRIC Hx Substance Use: No - SURGICAL HISTORY Hx Surgeries: No - ANESTHESIA Hx Anesthesia: No Hx Anesthesia Reactions: No Meds Allergies/Adverse Reactions: Allergies Allergy/AdvReac Type Severity Reaction Status Date / Time No Known Allergies Allergy Verified 12/31/17 15:36 Physical Exam - Constitutional Appears: Non-toxic - Head Exam Head Exam: ATRAUMATIC, NORMAL INSPECTION - Eye Exam Additional comments: right amblyopia, chronic as per pt - ENT Exam ENT Exam: Mucous Membranes Moist - Respiratory Exam Respiratory Exam: Clear to Auscultation Bilateral. absent: Accessory Muscle Use, Chest Wall Tenderness - Cardiovascular Exam Cardiovascular Exam: Systolic Murmur - GI/Abdominal Exam GI & Abdominal Exam: Soft. absent: Tenderness - Extremities Exam Extremities exam: Negative for: pedal edema - Back Exam Back exam: NORMAL INSPECTION - Neurological Exam Neurological exam: Alert, Oriented x3 - Psychiatric Exam Psychiatric exam: Normal Affect, Normal Mood - Skin Skin Exam: Normal Color Results - Vital Signs Recent Vital Signs: Last Vital Signs Temp 98 F 03/01/18 19:11 Pulse 105 H 03/01/18 23:31 Resp 27 H 03/01/18 23:31 BP 105/61 03/01/18 23:31 Pulse Ox 96 03/01/18 23:31 - Labs Result Diagrams: 03/01/18 20:17 03/01/18 20:17 Labs: Laboratory Results - last 24 hr 03/01/18 03/01/18 03/01/18 20:17 20:17 20:17 WBC 10.1 RBC 5.50 H Hgb 13.1 Hct 41.5 MCV 75.4 L D MCH 23.8 L MCHC 31.6 L RDW 20.7 H Plt Count 341 MPV 8.7 Neut % (Auto) 53.3 Lymph % (Auto) 34.2 [place] % (Auto) 9.7 Eos % (Auto) 1.6 Baso % (Auto) 1.2 Neut # (Auto) 5.4 Lymph # (Auto) 3.4 [place] # (Auto) 1.0 H Eos # (Auto) 0.2 Baso # (Auto) 0.1 PT 14.5 H INR 1.3 APTT 32.9 D-Dimer, Quantitative pO2 VBG pH VBG pCO2 VBG HCO3 VBG Total CO2 VBG O2 Sat (Calc) VBG Base Excess VBG Potassium Glucose Lactate FiO2 Sodium 140 Potassium 3.9 Chloride 107 Carbon Dioxide 18 L Anion Gap 19 BUN 10 Creatinine 0.5 L Est GFR ( Amer) > 60 Est GFR (Non-Af Amer) > 60 Random Glucose 100 Calcium 9.1 Troponin I < 0.0120 Venous Blood Potassium 03/01/18 03/01/18 20:59 21:30 WBC RBC Hgb Hct MCV MCH MCHC RDW Plt Count MPV Neut % (Auto) Lymph % (Auto) [place] % (Auto) Eos % (Auto) Baso % (Auto) Neut # (Auto) Lymph # (Auto) [place] # (Auto) Eos # (Auto) Baso # (Auto) PT INR APTT D-Dimer, Quantitative 1631 H pO2 37 VBG pH 7.41 VBG pCO2 31 L VBG HCO3 21.0 VBG Total CO2 20.6 L VBG O2 Sat (Calc) 73.0 H VBG Base Excess -3.9 L VBG Potassium 3.5 L Glucose 113 H Lactate 1.6 FiO2 32.0 Sodium 133.0 Potassium Chloride 104.0 Carbon Dioxide Anion Gap BUN Creatinine Est GFR ( Amer) Est GFR (Non-Af Amer) Random Glucose Calcium Troponin I Venous Blood Potassium 3.5 L Assessment & Plan - Assessment and Plan (Free Text) Assessment: 22-year-old female with PMH of pulmonary hypertension secondary to VSD presents to ED for an episode of "pain in lungs" and dyspnea while walking up one flight of stairs earlier this evening. Acute exacerbation of Pulmonary Hypertension -Likely secondary to fluid overload -OLIVA Jan 2018: Pulmonary hypertension secondary to perimembranous VSD. -Admit to telemetry for observation -CXR: increased pulmonary vasculature (pending final report) -CT: no pulmonary embolism -Lasix 40 Q12 -Continuous O2 NC @ 3L -Continuous Pulse Ox monitoring DVT Prophylaxis Apixiban 2.5mg PO Q12
[2018-03-01 23:55] LABS: BARBITURATES, UR NEGATIVE (NEGATIVE); BENZODIAZEPINES, UR NEGATIVE (NEGATIVE); OPIATES, UR NEGATIVE (NEGATIVE); PHENCYCLIDINE, UR NEGATIVE (NEGATIVE)
[2018-03-02 05:49] LABS: BLOOD UREA NITROGEN 9 mg/dl (7-17); CALCIUM 9.2 mg/dL (8.4-10.2); GFR NON-AFRICAN AMERICAN > 60
[2018-03-02 08:58] VITALS: O2SAT 95
--- NOTE | 2018-03-02 09:47 | CP.PCM.DIS ---
Provider - Provider Date of Admission: 03/01/18 23:13 Attending physician: Jillian Marina DO Time Spent in preparation of Discharge (in minutes): 20 Diagnosis - Discharge Diagnosis (1) Dyspnea Status: Resolved Priority: High (2) VSD (ventricular septal defect), perimembranous Status: Chronic Hospital Course - Lab Results Lab Results: Most Recent Lab Values WBC 10.1 K/uL (4.8-10.8) 03/01/18 20:17 RBC 5.50 Mil/uL (3.80-5.20) H 03/01/18 20:17 Hgb 13.1 g/dL (12.0-16.0) 03/01/18 20:17 Hct 41.5 % (34.0-47.0) 03/01/18 20:17 MCV 75.4 fl (81.0-99.0) L D 03/01/18 20:17 MCH 23.8 pg (27.0-31.0) L 03/01/18 20:17 MCHC 31.6 g/dL (33.0-37.0) L 03/01/18 20:17 RDW 20.7 % (11.5-14.5) H 03/01/18 20:17 Plt Count 341 K/uL (130-400) 03/01/18 20:17 MPV 8.7 fl (7.2-11.7) 03/01/18 20:17 Neut % (Auto) 53.3 % (50.0-75.0) 03/01/18 20:17 Lymph % (Auto) 34.2 % (20.0-40.0) 03/01/18 20:17 [place] % (Auto) 9.7 % (0.0-10.0) 03/01/18 20:17 Eos % (Auto) 1.6 % (0.0-4.0) 03/01/18 20:17 Baso % (Auto) 1.2 % (0.0-2.0) 03/01/18 20:17 Neut # (Auto) 5.4 K/uL (1.8-7.0) 03/01/18 20:17 Lymph # (Auto) 3.4 K/uL (1.0-4.3) 03/01/18 20:17 [place] # (Auto) 1.0 K/uL (0.0-0.8) H 03/01/18 20:17 Eos # (Auto) 0.2 K/uL (0.0-0.7) 03/01/18 20:17 Baso # (Auto) 0.1 K/uL (0.0-0.2) 03/01/18 20:17 PT 14.5 Seconds (9.8-13.1) H 03/01/18 20:17 INR 1.3 03/01/18 20:17 APTT 32.9 Seconds (25.6-37.1) 03/01/18 20:17 D-Dimer, Quantitative 1631 ng/mlDDU (0-230) H 03/01/18 21:30 pO2 37 mm/Hg (30-55) 03/01/18 20:59 VBG pH 7.41 (7.32-7.43) 03/01/18 20:59 VBG pCO2 31 mmHg (40-60) L 03/01/18 20:59 VBG HCO3 21.0 mmol/L 03/01/18 20:59 VBG Total CO2 20.6 mmol/L (22-28) L 03/01/18 20:59 VBG O2 Sat (Calc) 73.0 % (40-65) H 03/01/18 20:59 VBG Base Excess -3.9 mmol/L (0.0-2.0) L 03/01/18 20:59 VBG Potassium 3.5 mmol/L (3.6-5.2) L 03/01/18 20:59 Sodium 133.0 mmol/L (132-148) 03/01/18 20:59 Chloride 104.0 mmol/L (98-107) 03/01/18 20:59 Glucose 113 mg/dL (65-105) H 03/01/18 20:59 Lactate 1.6 mmol/L (0.7-2.1) 03/01/18 20:59 FiO2 32.0 % 03/01/18 20:59 Sodium 139 mmol/l (132-148) 03/02/18 04:40 Potassium 3.6 MMOL/L (3.6-5.0) 03/02/18 04:40 Chloride 104 mmol/L (98-107) 03/02/18 04:40 Carbon Dioxide 20 mmol/L (22-30) L 03/02/18 04:40 Anion Gap 19 (10-20) 03/02/18 04:40 BUN 9 mg/dl (7-17) 03/02/18 04:40 Creatinine 0.6 mg/dl (0.7-1.2) L 03/02/18 04:40 Est GFR ( Amer) > 60 03/02/18 04:40 Est GFR (Non-Af Amer) > 60 03/02/18 04:40 Random Glucose 90 mg/dL (65-105) 03/02/18 04:40 Calcium 9.2 mg/dL (8.4-10.2) 03/02/18 04:40 Troponin I < 0.0120 ng/mL (0.00-0.120) 03/01/18 20:17 Venous Blood Potassium 3.5 mmol/L (3.6-5.2) L 03/01/18 20:59 Urine Color Yellow (YELLOW) 03/01/18 23:25 Urine Clarity Slighty-cloudy (Clear) 03/01/18 23:25 Urine pH 6.0 (5.0-8.0) 03/01/18 23:25 Ur Specific [place] 1.020 (1.003-1.030) 03/01/18 23:25 Urine Protein Negative mg/dL (NEGATIVE) 03/01/18 23:25 Urine Glucose (UA) Neg mg/dL (Normal) 03/01/18 23:25 Urine Ketones Negative mg/dL (NEGATIVE) 03/01/18 23:25 Urine Blood Negative (NEGATIVE) 03/01/18 23:25 Urine Nitrate Negative (NEGATIVE) 03/01/18 23:25 Urine Bilirubin Negative (NEGATIVE) 03/01/18 23:25 Urine Urobilinogen 0.2-1.0 mg/dL (0.2-1.0) 03/01/18 23:25 Ur Leukocyte Esterase Trace [place]/uL (Negative) 03/01/18 23:25 Urine RBC (Auto) < 1 /hpf (0-3) 03/01/18 23:25 Urine Microscopic WBC < 1 /hpf (0-5) 03/01/18 23:25 Ur Squamous Epith Cells < 1 /hpf (0-5) 03/01/18 23:25 Urine Opiates Screen Negative (NEGATIVE) 03/01/18 23:25 Urine Methadone Screen Negative (NEGATIVE) 03/01/18 23:25 Ur Barbiturates Screen Negative (NEGATIVE) 03/01/18 23:25 Ur Phencyclidine Scrn Negative (NEGATIVE) 03/01/18 23:25 Ur Amphetamines Screen Negative (NEGATIVE) 03/01/18 23:25 U Benzodiazepines Scrn Negative (NEGATIVE) 03/01/18 23:25 U Oth Cocaine Metabols Negative (NEGATIVE) 03/01/18 23:25 U Cannabinoids Screen Negative (NEGATIVE) 03/01/18 23:25 - Hospital Course Hospital Course: 22 yo f with PMH of Pulm Htn sec to VSD presented to ED due to episode of Pain in lungs, and dyspnea. Pt was admitted for further evaluation. Patient X-ray increase pulm vasculature, CT no pulm embolism, Patient was put on lasix 40 q12, and continuous 02 NC @3L and patient was put on continuous pulse ox monitoring. Home medication (eliquis 2.5mg BID) was continued. Pt was seen and examined today. Pt oxygen improved, blood pressure was low, and lasix was stopped. Pt felt better, she can breath better, she was off oxygen. Pt is comfortable to go home Pt chart were reviewed, Vitals were improving. Pt is stable to be discharged Pt was advised to make appointment with Cardiology ( Dr Barry) and follow up. Script of Ox 2L was given for use PRN OLIVA : Pulmonary hypertension secondary to perimembranous VSD. Discharge Exam - Head Exam Head Exam: ATRAUMATIC, NORMAL INSPECTION, NORMOCEPHALIC - Eye Exam Pupil Exam: NORMAL ACCOMODATION, PERRL - Respiratory Exam Respiratory Exam: Clear to PA & Lateral, NORMAL BREATHING PATTERN, UNREMARKABLE - Cardiovascular Exam Cardiovascular Exam: REGULAR RHYTHM, +S1, +S2 - GI/Abdominal Exam GI & Abdominal Exam: Normal Bowel Sounds, Unremarkable. absent: Tenderness - Extremities Exam Extremities exam: full ROM - Back Exam Back exam: NORMAL INSPECTION - Neurological Exam Neurological exam: Alert, CN II-XII Intact, Normal Gait, Oriented x3 - Psychiatric Exam Psychiatric exam: Normal Affect, Normal Mood - Skin Skin Exam: Dry, Intact, Normal Color, Warm Discharge Plan - Follow Up Plan Condition: GUARDED Disposition: HOME/ ROUTINE
--- NOTE | 2018-03-02 09:51 | RAD ---
Date of service: 03/01/2018 HISTORY: Recently diagnosed pulmonary HTN, PDA; SOB/palpita COMPARISON: Comparison chest 01/06/2018 TECHNIQUE: Chest PA and lateral FINDINGS: LUNGS: No active pulmonary disease. PLEURA: No significant pleural effusion identified. No pneumothorax apparent. CARDIOVASCULAR: No aortic calcification present. Heart size within range of normal. Prominent appearing right main pulmonary artery. No pulmonary vascular congestion. OSSEOUS STRUCTURES: No significant abnormalities. VISUALIZED UPPER ABDOMEN: Normal. OTHER FINDINGS: None. IMPRESSION: No acute infiltrate. Prominent right main pulmonary artery.
--- NOTE | 2018-03-02 10:06 | CARD ---
APPROVED REPORT Date of service: 03/01/2018 EKG Measurement Heart [id number] <Conclusion> Sinus tachycardia Biatrial enlargement Right ventricular hypertrophy with repolarization abnormality Nonspecific T wave abnormality Abnormal ECG
--- NOTE | 2018-03-02 11:53 | CT ---
Date of service: 03/01/2018 PROCEDURE: CT Chest with contrast (Pulmonary Angiogram) HISTORY: SOB, hypoxia, r/o PE COMPARISON: Comparison made with chest radiograph earlier same day dated 03/01/2018. TECHNIQUE: Axial computed tomography images were obtained of the chest in the pulmonary arterial phase of enhancement. Coronal and sagittal reformatted images were created and reviewed. Intravenous contrast dose: 95 cc Visipaque 320 Radiation dose: Total exam DLP = 183.06 mGy-cm. This CT exam was performed using one or more of the following dose reduction techniques: Automated exposure control, adjustment of the mA and/or kV according to patient size, and/or use of iterative reconstruction technique. FINDINGS: PULMONARY ARTERIES: Visualized of pulmonary trunk, right and left main, lobar, segmental and proximal subsegmental branches of the pulmonary arteries are well opacified with no definitive filling defects seen to suggest acute central pulmonary embolus.. The pulmonary trunk is dilated measuring approximately 3.4 cm. The mild reflux of contrast material into the hepatic IVC and to a lesser degree hepatic veins. Rule out underlying pulmonary arterial hypertension. AORTA: No acute findings. No thoracic aortic aneurysm. Ascending thoracic aorta measures approximately 2.5 cm and descending thoracic aorta measures approximately 1.4 cm.. No aortic atherosclerotic calcification or mural plaque present. LUNGS: Unremarkable. No nodule, mass or pulmonary consolidation. PLEURAL SPACES: Unremarkable. No effusion or pneumothorax. HEART: Right atrium slightly dilated. No significant pericardial effusion. LYMPH NODES: No lymphadenopathy. BONES, CHEST WALL: Unremarkable. No fracture or destructive lesion OTHER FINDINGS: Apparent intraluminal gallbladder calculus. IMPRESSION: No evidence of acute central pulmonary embolus. Dilated pulmonary trunk. Slight reflux of contrast material into the hepatic IVC and to a lesser degree hepatic veins; the rule out underlying pulmonary arterial hypertension. Right atrium slightly dilated. Apparent cholelithiasis.
[2018-03-02 16:45] VITALS: BP 82/53; PULSE 89; RESP 16; TEMP 98.3
== END 2018-03-02 18:15 | disposition home or self-care (01) ==
LOC: H.ER 19:06 → H.ERHOLD 23:13 → H.TEL 23:47
PROVIDERS: ADMIT Student in an Organized Health Care Education/Training Program; ATTEND Student in an Organized Health Care Education/Training Program
DX: Q21.0 Ventricular septal defect (principal); I27.20 Pulmonary hypertension, unspecified; J44.9 Chronic obstructive pulmonary disease, unspecified; R09.02 Hypoxemia; Z79.01 Long term (current) use of anticoagulants; Q21.1 Atrial septal defect; R00.2 Palpitations; E87.70 Fluid overload, unspecified
CPT/HCPCS: 36415; 71046; 71275; 80048; 80324; 80345; 80346; 80349; 80353; 80358; 80361; 81003; 81025; 82803; 83992; 84484; 85025; 85378; 85610; 85730; 93005; 94761; 99285; G0378; J1940; Q9967

== ENCOUNTER 2018-04-05 20:10 | Observation (INO) | payer OTHER, SELFPAY ==
[2018-04-05 20:10] VITALS: BMI 22.6
[2018-04-05 21:06] LABS: BASO # 0.1 K/uL (0.0-0.2); BASO % 0.7 % (0.0-2.0); EOS # 0.1 K/uL (0.0-0.7); EOS % 0.7 % (0.0-4.0); HEMOGLOBIN 13.5 g/dL (12.0-16.0); LYMPH # 2.8 K/uL (1.0-4.3); LYMPH % 25.6 % (20.0-40.0); MEAN CELL VOLUME 76.2 fl (81.0-99.0); MEAN CORPUSCULAR HEMOGLOBIN 24.2 pg (27.0-31.0); MEAN CORPUSCULAR HGB CONC 31.7 g/dL (33.0-37.0); MEAN PLATELET VOLUME 8.4 fl (7.2-11.7); MONO # 0.9 K/uL (0.0-0.8); RBC 5.56 Mil/uL (3.80-5.20); RED CELL DISTRIBUTION WIDTH 19.6 % (11.5-14.5); WHITE BLOOD COUNT 10.8 K/uL (4.8-10.8)
[2018-04-05 21:12] LABS: INR 1.4; PROTHROMBIN TIME 15.9 Seconds (9.8-13.1)
[2018-04-05 21:14] LABS: PARTIAL THROMBOPLASTIN TIME 31.4 Seconds (25.6-37.1)
[2018-04-05 21:17] LABS: ALB/GLOB RATIO 1.3 (1.0-2.1); ALBUMIN 4.3 g/dL (3.5-5.0); ALT/SGPT 34 U/L (9-52); AST/SGOT 36 U/L (14-36); BLOOD UREA NITROGEN 20 mg/dl (7-17); CALCIUM 9.5 mg/dL (8.4-10.2); GFR NON-AFRICAN AMERICAN > 60
[2018-04-05 21:27] LABS: B-TYPE NATRIURETIC PEPTIDE 2280 pg/ml (0-450)
--- NOTE | 2018-04-05 22:15 | ED PDOC ---
Syncope/Near Syncope/Dizziness Time Seen by Provider: 04/05/18 20:21 Chief Complaint (Nursing): Weakness/Neurological Deficit Chief Complaint (Provider): Weakness/Neurological Deficit History Per: Patient History/Exam Limitations: no limitations Onset/Duration Of Symptoms: Hrs (x1) Current Symptoms Are (Timing): Still Present Additional Complaint(s): Patient is a 22 y/o female with a PMHx of pulmonary HTN and VSD who presents to the ED for evaluation chest pain and palpitations associated with lightheadedness, onset one hour prior to arrival. Pt states symptoms lasted for 20 minutes. The issues resolved en-route to the ER when given oxygen and Zofran by EMS. The pt states she experienced several episodes of vomiting and persisting "squiggly lines" in vision. Patient reports she has had these symptoms before due to her cardiac illness. Of note, pt is currently undergoing cardiac workup with Dr. Jhonny rosario for VSD repair when insurance allows. Additionally, pt states to being compliant with medication. However, a few of recently stopped including a diuretic as well as other cardiac medication she does not recall. PCP: Kimi Rosario Past Medical History Reviewed: Historical Data, Nursing Documentation, Vital Signs Vital Signs: Last Vital Signs Temp 97.7 F 04/05/18 20:14 Pulse 113 H 04/05/18 20:14 Resp 20 04/05/18 20:14 BP 86/70 L 04/05/18 20:14 Pulse Ox 97 04/05/18 20:14 - Medical History PMH: HTN (Pulmonary) Denies: HIV, Chronic Kidney Disease Other PMH: Ventricular Septal Defects - Surgical History Surgical History: No Surg Hx - Family History Family History: States: Unknown Family Hx - Home Medications Home Medications: Ambulatory Orders Medication Instructions Recorded Apixaban [Eliquis] 2.5 mg PO BID #60 tab 01/08/18 - Allergies Allergies/Adverse Reactions: Allergies Allergy/AdvReac Type Severity Reaction Status Date / Time No Known Allergies Allergy Verified 04/05/18 20:14 Review of Systems ROS Statement: Except As Marked, All Systems Reviewed And Found Negative (as per HPI) Eyes: Positive for: Other (Visual Acuity; "Squiggly Lines" in vision persists) Cardiovascular: Positive for: Chest Pain, Palpitations Gastrointestinal: Positive for: Vomiting Neurological: Positive for: Other (Lightheadedness) Physical Exam - Reviewed Nursing Documentation Reviewed: Yes Vital Signs Reviewed: Yes - Physical Exam Appears: Positive for: No Acute Distress (Smaller than given age). Negative for: Well (Appears Chronically Ill) Head Exam: Positive for: ATRAUMATIC, NORMOCEPHALIC Skin: Positive for: Warm, Dry Eye Exam: Positive for: Other (Chronic Amblyopia of Right Eye ) ENT: Negative for: Pharyngeal Erythema, Tonsillar Exudate Neck: Positive for: Painless ROM, Supple Cardiovascular/Chest: Positive for: Chest Non Tender, Tachycardia (with Regular Rhythm) Respiratory: Negative for: Accessory Muscle Use, Rales, Respiratory Distress Gastrointestinal/Abdominal: Positive for: Soft. Negative for: Tenderness Back: Positive for: Normal Inspection. Negative for: Vertebral Tenderness Extremity: Positive for: Other (poor muscle bulk). Negative for: Pedal Edema, Swelling Lymphatic: Negative for: Adenopathy Neurologic/Psych: Positive for: Alert, Oriented - Laboratory Results Result Diagrams: 04/05/18 20:52 04/05/18 20:52 - ECG ECG Rhythm: Positive for: Sinus Rhythm, Right Bundle Branch Block. Negative for: ST/T Changes (T wave inversion) Interpretation Of Abn EKG: Septal and Anterior Lung Leads, however, abnormalities are similar to other EKG reads from a month prior. Rate: 100 O2 Sat by Pulse Oximetry: 97 (RA) Pulse Ox Interpretation: Normal Medical Decision Making Medical Decision Making: Time:2044 Impression: Chest Pain, Palpitation, and Hypoxia due to possible exacerbation of Pulmonary HTN, ACS, electrolyte abnormality, or near syncope. Plan: -Type and Screen -EKG -Alcohol Serum -BNP -CMP -Urine Drug Screen -Magnesium -Phosphorus -Troponin I -Urine -Urine Dipstick -CBC -Partial Thromboplastin Time -CXR Portable -Grooming Assistant -IV Insertion (Saline Lock) -O2 Via NC Time:2204 Lab results show an increase in pro-BNP. No other abnormalities present. Call for Dr. Barry placed. Time:[address] Barry finding. agrees with plan of care. Hospitalist, Dr. Joe, contacted for continued observation. Scribe Attestation: Documented by Juvenal Dobson, acting as a scribe for Gail Ha MD. Provider Scribe Attestation: All medical record entries made by the Scribe were at my direction and personally dictated by me. I have reviewed the chart and agree that the record accurately reflects my personal performance of the history, physical exam, medical decision making, and the department course for this patient. I have also personally directed, reviewed, and agree with the discharge instructions and disposition. Disposition - Clinical Impression Clinical Impression: Near syncope, Pulmonary HTN, VSD (ventricular septal defect), perimembranous - Patient ED Disposition Is Patient to be Admitted: Yes Counseled Patient/Family Regarding: Studies Performed, Diagnosis - Disposition Disposition Time: 22:00 Condition: GUARDED - Pt Status Changed To: Hospital Disposition Of: Observation - POA Present On Arrival: None
--- NOTE | 2018-04-05 23:17 | CP.PCM.HP ---
History of Present Illness - History of Present Illness History of Present Illness: 22 y/o F with a PMx of pulmonary HTN secondary to VSD was brought by her mother due to generalized weakness episode that occured ~7pm today and lasted for ~20 minutes. Pt reports that her mother was assisting her while taking a bath. As per mother, pt collapse in mother's arms, then lips and b/l hand's palms turned blue, mother had to call pt's brother to move pt to [facility]. Pt reports feeling lightheaded, having lung pain, L arm pain, SOB and palpitations during this episode. After being transferred to [facility], pt developed 2 episodes of non-bloody non-bilious clear vomiting and persisting "squiggly lines". Pt reports being admitted to this hospital ~2 times due to similar episodes in the past few months. No LOC, seizures, head trauma, headache, diarrhea, rash or peripheral edema. PMD: [facility] NKDA Meds: Elliquis 2.5mg BID -PMHx: Perimembranous ventricular septal defect, pulmonary hypertension. All diagnosed ~6 months ago. -PSHx: denied -FHx: denied -SHx: Denies smoking, alcohol, and illicit drugs At ED: --CBC showed microcytosis, normal Hgb, plt count 415K-high. --Coagulation profile: elevated PT 15.9, --CMP remarkable for low bicarb 19. --Troponin neg x1 --Pro-BNP 2,280-high --serum alcohol negative. --EKG, preliminary results: NSR, incomplete RBBB, RVH, prolong QT segment. --CXR, final report pending. --Oxygen by NC at 2L/min, oxygenating well. Present on Admission - Present on Admission Any Indicators Present on Admission: No Review of Systems - Constitutional Constitutional: Chills, Weakness. absent: Excessive Sweating, Fever, Weight Loss - EENT Nose/Mouth/Throat: absent: Sinus Pain, Odynophagia, Sore Throat, Neck Pain, Neck Mass - Cardiovascular Cardiovascular: absent: Chest Pain, Diaphoresis, Irregular Heart Rhythm, Leg Edema - Respiratory Respiratory: Chest Congestion. absent: Cough, Dyspnea, Hemoptysis, Stridor, Pain on Inspiration - Gastrointestinal Gastrointestinal: Vomiting. absent: Abdominal Pain, Belching, Hematemesis, Odynophagia, Temesmus - Genitourinary Genitourinary: absent: Dysuria, Hematuria, Pyuria, Urinary Frequency - Integumentary Integumentary: Change in Hair Past Patient History - Infectious Disease Hx of Infectious Diseases: None - Past Medical History & Family History Past Medical History?: Yes - Past Social History Smoking Status: Never Smoked - CARDIAC Hx Hypertension: Yes (Pulmonary) - PULMONARY Hx Respiratory Disorders: Yes Other/Comment: Hypoxia, Pulmonary HTN - NEUROLOGICAL Hx Neurological Disorder: Yes Hx Syncope: Yes - HEENT Hx HEENT Problems: No - RENAL Hx Chronic Kidney Disease: No - ENDOCRINE/METABOLIC Hx Endocrine Disorders: No - HEMATOLOGICAL/ONCOLOGICAL Hx Human Immunodeficiency Virus (HIV): No - INTEGUMENTARY Hx Dermatological Problems: No - MUSCULOSKELETAL/RHEUMATOLOGICAL Hx Musculoskeletal Disorders: Yes Hx Falls: Yes - GASTROINTESTINAL Hx Gastrointestinal Disorders: No - GENITOURINARY/GYNECOLOGICAL Hx Genitourinary Disorders: No - PSYCHIATRIC Hx Substance Use: No - SURGICAL HISTORY Hx Surgeries: No - ANESTHESIA Hx Anesthesia: No Hx Anesthesia Reactions: No Meds Allergies/Adverse Reactions: Allergies Allergy/AdvReac Type Severity Reaction Status Date / Time No Known Allergies Allergy Verified 04/05/18 20:14 Physical Exam - Constitutional Appears: No Acute Distress - Head Exam Head Exam: ATRAUMATIC - Eye Exam Eye Exam: Conjunctival injection, EOMI, Normal appearance - ENT Exam ENT Exam: Normal Oropharynx. absent: Mucous Membranes Dry - Respiratory Exam Respiratory Exam: Clear to Auscultation Bilateral - Cardiovascular Exam Cardiovascular Exam: Tachycardia, +S1, +S2, Systolic Murmur - GI/Abdominal Exam GI & Abdominal Exam: Soft. absent: Distended, Guarding, Hernia, Tenderness - Extremities Exam Extremities exam: Positive for: full ROM, normal inspection. Negative for: calf tenderness, pedal edema - Neurological Exam Neurological exam: Alert, Oriented x3 - Psychiatric Exam Psychiatric exam: Normal Affect, Normal Mood Results - Vital Signs Recent Vital Signs: Last Vital Signs Temp 97.7 F 04/05/18 20:14 Pulse 100 H 04/05/18 22:53 Resp 20 04/05/18 20:14 BP 86/70 L 04/05/18 20:14 Pulse Ox 97 04/05/18 22:53 - Labs Result Diagrams: 04/05/18 20:52 04/05/18 20:52 Labs: Laboratory Results - last 24 hr 04/05/18 04/05/18 04/05/18 20:52 20:52 20:52 WBC 10.8 RBC 5.56 H Hgb 13.5 Hct 42.4 MCV 76.2 L MCH 24.2 L MCHC 31.7 L RDW 19.6 H Plt Count 415 H MPV 8.4 Neut % (Auto) 65.0 Lymph % (Auto) 25.6 Dixon % (Auto) 8.0 Eos % (Auto) 0.7 Baso % (Auto) 0.7 Neut # (Auto) 7.0 Lymph # (Auto) 2.8 Dixon # (Auto) 0.9 H Eos # (Auto) 0.1 Baso # (Auto) 0.1 PT 15.9 H INR 1.4 APTT 31.4 Sodium 139 Potassium 4.8 Chloride 107 Carbon Dioxide 18 L Anion Gap 19 BUN 20 H Creatinine 0.9 Est GFR ( Amer) > 60 Est GFR (Non-Af Amer) > 60 Random Glucose 100 Calcium 9.5 Phosphorus 5.7 H Magnesium 1.9 Total Bilirubin 0.9 AST 36 D ALT 34 Alkaline Phosphatase 78 Troponin I < 0.0120 NT-Pro-B Natriuret Pep 2280 H Total Protein 7.8 Albumin 4.3 Globulin 3.4 Albumin/Globulin Ratio 1.3 Alcohol, Quantitative < 10 Assessment & Plan - Assessment and Plan (Free Text) Assessment: 22-year-old female with PMH of pulmonary hypertension secondary to VSD presents to ED for evaluation and management of pre-syncope and pulmonary hypertension. PLAN: >Pre-Syncope. --Borderline tachycardic and borderline hypotensive. --Likely due to acute exacerbation from ventricular septal defect/pulmonary HTN. --EKG, preliminary results: NSR, incomplete RBBB, RVH, prolong QT segment. --Cardiology consult, Dr Barry. --Ultimate plan is to perform surgical correction of VSD when insurance allows. --Elliquis 2.5mg BID resumed. --F/U symptoms, vitals and cardiology recommendations. >Pulmonary Hypertensiondue secondary to VSD --Exacerbated. --on Oxygen by NC at 2L/min --OLIVA on 02/05/18: LVEF 55-60%, moderate sized supracristal VSD,RV mod to severe dilated, RV mildly hypertrophied, RA is severely dilated. --Cardiac cath on 01/07/18: nL coronaries, nL LV function, low nL end-diastolic pressure, severe pulmonary hypertension, step-off from RV to pulmonary artery suggesting PDA. --Admit to telemetry for observation. --F/U CXR final reports and event host recommendations. >DVT Prophylaxis --Apixiban 2.5mg PO Q12 - Date & Time Date: 04/05/18 Time: 23:45
[2018-04-06 00:12] LABS: BARBITURATES, UR NEGATIVE (NEGATIVE); BENZODIAZEPINES, UR NEGATIVE (NEGATIVE); OPIATES, UR NEGATIVE (NEGATIVE); PHENCYCLIDINE, UR NEGATIVE (NEGATIVE)
[2018-04-06 02:49] LABS: ABG ALLEN TEST YES; ARTERIAL BLOOD GAS HCO3 20.3 mmol/L (21-28); ARTERIAL BLOOD GAS HEMOGLOBIN 12.5 g/dL (11.7-17.4); ARTERIAL BLOOD GAS O2 CONTENT 15.3 ML/dL (15-23); ARTERIAL BLOOD GAS O2 SAT 90.1 % (95-98); ARTERIAL BLOOD GAS PCO2 24 mm/Hg (35-45); ARTERIAL BLOOD GAS PH 7.45 (7.35-7.45); ARTERIAL BLOOD GAS PO2 55 mm/Hg (80-100); ARTERIAL BLOOD GAS TCO2 17.4 mmol/L (22-28)
--- NOTE | 2018-04-06 13:40 | RAD ---
Date of service: 04/05/2018 HISTORY: chest pain COMPARISON: Comparison chest 03/01/2018 FINDINGS: LUNGS: No active pulmonary disease. Persistent slight elevation right hemidiaphragm possibly due to eventration PLEURA: No significant pleural effusion identified, no pneumothorax apparent. CARDIOVASCULAR: No aortic atherosclerotic calcification present. Normal cardiac size. No pulmonary vascular congestion. OSSEOUS STRUCTURES: No significant abnormalities. VISUALIZED UPPER ABDOMEN: Normal. OTHER FINDINGS: None. IMPRESSION: No active disease.
[2018-04-06 15:50] VITALS: BP 100/65; RESP 16; TEMP 98.1
[2018-04-06 16:03] VITALS: PULSE 100; O2SAT 97
--- NOTE | 2018-04-06 17:25 | CP.PCM.DIS ---
Provider - Provider Date of Admission: 04/05/18 22:24 Attending physician: Jorge Joe MD Consults: 04/05/18 22:29 Cardiology Consult Stat Comment: Consulting Provider: Jamie Barry Consulting Physician: Jamie Barry Reason for Consult: VSD and pulmonary hypertension and near syncope Time Spent in preparation of Discharge (in minutes): 30 Diagnosis - Discharge Diagnosis (1) Near syncope Status: Acute (2) Pulmonary HTN Status: Chronic Priority: High (3) VSD (ventricular septal defect), perimembranous Status: Chronic Hospital Course - Lab Results Lab Results: Most Recent Lab Values WBC 10.8 K/uL (4.8-10.8) 04/05/18 20:52 RBC 5.56 Mil/uL (3.80-5.20) H 04/05/18 20:52 Hgb 13.5 g/dL (12.0-16.0) 04/05/18 20:52 Hct 42.4 % (34.0-47.0) 04/05/18 20:52 MCV 76.2 fl (81.0-99.0) L 04/05/18 20:52 MCH 24.2 pg (27.0-31.0) L 04/05/18 20:52 MCHC 31.7 g/dL (33.0-37.0) L 04/05/18 20:52 RDW 19.6 % (11.5-14.5) H 04/05/18 20:52 Plt Count 415 K/uL (130-400) H 04/05/18 20:52 MPV 8.4 fl (7.2-11.7) 04/05/18 20:52 Neut % (Auto) 65.0 % (50.0-75.0) 04/05/18 20:52 Lymph % (Auto) 25.6 % (20.0-40.0) 04/05/18 20:52 Gregory % (Auto) 8.0 % (0.0-10.0) 04/05/18 20:52 Eos % (Auto) 0.7 % (0.0-4.0) 04/05/18 20:52 Baso % (Auto) 0.7 % (0.0-2.0) 04/05/18 20:52 Neut # (Auto) 7.0 K/uL (1.8-7.0) 04/05/18 20:52 Lymph # (Auto) 2.8 K/uL (1.0-4.3) 04/05/18 20:52 Gregory # (Auto) 0.9 K/uL (0.0-0.8) H 04/05/18 20:52 Eos # (Auto) 0.1 K/uL (0.0-0.7) 04/05/18 20:52 Baso # (Auto) 0.1 K/uL (0.0-0.2) 04/05/18 20:52 PT 15.9 Seconds (9.8-13.1) H 04/05/18 20:52 INR 1.4 04/05/18 20:52 APTT 31.4 Seconds (25.6-37.1) 04/05/18 20:52 pCO2 24 mm/Hg (35-45) L 04/06/18 02:40 pO2 55 mm/Hg (80-100) L 04/06/18 02:40 HCO3 20.3 mmol/L (21-28) L 04/06/18 02:40 ABG pH 7.45 (7.35-7.45) 04/06/18 02:40 ABG Total CO2 17.4 mmol/L (22-28) L 04/06/18 02:40 ABG O2 Saturation 90.1 % (95-98) L 04/06/18 02:40 ABG O2 Content 15.3 ML/dL (15-23) 04/06/18 02:40 ABG Base Excess -5.6 mmol/L (-2.0-3.0) L 04/06/18 02:40 ABG Hemoglobin 12.5 g/dL (11.7-17.4) 04/06/18 02:40 ABG Carboxyhemoglobin 2.0 % (0.5-1.5) H 04/06/18 02:40 POC ABG HHb (Measured) 9.6 % (0.0-5.0) H 04/06/18 02:40 ABG Methemoglobin 1.3 % (0.0-3.0) 04/06/18 02:40 ABG O2 Capacity 17.0 mL/dL (16-24) 04/06/18 02:40 Jeff Test Yes 04/06/18 02:40 A-a O2 Difference 115.0 mm/Hg 04/06/18 02:40 Hgb O2 Saturation 87.0 % (95.0-98.0) L 04/06/18 02:40 Vent Mode 2lnc 04/06/18 02:40 FiO2 28.0 % 04/06/18 02:40 Sodium 139 mmol/l (132-148) 04/05/18 20:52 Potassium 4.8 MMOL/L (3.6-5.0) 04/05/18 20:52 Chloride 107 mmol/L (98-107) 04/05/18 20:52 Carbon Dioxide 18 mmol/L (22-30) L 04/05/18 20:52 Anion Gap 19 (10-20) 04/05/18 20:52 BUN 20 mg/dl (7-17) H 04/05/18 20:52 Creatinine 0.9 mg/dl (0.7-1.2) 04/05/18 20:52 Est GFR ( Amer) > 60 04/05/18 20:52 Est GFR (Non-Af Amer) > 60 04/05/18 20:52 Random Glucose 100 mg/dL (65-105) 04/05/18 20:52 Calcium 9.5 mg/dL (8.4-10.2) 04/05/18 20:52 Phosphorus 5.7 mg/dl (2.5-4.5) H 04/05/18 20:52 Magnesium 1.9 MG/DL (1.6-2.3) 04/05/18 20:52 Total Bilirubin 0.9 mg/dl (0.2-1.3) 04/05/18 20:52 AST 36 U/L (14-36) D 04/05/18 20:52 ALT 34 U/L (9-52) 04/05/18 20:52 Alkaline Phosphatase 78 U/L (38-126) 04/05/18 20:52 Troponin I < 0.0120 ng/mL (0.00-0.120) 04/05/18 20:52 NT-Pro-B Natriuret Pep 2280 pg/ml (0-450) H 04/05/18 20:52 Total Protein 7.8 G/DL (6.3-8.2) 04/05/18 20:52 Albumin 4.3 g/dL (3.5-5.0) 04/05/18 20:52 Globulin 3.4 gm/dL (2.2-3.9) 04/05/18 20:52 Albumin/Globulin Ratio 1.3 (1.0-2.1) 04/05/18 20:52 Urine Opiates Screen Negative (NEGATIVE) 04/05/18 23:10 Urine Methadone Screen Negative (NEGATIVE) 04/05/18 23:10 Ur Barbiturates Screen Negative (NEGATIVE) 04/05/18 23:10 Ur Phencyclidine Scrn Negative (NEGATIVE) 04/05/18 23:10 Ur Amphetamines Screen Negative (NEGATIVE) 04/05/18 23:10 U Benzodiazepines Scrn Negative (NEGATIVE) 04/05/18 23:10 U Oth Cocaine Metabols Negative (NEGATIVE) 04/05/18 23:10 U Cannabinoids Screen Negative (NEGATIVE) 04/05/18 23:10 Alcohol, Quantitative < 10 mg/dl (0-10) 04/05/18 20:52 - Hospital Course Hospital Course: 22 y/o female with pulm HTN 2/2 VSD brought in due to generalized weakness and pre-syncope. Patient is on eliquis as a home medications. Patient evaluated in ED. CBC showed microcytosis, normal Hgb, plt count 415K-high. Coagulation profile: elevated PT 15.9, CMP remarkable for low bicarb 19, Troponin neg x1, Pro-BNP 2,280-high, serum alcohol negative, EKG, preliminary results: NSR, incomplete RBBB, RVH, prolong QT segment, CXR: No acute infiltrate, Oxygen by NC at 2L/min, oxygenating well. Patient diagnosed with presyncope likely secondary to pulm HTN and VSD. Cardiologst Dr. Barry consulted with ultimate plan to perform surgical correction of VSD when insurance allows. Patient hemodynamically stable and maintained O2 sat >90% on oxygen. Patient to be discharged home on home oxygen and to follow up with Dr. Barry on outpatient basis. Discharge Medications - Eliquis 2.5 mg PO BID - Home Oxygen, 2L via NC Discharge Exam - Head Exam Head Exam: ATRAUMATIC, NORMOCEPHALIC - Eye Exam Eye Exam: EOMI - ENT Exam ENT Exam: Mucous Membranes Moist - Neck Exam Neck exam: Full Rom - Respiratory Exam Respiratory Exam: Clear to PA & Lateral, NORMAL BREATHING PATTERN. absent: Rales, Rhonchi, Wheezes, Respiratory Distress - Cardiovascular Exam Cardiovascular Exam: +S1, +S2, Systolic Murmur - GI/Abdominal Exam GI & Abdominal Exam: Normal Bowel Sounds, Soft. absent: Distended, Tenderness - Back Exam Back exam: absent: CVA tenderness (L), CVA tenderness (R) - Neurological Exam Neurological exam: Alert, Altered, Oriented x3 - Psychiatric Exam Psychiatric exam: Normal Affect, Normal Mood - Skin Skin Exam: Dry, Intact, Normal Color, Warm Discharge Plan - Follow Up Plan Condition: FAIR Disposition: HOME/ ROUTINE Instructions: Oxygen Therapy, Adult, Ventricular Septal Defect in Children, Pulmonary Hypertension, Child (DC) Additional Instructions: Follow up with Dr. Barry on outpatient basis. Referrals: Jamie Barry MD [Staff Provider] -
--- NOTE | 2018-04-06 19:57 | CARD ---
APPROVED REPORT Date of service: 04/05/2018 EKG Measurement Heart [id number] <Conclusion> Normal sinus rhythm Biatrial enlargement Right axis deviation Incomplete right bundle branch block Right ventricular hypertrophy with repolarization abnormality T wave abnormality, consider lateral ischemia Prolonged QT Abnormal ECG
== END 2018-04-06 19:30 | disposition home or self-care (01) ==
LOC: H.ER 20:10 → H.ERHOLD 22:24 → H.TEL 23:53
PROVIDERS: ADMIT Internal Medicine; ATTEND Internal Medicine
DX: R55 Syncope and collapse (principal); I27.20 Pulmonary hypertension, unspecified; R09.02 Hypoxemia; Q21.0 Ventricular septal defect; Z79.01 Long term (current) use of anticoagulants
CPT/HCPCS: 71045; 80053; 80320; 80324; 80345; 80346; 80349; 80353; 80358; 80361; 81025; 82803; 83735; 83880; 83992; 84100; 84484; 85025; 85610; 85730; 93005; 99285; G0378

== ENCOUNTER 2018-04-28 18:56 | Emergency (ER) | payer MEDICAID ==
[2018-04-28 18:56] VITALS: BMI 22.6
[2018-04-28] MEDS ORDERED: Sodium Chloride 0.9% 1,000 ML IV STA ×2 (19:23→20:01)
--- NOTE | 2018-04-28 19:59 | ED PDOC ---
HPI: SOB/CHF/COPD Time Seen by Provider: 04/28/18 19:18 Chief Complaint (Nursing): Flu-like Symptoms Chief Complaint (Provider): Flu-like Symptoms History Per: Patient History/Exam Limitations: no limitations Onset/Duration Of Symptoms: Days (x 4) Current Symptoms Are (Timing): Still Present Quality: "Pain" Associated Symptoms: Fever, Chest Pain Additional Complaint(s): 22 year old female with a history of pulmonary hypertension presents to the ED for "lung pain" and shortness of breath that began four days ago. Patient states that she had a subjective fever and coughs so frequently that her chest hurts. She is on continuous home O2 and takes Eliquis and Digoxin. Offers no other complaints. PMD: none provided Signaling Project Engineer: Dr. Barry Past Medical History Reviewed: Historical Data, Nursing Documentation, Vital Signs Vital Signs: Last Vital Signs Temp 100.9 F H 04/28/18 19:01 Pulse 132 H 04/28/18 19:01 Resp 22 04/28/18 19:01 BP 105/83 04/28/18 19:01 Pulse Ox 97 04/28/18 19:01 - Medical History PMH: HTN (Pulmonary) Denies: HIV, Chronic Kidney Disease - Surgical History Surgical History: No Surg Hx - Family History Family History: States: Unknown Family Hx - Home Medications Home Medications: Ambulatory Orders Medication Instructions Recorded Apixaban [Eliquis] 2.5 mg PO BID #60 tab 01/08/18 Amoxicillin/Clavulanate [Augmentin 1 tab PO BID 7 Days #14 tab 04/28/18 875 MG-125 MG] Benzonatate [Tessalon Perle] 100 mg PO TID #20 capsule 04/28/18 Promethazine [Phenergan Syrup] 12.5 mg PO BID PRN #100 ml 04/28/18 - Allergies Allergies/Adverse Reactions: Allergies Allergy/AdvReac Type Severity Reaction Status Date / Time No Known Allergies Allergy Verified 04/05/18 20:14 Review of Systems ROS Statement: Except As Marked, All Systems Reviewed And Found Negative Constitutional: Positive for: Fever (subjective) Respiratory: Positive for: Cough, Shortness of Breath, Other ("lung pain") Physical Exam - Reviewed Nursing Documentation Reviewed: Yes Vital Signs Reviewed: Yes - Physical Exam Appears: Positive for: In Acute Distress (mild to moderate) Head Exam: Positive for: ATRAUMATIC, NORMAL INSPECTION, NORMOCEPHALIC Skin: Positive for: Normal Color, Warm, Dry. Negative for: Rash Eye Exam: Positive for: EOMI, Normal appearance, PERRL Neck: Positive for: Normal, Painless ROM, Supple Cardiovascular/Chest: Positive for: Tachycardia (with regular rhythm). Negative for: Murmur Respiratory: Positive for: Normal Breath Sounds, Respiratory Distress (mild to moderate respiratory distress), Other (tachypnea) Gastrointestinal/Abdominal: Positive for: Normal Exam, Soft. Negative for: Tenderness, Mass, Distended, Guarding, Rebound Back: Positive for: Normal Inspection. Negative for: L CVA Tenderness, R CVA Tenderness Extremity: Positive for: Normal ROM (x 4). Negative for: Deformity Neurologic/Psych: Positive for: Alert, Oriented (x 3). Negative for: Motor/Sensory Deficits - Laboratory Results Result Diagrams: 04/28/18 20:57 04/28/18 21:50 - ECG O2 Sat by Pulse Oximetry: 97 (RA) Pulse Ox Interpretation: Normal Medical Decision Making Medical Decision Makin:23 MDM: History of pulmonary hypertension presenting with shortness of breath and chest pain Patient is currently febrile and tachycardic Symptoms may be provider relations representative of pneumonia, influenza or an upper respiratory infection Orders: --VBG --EKG --CMP --lactic acid --Mag --Phos --Troponin --CBC --PTT --PT --CXR --NS IV 2,000 mls --Toradol 15 mg IVP --Tylenol 975 mg PO --Blood cx --Urine cx --Cardiac monitoring --UA 2245 --Patient is much improved, states she feels "a lot betteR" after receiving meds --No longer having cough or respiratory distress --Will treat empirically for bacterial respiratory infection with Augmentin --Strongly encouraged followup with PMD in 1 - 2 days --Patient states that she feels better and feels well to go home --HR still elevated, patient seems anxious currently, HR fluctuates between 116 - 120, advised to drink plenty of fluids Scribe Attestation: Documented by Anju Dailey acting as a scribe for Shashi Amado MD Provider Scribe Attestation: All medical record entries made by the Scribe were at my direction and per sonally dictated by me. I have reviewed the chart and agree that the record accurately reflects my personal performance of the history, physical exam, medical decision making, and the department course for this patient. I have also personally directed, reviewed, and agree with the discharge instructions and disposition. Disposition - Clinical Impression Clinical Impression: Cough - Disposition Referrals: Jamie Barry MD [Staff Provider] - Disposition: Routine/Home Disposition Time: 22:58 Condition: IMPROVED Prescriptions: Amoxicillin/Clavulanate [Augmentin 875 MG-125 MG] 1 tab PO BID 7 Days #14 tab Benzonatate [Tessalon Perle] 100 mg PO TID #20 capsule Promethazine [Phenergan Syrup] 12.5 mg PO BID PRN #100 ml PRN Reason: Cough Instructions: Cough in Adults Forms: [facility] (Lithuanian)
[2018-04-28 20:02] LABS: VENOUS BLOOD GAS BASE EXCESS -0.7 mmol/L (0.0-2.0); VENOUS BLOOD GAS PCO2 36 mmHg (40-60); VENOUS BLOOD GAS PO2 14 mm/Hg (30-55); VENOUS BLOOD PH 7.42 (7.32-7.43)
[2018-04-28] MEDS ORDERED: Promethazine 12.5 mg/10 ml Syrup PO STA (20:34)
[2018-04-28 21:31] LABS: BASO % 0.4 % (0.0-2.0); EOS % 0.1 % (0.0-4.0); HEMOGLOBIN 12.7 g/dL (12.0-16.0); LYMPH # 2.5 K/uL (1.0-4.3); LYMPH % 33.4 % (20.0-40.0); MEAN CORPUSCULAR HEMOGLOBIN 23.8 pg (27.0-31.0); MEAN CORPUSCULAR HGB CONC 31.3 g/dL (33.0-37.0); MEAN PLATELET VOLUME 8.2 fl (7.2-11.7); MONO # 1.1 K/uL (0.0-0.8); MONO % 15.2 % (0.0-10.0); NEUT # 3.8 K/uL (1.8-7.0); NEUT % 50.9 % (50.0-75.0); RBC 5.35 Mil/uL (3.80-5.20); RED CELL DISTRIBUTION WIDTH 18.1 % (11.5-14.5); WHITE BLOOD COUNT 7.5 K/uL (4.8-10.8)
[2018-04-28 21:34] LABS: INR 1.4; PROTHROMBIN TIME 15.9 Seconds (9.8-13.1)
[2018-04-28 21:36] LABS: PARTIAL THROMBOPLASTIN TIME 34.2 Seconds (25.6-37.1)
[2018-04-28] MEDS ORDERED: Promethazine 6.25 MG/5 ML CUP ONE (21:49)
[2018-04-28 22:16] LABS: ALB/GLOB RATIO 1.1 (1.0-2.1); ALBUMIN 3.9 g/dL (3.5-5.0); ALT/SGPT 33 U/L (9-52); AST/SGOT 29 U/L (14-36); BLOOD UREA NITROGEN 17 mg/dl (7-17); CALCIUM 8.7 mg/dL (8.4-10.2); GFR NON-AFRICAN AMERICAN > 60
[2018-04-29 00:06] VITALS: BP 110/80; PULSE 118; RESP 19; TEMP 97.5
[2018-04-29 05:16] VITALS: O2SAT 97
--- NOTE | 2018-04-29 10:17 | RAD ---
Date of service: 04/28/2018 HISTORY: fever, cough COMPARISON: Chest radiograph dated 04/05/2018. FINDINGS: LUNGS: No active pulmonary disease. PLEURA: Stable elevation of the right hemidiaphragm. No significant pleural effusion identified, no pneumothorax apparent. CARDIOVASCULAR: No aortic atherosclerotic calcification present. Normal cardiac size. No pulmonary vascular congestion. OSSEOUS STRUCTURES: No significant abnormalities. VISUALIZED UPPER ABDOMEN: Normal. OTHER FINDINGS: None. IMPRESSION: No active disease.
--- NOTE | 2018-04-29 19:46 | CARD ---
APPROVED REPORT Date of service: 04/28/2018 EKG Measurement Heart [id number] <Conclusion> Sinus tachycardia Biatrial enlargement Right axis deviation Pulmonary disease pattern Right ventricular hypertrophy with repolarization abnormality Abnormal ECG
== END 2018-04-28 23:10 | disposition home or self-care (01) ==
LOC: H.ER 18:56
DX: R05 Cough (principal); I27.0 Primary pulmonary hypertension; R00.0 Tachycardia, unspecified; R50.9 Fever, unspecified; Z79.01 Long term (current) use of anticoagulants
CPT/HCPCS: 71045; 80053; 82803; 83735; 84100; 84484; 84702; 85025; 85610; 85730; 87040; 93005; 99283; J7030